=== PATIENT | male | born 1945 | race Caucasian/White ===

== ENCOUNTER 2017-03-21 06:41 | Inpatient (IN) | payer OTHER, MEDICARE ==
[~2017-03-21] VITALS: Ht 170.2 cm; Wt 79.4 kg
--- NOTE | 2017-03-21 07:15 | ED MVC/FALL/TRAUMA COMPLAINT ---
History of Present Illness General Chief Complaint: Fall Stated Complaint: BIBA FOR EVAL FOR FALL Source: patient, EMS Exam Limitations: clinical condition, dementia Vital Signs & Intake/Output Vital Signs & Intake/Output Vital Signs Date Time Temp Pulse Resp B/P B/P Pulse O2 O2 Flow FiO2 Mean Ox Delivery Rate 03/21 1107 97.6 136 22 113/68 96 Room Air 03/21 1103 96.8 136 128/81 03/21 1058 97.1 136 22 128/81 94 Room Air 03/21 1049 97.1 136 20 111/73 95 Room Air 03/21 1036 98.3 136 20 107/71 03/21 1033 136 107/66 03/21 1030 135 107/78 03/21 1029 134 118/76 03/21 1026 136 107/71 03/21 1017 98.0 137 20 125/87 97 Room Air 03/21 0658 98 Room Air 03/21 0656 97.7 137 20 118/83 96 Room Air Allergies Coded Allergies: No Known Allergies (03/21/17) Triage Note: PER ASSISTED LIVING AND EMS PT FELL OOB TRYING TO GET UP PT HX OF TRYING TO BE 1ST IN COMMON AREA TO READ PAPER, DENIES LOC. PT EXTREMELY NOOKSACK C COLLAR IN PLACE FOR PRECAUTION PER EMS. PT UNCLEAR TO EVENTS D/T HEARD OF HEARING. UPON CHANGING PT ON ARRIVAL NOTED TO BE EXTREMELT INCONTINENT AND WITH 3+ PEDAL EDEMA BLE APPEAR RED AND WARM WITH R>L. CALLED BACK TO ROOM FOR FURTHER 2NDARY ASSESSMENT Triage Nurses Notes Reviewed? yes Onset: Abrupt Duration: minute(s): Timing: single episode today Severity: moderate Injuries/Fall Location: head Method of Injury: fall Loss of Consciousness: unsure Modifying Factors: Improves With: rest. Associated Symptoms: RIGHT HEAD BRUISING, SKIN TEAR RIGHT ELBOW. HPI: 72 yo gentleman, h/o [id number], h/o afib "on a blood thinner" presents from assisted living after falling out of his bed. Staff noted bruising on his forehead, a skin tear on his right elbow, and per their report, "he hurt his tailbone." It is uncertain if he lost consciousness or had a syncopal episode. He is otherwise well. (Kojo REID,Anders Raymond) Reconcile Medications Budesonide/Formoterol Fumarate (Symbicort 160-4.5 Mcg Inhaler) 160 MCG-4.5 MCG/ ACTUATION HFA.AER.AD 2 PUF INH BID BREATHING (Reported) Carbidopa/Levodopa (Carbidopa-Levodopa 10-100 Tab) 10 MG-100 MG TABLET 1 TAB PO TID PARKINSONS (Reported) Dipyridamole W/ Aspirin (Aggrenox 25 MG-200 MG Capsule) 25 MG-200 MG CPMP.12HR 1 CAP PO BID HEART HEALTH (Reported) Fluoxetine HCl 20 MG CAPSULE 1 CAP PO DAILY DEPRESSION (Reported) Folic Acid/Vit Bcomp,C (Jennifer-Lalit Tablet) 0.8 MG TABLET 1 TAB PO DAILY VITAMIN (Reported) Metoprolol Succinate 25 MG TAB 1 TAB PO DAILY HTN (Reported) Omeprazole 20 MG CAPSULE.DR 1 CAP PO DAILY GERD (Reported) (Deborah REID,Kleber Hidalgo) Past History Travel History Traveled to [place] past 21 day No Medical History Any Pertinent Medical History? see below for history Neurological: TIA EENT: NOOKSACK Cardiovascular: hypertension Respiratory: COPD Gastrointestinal: NONE Hepatic: NONE Renal: NONE Musculoskeletal: NONE Psychiatric: NONE Endocrine: NONE Surgical History Surgical History: none Psychosocial History What is your primary language Sudanese Tobacco Use: Cognitive Impairment ETOH Use: alcoholic Family History Hx Contributory? No (Kojo REID,Anders Raymond) Review of Systems Review of Systems Constitutional: Reports: no symptoms. Eyes: Reports: no symptoms. Ears, Nose, Throat, Mouth: Reports: no symptoms. Respiratory: Reports: no symptoms. Cardiovascular: Reports: no symptoms. Gastrointestinal/Abdominal: Reports: no symptoms. Genitourinary: Reports: no symptoms. Musculoskeletal: Reports: no symptoms. Skin: Reports: no symptoms. Neurological/Psychological: Reports: no symptoms. All Other Systems: Reviewed and Negative (Kojo REID,Anders Raymond) Physical Exam Physical Exam General Appearance: well developed/nourished, mild distress Head: atraumatic, normal appearance Eyes: Bilateral: normal appearance, PERRL, EOMI. Ears, Nose, Throat, Mouth: hearing grossly normal, moist mucous membrane Neck: normal inspection, paraspinous muscle tender Respiratory: normal breath sounds, chest non-tender, no respiratory distress, quiet respiration, lungs clear Cardiovascular: regular rate/rhythm Gastrointestinal: normal bowel sounds, soft, non-tender Back: muscle spasm, no vertebral tenderness Extremities: right leg with slight external rotation, 3+ edema on right 2+on left, 2+distal pulses, warm Neurologic/Psych: no motor/sensory deficits, awake, alert, oriented x 3 Skin: intact, normal color, warm/dry Core Measures ACS in differential dx? No CVA/TIA Diagnosis No Sepsis Present: No Sepsis Focused Exam Completed? No (Kojo REID,Anders Raymond) Progress Differential Diagnosis: C/T/L spine injury, ext injury, ICH Plan of Care: Orders Procedure Date/time Status Patient Data 03/21 1101 Active Burk, Insertion/Removal/Asses 03/21 0943 Active CULTURE,URINE 03/21 0943 Active URINALYSIS 03/21 0717 Complete TROPONIN LEVEL 03/21 0717 Complete LIPASE 03/21 0717 Complete HEPATIC FUNCTION PANEL 03/21 07 Complete CBC WITHOUT DIFFERENTIAL 03/21 07 Complete BASIC METABOLIC PANEL 03/21 0717 Complete AMYLASE 03/21 0717 Complete EKG 03/21 0644 Active Current Medications Sig/Jairon Start time Last Medication Dose Stop Time Status Admin Diltiazem HCl 10 MG ONCE ONE 03/21 1115 UNVr (Cardizem) 03/21 1116 Diltiazem HCl 125 MG Q12H 03/21 1115 UNVr (Cardizem DRIP) Dextrose/Water 100 ML (D5W) Laboratory Tests 03/21/17 0753: Anion Gap 11, Estimated GFR 50 L, BUN/Creatinine Ratio 20.7, Glucose 105 H, Calcium 8.6, Total Bilirubin 0.3, Direct Bilirubin 0.2, AST 23, ALT 28, Alkaline Phosphatase 79, Troponin I 0.02, Total Protein 6.8, Albumin 3.7, Amylase 56, Lipase 86, CBC w Diff NO MAN DIFF REQ, RBC 3.59 L, MCV 90.5, MCH 29.1, RDW 16.8 H, MPV 7.3 L, Gran % 73.9, Lymphocytes % 15.7 L, Monocytes % 8.7, Eosinophils % 1.3, Basophils % 0.4, Absolute Granulocytes 6.2, Absolute Lymphocytes 1.3, Absolute Monocytes 0.7 H, Absolute Eosinophils 0.1, Absolute Basophils 0, PUBS MCHC 32.1 L, Urine Color STRAW, Urine Clarity HAZY H, Urine pH 6.5, Ur Specific [place] 1.010, Urine Protein NEG, Urine Ketones NEG, Urine Nitrite NEG, Urine Bilirubin NEG, Urine Urobilinogen 0.2, Ur Leukocyte Esterase LARGE H, Ur Microscopic SEDIMENT EXAMINED, Urine RBC RARE, Urine WBC 15-25 H, Ur Epithelial Cells MOD H, Urine Bacteria MOD H, Urine Mucus RARE, Urine Hemoglobin NEG, Urine Glucose NEG Microbiology 03/21 942 URINE ROUT: Urine Culture - ORD Diagnostic Imaging: Viewed by Me: Radiology Read, CT Scan. Discussed w/RAD: Radiology Read, CT Scan. Initial ED EKG: pending Hand-Off Endorsed To: Deborah REID,Kleber Hidalgo Endorsed Time: 0700 Pending: CT, EKG, labs, Xray (Kojo REID,Anders Raymond) Radiology Impression: PATIENT: CHYNA MAC JR. PRESENT AGE: 72 PATIENT ACCOUNT NO: [id number] : 43 LOCATION: ER ORDERING PHYSICIAN: Anders Varma MD SERVICE DATE: 03/21/17 EXAM TYPE: US - US-UNILATERAL VENOUS DOPPLER EXAMINATION: US TRIPLEX LOWER EXTREMITY, RIGHT. CLINICAL INFORMATION: Right leg swelling. COMPARISON: None TECHNIQUE: Color-flow triplex imaging with spectral analysis and compression Doppler were performed on the lower extremity. FINDINGS: Respiratory variation, normal compression and augmented flow are noted throughout the lower extremity. The visualized common femoral vein, superficial femoral vein, profunda femoral vein, popliteal vein and midcalf peroneal and posterior tibial venous segments show no evidence of deep venous thrombosis. There is no Esparza's cyst. IMPRESSION : Normal right lower leg venous study. No evidence of DVT. DICTATED BY: Rios Whalen MD DATE/TIME DICTATED:03/21/17905 MED SPECIALIST:MARISABEL DATE/TIME TRANSCRIBED:03/21/17905 CONFIDENTIAL, DO NOT COPY WITHOUT APPROPRIATE AUTHORIZATION. <Electronically signed in Other Vendor System> SIGNED BY: Rios Whalen MD 03/21/17912, PATIENT: CHYNA MAC JR. PRESENT AGE: 72 PATIENT ACCOUNT NO: [id number] : 43 LOCATION: ER ORDERING PHYSICIAN: Anders Varma MD SERVICE DATE: 03/21/17 EXAM TYPE: CAT - CT ABD & PELVIS W/O IV CONTRAS; CT CHEST WO IV CONTRAST EXAMINATION: CT CHEST, ABDOMEN AND PELVIS WITHOUT CONTRAST CLINICAL INFORMATION: Trauma. COMPARISON: No pertinent prior studies are available for comparison. TECHNIQUE: Multidetector volumetric imaging was performed from the thoracic inlet through the pubic symphysis following the administration of: Oral contrast : None Intravenous contrast: None Sagittal and coronal reformatted images were obtained on the technologist's workstation. TOTAL EXAM DLP: 386.61 mGy-cm FINDINGS: CHEST: LUNG: A left lower lobe pulmonary nodule measures 0.5 cm (image 276, series 5). Several additional juxtapleural pulmonary nodules measure 0.2 cm (image 290) and 0.3 cm (image 313). No evidence of pulmonary consolidation/ contusion. No pneumothorax. PLEURA: No pleural effusion or pneumothorax. MEDIASTINUM: Calcification is present in the abdominal aorta, mitral annulus and extensive coronary artery calcification is present. VASCULAR: Evaluation for vascular injury is limited without intravenous contrast. No visible hematoma or aneurysm is seen. CHEST WALL/AXILLA: No axillary or internal mammary lymphadenopathy. ABDOMEN/PELVIS: LIVER, GALLBLADDER, AND BILIARY TREE: The liver is normal in size, shape, and attenuation. No focal hepatic lesion or biliary ductal dilatation is present. Evaluation for liver injury is limited without intravenous contrast. The gallbladder appears to have a thickened wall but is not well evaluated on this study. No gallbladder calcifications are seen. PANCREAS: Normal; no mass or surrounding fluid. SPLEEN: Normal size. No focal lesion. Evaluation for splenic injury is limited without intravenous contrast. ADRENAL GLANDS: Normal; no mass. KIDNEYS AND URETERS: The bilateral kidneys show moderately severe hydroureteronephrosis. GASTROINTESTINAL TRACT: Stomach and small bowel nondilated. No colonic wall thickening or pericolonic inflammatory changes. No pneumoperitoneum or extraluminal gas is seen. ABDOMINAL WALL: No significant hernia is appreciated. LYMPHOVASCULAR STRUCTURES: No evidence of lymphadenopathy. There is moderate atherosclerotic calcification in the abdominal aorta and iliac arteries and the celiac and superior mesenteric and inferior mesenteric arteries. Evaluation for vascular injury is limited without intravenous contrast. No evidence of aneurysm or retroperitoneal hematoma. BLADDER: The bladder is markedly distended suggesting bladder outlet obstruction. The prostate is enlarged measuring 5 x 5.1 cm in AP and TR dimensions. OSSEOUS STRUCTURES: Multilevel degenerative changes are seen in the thoracic and lumbar spine. No evidence of compression fracture or acute osseous abnormality. IMPRESSION: 1. No traumatic solid organ injury is visualized. The study is limited by the lack of intravenous contrast. 2. Evidence of bladder outlet obstruction with markedly distended bladder extending well above the umbilicus and moderately severe hydroureteronephrosis with prostatomegaly. 3. Nonspecific gallbladder wall thickening. The further evaluated with ultrasound. 4. Left lower lobe pulmonary nodules measuring up to 5 mm in size. Various management parameters for solitary pulmonary nodules are in the literature. According to the Fleischner Society, recommendations for pulmonary nodules are Nodule size > 4-6 mm in LOW RISK PATIENTS: Followup CT at 12 months; if unchanged, no further follow up. Nodule size > 4-6 mm in HIGH RISK PATIENTS: Initial followup CT at 6 months, then at 18 months if no change. DICTATED BY: Braden Rodriguez MD DATE/TIME DICTATED:03/21/17815 MED SPECIALIST:MARISABEL DATE/TIME TRANSCRIBED:03/21/17815 CONFIDENTIAL, DO NOT COPY WITHOUT APPROPRIATE AUTHORIZATION. <Electronically signed in Other Vendor System> SIGNED BY: Braden Rodriguez MD 03/21/17 0844 Comments: Received a call from Dr. Abarca, patient is EKG is being read as A. fib flutter with RVR. Discussed with patient. He has no history of an irregular heartbeat. (Deborah REID,Kleber Hidalgo) Departure Departure Disposition: STILL A PATIENT Condition: Stable Referrals: Gris REID,Afsaneh Rodrigez (PCP/Family) Departure Forms: Customer Survey General Discharge Information Comments pt stable in ED... signed out to dr. cabrera at 03/21/17, 7:15am. (Kojo REID,Anders Raymond) Departure Clinical Impression Primary Impression: New onset a-fib Secondary Impressions: Fall Admission Note Spoke With: Candie REID,Froy Documentation of Exam: Documentation of any treatments & extenuating circumstances including Concerns Regarding Discharge (functional status, medication knowledge or non-compliance, living conditions, etc.) that warrant an admission rather than observation: [ TELE MONITORING, CARDIOLOGY CONSULTATION, SERIAL ENZYMES, ANTICOAGULATION, CARDIZEM DRIP] (Kleber Cabrera MD) Critical Care Note Critical Care Note Critical Care Time: mins: (90 MIN) (Kleber Cabrera MD)
[2017-03-21 08:08] LABS: ABSOLUTE BASOPHIL COUNT 0 /CUMM (0.0-0.2); ABSOLUTE EOSINOPHIL COUNT 0.1 /CUMM (0.0-0.7); ABSOLUTE GRANULOCYTE CT 6.2 /CUMM (1.4-6.5); ABSOLUTE LYMPH COUNT 1.3 /CUMM (1.2-3.4); ABSOLUTE MONOCYTE COUNT 0.7 /CUMM (0.10-0.60); BASOPHIL % 0.4 % (0.0-2.0); EOSINOPHIL % 1.3 % (0-5); GRANULOCYTE % 73.9 % (42.2-75.2); HEMATOCRIT 32.5 % (42-52); MEAN CORPUSCULAR HGB 29.1 PG (27.0-31.0); MEAN CORPUSCULAR HGB CONC 32.1 G/DL (33.0-37.0); MEAN CORPUSCULAR VOLUME 90.5 FL (80.0-94.0); MEAN PLATELET VOLUME 7.3 FL (7.4-10.4); PLATELET COUNT 341 /CUMM (130-400); RBC DISTRIBUTION WIDTH 16.8 % (11.5-14.5); RED BLOOD CELL CT 3.59 /CUMM (4.70-6.10); WHITE BLOOD CELL COUNT 8.4 /CUMM (4.8-10.8)
[2017-03-21] MEDS ORDERED: FLUOXETINE HCL20 M2 PO (08:09)
[2017-03-21] MEDS ORDERED: CARBIDOPA-LEVO1 EAC6 PO (08:09)
[2017-03-21] MEDS ORDERED: OMEPRAZOLE20 M2 PO (08:09)
[2017-03-21] MEDS ORDERED: METOPROLOL SUCC25 M1 PO (08:10)
[2017-03-21] MEDS ORDERED: SYMBICORT 16010.2 GM INH (08:10)
[2017-03-21] MEDS ORDERED: AGGRENOX 25 MG1 EACH PO (08:11)
[2017-03-21] MEDS ORDERED: RENA-VITE TABL0.8 MG PO (08:11)
--- NOTE | 2017-03-21 08:44 | CT SCAN REPORT ---
EXAMINATION: CT CHEST, ABDOMEN AND PELVIS WITHOUT CONTRAST CLINICAL INFORMATION: Trauma. COMPARISON: No pertinent prior studies are available for comparison. TECHNIQUE: Multidetector volumetric imaging was performed from the thoracic inlet through the pubic symphysis following the administration of: Oral contrast: None Intravenous contrast: None Sagittal and coronal reformatted images were obtained on the technologist's workstation. TOTAL EXAM DLP: 386.61 mGy-cm FINDINGS: CHEST: LUNG: A left lower lobe pulmonary nodule measures 0.5 cm (image 276, series 5). Several additional juxtapleural pulmonary nodules measure 0.2 cm (image 290) and 0.3 cm (image 313). No evidence of pulmonary consolidation/contusion. No pneumothorax. PLEURA: No pleural effusion or pneumothorax. MEDIASTINUM: Calcification is present in the abdominal aorta, mitral annulus and extensive coronary artery calcification is present. VASCULAR: Evaluation for vascular injury is limited without intravenous contrast. No visible hematoma or aneurysm is seen. CHEST WALL/AXILLA: No axillary or internal mammary lymphadenopathy. ABDOMEN/PELVIS: LIVER, GALLBLADDER, AND BILIARY TREE: The liver is normal in size, shape, and attenuation. No focal hepatic lesion or biliary ductal dilatation is present. Evaluation for liver injury is limited without intravenous contrast. The gallbladder appears to have a thickened wall but is not well evaluated on this study. No gallbladder calcifications are seen. PANCREAS: Normal; no mass or surrounding fluid. SPLEEN: Normal size. No focal lesion. Evaluation for splenic injury is limited without intravenous contrast. ADRENAL GLANDS: Normal; no mass. KIDNEYS AND URETERS: The bilateral kidneys show moderately severe hydroureteronephrosis. GASTROINTESTINAL TRACT: Stomach and small bowel nondilated. No colonic wall thickening or pericolonic inflammatory changes. No pneumoperitoneum or extraluminal gas is seen. ABDOMINAL WALL: No significant hernia is appreciated. LYMPHOVASCULAR STRUCTURES: No evidence of lymphadenopathy. There is moderate atherosclerotic calcification in the abdominal aorta and iliac arteries and the celiac and superior mesenteric and inferior mesenteric arteries. Evaluation for vascular injury is limited without intravenous contrast. No evidence of aneurysm or retroperitoneal hematoma. BLADDER: The bladder is markedly distended suggesting bladder outlet obstruction. The prostate is enlarged measuring 5 x 5.1 cm in AP and TR dimensions. OSSEOUS STRUCTURES: Multilevel degenerative changes are seen in the thoracic and lumbar spine. No evidence of compression fracture or acute osseous abnormality. IMPRESSION: 1. No traumatic solid organ injury is visualized. The study is limited by the lack of intravenous contrast. 2. Evidence of bladder outlet obstruction with markedly distended bladder extending well above the umbilicus and moderately severe hydroureteronephrosis with prostatomegaly. 3. Nonspecific gallbladder wall thickening. The further evaluated with ultrasound. 4. Left lower lobe pulmonary nodules measuring up to 5 mm in size. Various management parameters for solitary pulmonary nodules are in the literature. According to the Fleischner Society, recommendations for pulmonary nodules are Nodule size > 4-6 mm in LOW RISK PATIENTS: Followup CT at 12 months; if unchanged, no further follow up. Nodule size > 4-6 mm in HIGH RISK PATIENTS: Initial followup CT at 6 months, then at 18 months if no change.
--- NOTE | 2017-03-21 09:13 | ULTRASOUND REPORT ---
EXAMINATION: US TRIPLEX LOWER EXTREMITY, RIGHT. CLINICAL INFORMATION: Right leg swelling. COMPARISON: None TECHNIQUE: Color-flow triplex imaging with spectral analysis and compression Doppler were performed on the lower extremity. FINDINGS: Respiratory variation, normal compression and augmented flow are noted throughout the lower extremity. The visualized common femoral vein, superficial femoral vein, profunda femoral vein, popliteal vein and midcalf peroneal and posterior tibial venous segments show no evidence of deep venous thrombosis. There is no Esparza's cyst. IMPRESSION: Normal right lower leg venous study. No evidence of DVT.
--- NOTE | 2017-03-21 10:28 | RADIOLOGY REPORT ---
EXAMINATION: XR ELBOW, RIGHT XR KNEE, RIGHT CLINICAL INFORMATION: A 72-year-old male presented with right elbow and right knee pain. Status post fall. COMPARISON: None. TECHNIQUE: Three views, 5 images of the right elbow. Three views, 5 images of the right knee were obtained. FINDINGS: Right Elbow: Technically limited due to suboptimal positioning. Mild osteoarthrosis is noted. No radiographic evidence of any definite displaced fracture identified on these images. Right Knee: Technically limited due to suboptimal positioning. There is significant soft tissue swelling present. No definite radiographic evidence of any displaced fracture identified. IMPRESSION: 1. Technically limited study due to suboptimal positioning of both the right elbow and right knee. 2. No radiographic evidence of any displaced fracture is visualized within the right elbow and right knee. 3. Significant soft tissue swelling around the right knee.
--- NOTE | 2017-03-21 11:09 | CT SCAN REPORT ---
EXAMINATION: CT BRAIN AND CT CERVICAL SPINE WITHOUT CONTRAST. CLINICAL INFORMATION: Trauma. Fall. COMPARISON: None TECHNIQUE: 5 mm thin axial images of brain were obtained without contrast. Subsequently 2.5 mm thin axial and reformatted sagittal and coronal images of cervical spine were obtained. Dose 932 FINDINGS: BRAIN: There is no acute intra-axial, extra-axial bleed, masses or midline shift. 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 There is diffuse periventricular hypodensity in both cerebral hemispheres without mass effect. The lateral ventricles are enlarged and so are the cortical sulci suggestive of cerebral atrophy. Bone windows reveal no calvarial abnormality. There is moderate mucoperiosteal thickening bilateral maxillary and ethmoid sinuses. CERVICAL SPINE: Sagittal reconstructed images there is maintained cervical lordosis. The vertebral heights and alignment is normal. Mild loss of C7-T1 disc heights is noted. There is no visible acute fracture, dislocation or lytic process. There is left C2-C3, bilateral C3-C4 and left C4-C5 facet joint arthropathy. The prevertebral and paravertebral soft tissues are normal. The lung apices are clear. IMPRESSION: No acute intracranial abnormality seen except for moderate cerebral atrophy and diffuse periventricular hypodensity of white matter in both cerebral hemispheres. 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 There is no acute fracture or dislocation cervical spine. There is facet joint arthropathy upper cervical spine.
--- NOTE | 2017-03-21 13:16 | History & Physical ---
Jair REID,[facility] 03/21/17 1316: General Information and HPI MD Statement: I have seen and personally examined ESTEFANIA DANIELCHYNA Rodrigez and documented this H&P. The patient is a 72 year old M who presented with a patient stated chief complaint of [fall]. Source of Information: family, [facility], [facility] living facility Exam Limitations: dementia, hard of hearing History of Present Illness: Mr. Hull is a 72-year-old male with past medical history significant for hypertension, COPD, dementia, Parkinson disease, depression, GERD, who presented to ED from assisting [facility] after a fall. Patient is unable to give history because of underlying dementia and hard of hearing. History was obtained from the nurse at the [facility] and patient's son. Patient was trying get his newspaper to read it around 6 AM this morning and he fell down, called for help and nurse came to his apartment and found him alert/ oriented on the floor, hit his head, no report for convulsion or urine/stool incontinence. Patient had a laceration on the right temporal side, laceration on the right elbow. Patient is unable to give review of system however denied SOB, chest pain, abdominal pain or tenderness, hematuria. Allergies/Medications Allergies: Coded Allergies: No Known Allergies (03/21/17) Home Med list Budesonide/Formoterol Fumarate (Symbicort 160-4.5 Mcg Inhaler) 160 MCG-4.5 MCG/ ACTUATION HFA.AER.AD 2 PUF INH BID BREATHING (Reported) Carbidopa/Levodopa (Carbidopa-Levodopa 10-100 Tab) 10 MG-100 MG TABLET 1 TAB PO TID PARKINSONS (Reported) Dipyridamole W/ Aspirin (Aggrenox 25 MG-200 MG Capsule) 25 MG-200 MG CPMP.12HR 1 CAP PO BID HEART HEALTH (Reported) Fluoxetine HCl 20 MG CAPSULE 1 CAP PO DAILY DEPRESSION (Reported) Folic Acid/Vit Bcomp,C (Jennifer-Lalit Tablet) 0.8 MG TABLET 1 TAB PO DAILY VITAMIN (Reported) Metoprolol Succinate 25 MG TAB 1 TAB PO DAILY HTN (Reported) Omeprazole 20 MG CAPSULE.DR 1 CAP PO DAILY GERD (Reported) Past History Travel History Traveled to [place] past 21 day No Medical History Neurological: TIA EENT: [place] Cardiovascular: hypertension Respiratory: COPD Gastrointestinal: NONE Hepatic: NONE Renal: NONE Musculoskeletal: NONE Psychiatric: NONE Endocrine: NONE Surgical History Surgical History: none Past Family/Social History Psychosocial History ETOH Use: alcoholic Review of Systems Review of Systems Constitutional: Reports: see HPI. Exam & Diagnostic Data Last 24 Hrs of Vital Signs/I&O Vital Signs Date Time Temp Pulse Resp B/P B/P Pulse O2 O2 Flow FiO2 Mean Ox Delivery Rate 03/21 1333 97.2 139 20 127/82 96 Room Air 03/21 1244 97.6 138 18 144/80 03/21 1155 98.0 138 18 128/74 96 Room Air 03/21 1125 98.0 136 18 109/79 96 Room Air 03/21 1107 97.6 136 22 113/68 96 Room Air 03/21 1103 96.8 136 128/81 03/21 1058 97.1 136 22 128/81 94 Room Air 03/21 1049 97.1 136 20 111/73 95 Room Air 03/21 1036 98.3 136 20 107/71 03/21 1033 136 107/66 03/21 1030 135 107/78 03/21 1029 134 118/76 03/21 1026 136 107/71 03/21 1017 98.0 137 20 125/87 97 Room Air 03/21 0658 98 Room Air 03/21 0656 97.7 137 20 118/83 96 Room Air Intake & Output 03/21 1600 03/21 0800 03/21 0000 Intake Total Output Total 3250 Balance -3250 Output, Urine 3250 Patient 79.379 kg Weight Physical Exam General Appearance Alert, Cooperative, No Acute Distress Skin laceration of the right elbow laceration on right temporal area Skin Temp/Moisture Exam: Warm/Dry HEENT Atraumatic, PERRLA, EOMI, Mucous Membr. moist/pink Neck Supple Lymphatic no lymphadenopathy Cardiovascular Regular Rate, Normal S1, Normal S2, No Murmurs Lungs Clear to Auscultation, Normal Air Movement, No wheeze Abdomen Normal Bowel Sounds, Soft, No Tenderness Neurological unobtainable patient can not follow instruction becuase of hearing problem Extremities No Clubbing, No Cyanosis, Normal Pulses, BL +3 pedal edema up to knees R>L Assessment/Plan Assessment: Mr. Hull is a 72-year-old male with past medical history significant for hypertension, COPD, dementia, Parkinson disease, depression, GERD, who presented to ED from [facility] after a fall. On presentation, vital signs 97.7, pulse 137 regular, blood pressure 118/83, saturating 96% on room air Labs significant for WBC 8.4, H&H 10.4/32.5, platelet 341, sodium 147, potassium 4.5, chloride 104, bicarbonate 31, BUN/creatinine 29/1.4, glucose 105 As a protocol for any patient presented with history of fall, CT scan head, cervical spine, chest, abdomen and pelvis were obtained, it was negative for any intracranial acute pathology or cervical, thoracic and lumbar spine fracture. CT abdomen and pelvis revealed bladder outlet obstruction with markedly distended bladder extending well above the umbilicus and moderately severe hydroureteronephrosis with prostatomegaly [address] chest significant for Left lower lobe pulmonary nodules measuring up to 5 mm in size. No previous images to compare. Problem list #Fall #Anemia acute versus chronic #New onset atrial fibrillation/A flutter #Urinary outlet obstruction with evidence of prostatomegaly #DANG #Bilateral lower extremity edema Plan Admit to telemetry floor #Fall Patient has history of fall, unclear if he lost his consciousness or not. Was found alert oriented on the floor, hit his head, CT didn't show any intracranial changes. -Obtain orthostatic measurement -Prolactin is mildly elevated 19 doesn't go with seizure attack -EKG revealed signs of a flutter/A. fib fibrillation #Anemia acute versus chronic Patient presented with hemoglobin 10.4/32.5, no previous baseline. After draining 2500 mL of clear urine by Burk catheter, patient started to have syeda hematuria. No history of previous hematuria per patient/son/nurse. Given significant hematuria, will repeat CBC later today. -2 large-bore peripheral IV lines -Type and crossmatch -Repeat CBC in 6 PM and transfuse if needed, given new onset A. fib transfuse for hemoglobin less than 8 however wait for cardiac recommendation -Obtain folic acid, vitamin B12 #New onset atrial fibrillation/A flutter -EKG was reviewed by preschool director Dr. Abarca -Patient received 3 boluses of 10 mg IV Cardizem however continued to be tachycardic, patient was started on Cardizem drip -Hold off anticoagulation for syeda hematuria -Admission troponin is 0.02, trend troponin and EKG #Urinary outlet obstruction with evidence of prostatomegaly -Burk catheter placement in ED yielded 2500 mL of clear yellow urine, patient started to have syeda hematuremia afterwards -Abdominal x-ray was obtained to confirm the position of Burk catheter however the radiologist couldn't find Burk catheter in this image. Contact [place] reading room and spoke with the radiologist Dr. PULLIAM who recommended abdominal ultrasound -Will obtain abdominal ultrasound to localize the Burk catheter -Urology consultation was placed, pending recommendation -PSA 8.51. No report for BPH or any prostate abnormality per son -UA negative for infection -We'll obtain urine cytology #DANG Creatinine is mildly elevated 1.4 -Repeat BMP in a.m. -Hold off IV fluid for possible CHF -No available baseline however will obtain records from senior living #Bilateral lower extremity edema Possible CHF, no report for LE edema from [facility] -We'll obtain proBNP -Echocardiogram -Cardiology consultation code full DVT prophlaxes ALPS for syeda hematuria Diet NPO for abdominal images As Ranked By This Provider Problem List: 1. Fall 2. New onset a-fib Core Measures/Misc (11/16) Acute Coronary Syndrome ACS Diagnosis: No Congestive Heart Failure Congestive Heart Failure Diagnosis No Cerebrovascular Accident CVA/TIA Diagnosis: No VTE (View Protocol) VTE Risk Factors Age>40 No Mechanical VTE Prophylaxis d/t N/A MechProphylax Ordered No VTE Pharm Prophylaxis d/t Bleeding (Active) Sepsis (View protocol) Sepsis Present: No Froy Schreiber 03/21/17 1519: Attending MD Review Statement Attending Statement Attending MD Statement: examined this patient, discuss w/resident/PA/HORSER UP, agreed w/resident/PA/HORSER UP, discussed with family, reviewed EMR data (avail), discussed with nursing, discussed with case mgmt, reviewed images, amended to note Attending Assessment/Plan: Patient resident of facility pmh of parkinson disease, 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 Patient admitted to telemetry monitoring. Obtain serial cardiac enzymes and serial cbc monitoring. ECHO as per cardiology, Cardiology and urology consult. Transfuse PRBC if hb<8. Patient started with cardizem for rate control, a/c as per cardiology and urology. Monitor creatinine and hemodynamics closely. gi/dvt prophyalxis full code.
--- NOTE | 2017-03-21 13:37 | RADIOLOGY REPORT ---
EXAMINATION: XR ABDOMEN CLINICAL INDICATION: Position of Burk's catheter. COMPARISON: None TECHNIQUE: AP view of the abdomen. FINDINGS: Nonspecific bowel gas pattern is present. There is no definite radiographic evidence of Burk's catheter visualized within the included part of the pelvis. IMPRESSION: No radiographic evidence of Burk's catheter visualized within the included part of the pelvis.
--- NOTE | 2017-03-21 14:05 | PN- Student ---
Subjective Subjective: CC - Fall Source of History:Patient,retirement and past medical records Limitations:Patient extremely hard of hearing,poor articulation/poor historian Primary Language: Albanian HPI: Woo Hull Jr is a 72/m that was BIBA for evaluation following a fall at his assisted living home [facility].He has a past medical history of HTN,COPD, Parkinsons,TIA,GERD and alcohol abuse. Patient reports that he fell and hit his head x2 over the last 24 hours,last night around 4am and this morning.He decribes that it happened all of a sudden.He fell and needed help getting up but does not know if he blacked out.assisted staff reports that they are only aware of one fall at approximately 6 am and that he was conscious when they got to him.Nurse at his assisted living home reports that he is urine incontinent, and started to wheeze yesterday.For said wheeze he was given an inhaled treatment and a dose of his symbicort.He was also started on metoprolol 25 mg po 1 daily on Thursday as per his PA due to increased blood pressure.It is also reported that the patient recently had nose bleeds and was advised to have an ENT consult. Allergy :NKDA Past History Medical History Neurological: Parkinson's disease, TIA EENT: hearing loss Cardiovascular: hypertension Respiratory: COPD Surgical History Surgical History: unobtainable Psychosocial History Where Do You Live? Assisted Living Who Do You Live With? self Primary Language: Albanian Smoking Status: Unknown If Ever Smoked ETOH Use: alchol abuse HOME MEDS Home Med List Budesonide/Formoterol Fumarate (Symbicort 160-4.5 Mcg Inhaler) 160 MCG-4.5 MCG/ ACTUATION HFA.AER.AD 2 PUF INH BID BREATHING (Reported) Carbidopa/Levodopa (Carbidopa-Levodopa 10-100 Tab) 10 MG-100 MG TABLET 1 TAB PO TID PARKINSONS (Reported) Dipyridamole W/ Aspirin (Aggrenox 25 MG-200 MG Capsule) 25 MG-200 MG CPMP.12HR 1 CAP PO BID HEART HEALTH (Reported) Fluoxetine HCl 20 MG CAPSULE 1 CAP PO DAILY DEPRESSION (Reported) Folic Acid/Vit Bcomp,C (Jennifer-Lalit Tablet) 0.8 MG TABLET 1 TAB PO DAILY VITAMIN (Reported) Metoprolol Succinate 25 MG TAB 1 TAB PO DAILY HTN (Reported) Omeprazole 20 MG CAPSULE.DR 1 CAP PO DAILY GERD (Reported) Review of Systems Review of Systems Constitutional: Reports: no symptoms. EENTM: Reports: no symptoms. Cardiovascular: Reports: no symptoms. Respiratory: Reports: no symptoms. GI: Denies: abdominal pain. Genitourinary: Reports: no symptoms. Musculoskeletal: Reports: no symptoms. Objective Objective: Vital Signs Date Time Temp Pulse Resp B/P B/P Pulse O2 O2 Flow FiO2 Mean Ox Delivery Rate 03/21 1333 97.2 139 20 127/82 96 Room Air 03/21 1244 97.6 138 18 144/80 03/21 1155 98.0 138 18 128/74 96 Room Air 03/21 1125 98.0 136 18 109/79 96 Room Air 03/21 1107 97.6 136 22 113/68 96 Room Air 03/21 1103 96.8 136 128/81 03/21 1058 97.1 136 22 128/81 94 Room Air 03/21 1049 97.1 136 20 111/73 95 Room Air 03/21 1036 98.3 136 20 107/71 03/21 1033 136 107/66 03/21 1030 135 107/78 03/21 1029 134 118/76 03/21 1026 136 107/71 03/21 1017 98.0 137 20 125/87 97 Room Air 03/21 0658 98 Room Air 03/21 0656 97.7 137 20 118/83 96 Room Air Intake & Output 03/21 1600 03/21 0800 03/21 0000 Intake Total Output Total 2500 Balance -2500 Output, Urine 2500 Patient 175 lb Weight Results Results: Laboratory Tests 03/21/17 0753: Anion Gap 11, Estimated GFR 50 L, BUN/Creatinine Ratio 20.7, Glucose 105 H, Calcium 8.6, Total Bilirubin 0.3, Direct Bilirubin 0.2, AST 23, ALT 28, Alkaline Phosphatase 79, Troponin I 0.02, Ymt-M-[place] Pept 3210 H, Total Protein 6.8, Albumin 3.7, Amylase 56, Lipase 86, Total PSA 8.51 H, TSH 1.240, Free T4 1.40, Prolactin 19.5 H, CBC w Diff NO MAN DIFF REQ, RBC 3.59 L, MCV 90.5, MCH 29.1, RDW 16.8 H, MPV 7.3 L, Gran % 73.9, Lymphocytes % 15.7 L, Monocytes % 8.7, Eosinophils % 1.3, Basophils % 0.4, Absolute Granulocytes 6.2, Absolute Lymphocytes 1.3, Absolute Monocytes 0.7 H, Absolute Eosinophils 0.1, Absolute Basophils 0, PUBS MCHC 32.1 L, Urine Color STRAW, Urine Clarity HAZY H, Urine pH 6.5, Ur Specific [place] 1.010, Urine Protein NEG, Urine Ketones NEG, Urine Nitrite NEG, Urine Bilirubin NEG, Urine Urobilinogen 0.2, Ur Leukocyte Esterase LARGE H, Ur Microscopic SEDIMENT EXAMINED, Urine RBC RARE, Urine WBC 15-25 H, Ur Epithelial Cells MOD H, Urine Bacteria MOD H, Urine Mucus RARE, Urine Hemoglobin NEG, Urine Glucose NEG Microbiology 03/21 0943 URINE ROUT: Urine Culture - ORD CT CHEST,ABDOMEN,PELVIS W.O IV CONTRAST. 1. No traumatic solid organ injury is visualized. The study is limited by the lack of intravenous contrast. 2. Evidence of bladder outlet obstruction with markedly distended bladder extending well above the umbilicus and moderately severe hydroureteronephrosis with prostatomegaly. 3. Nonspecific gallbladder wall thickening. The further evaluated with ultrasound. 4. Left lower lobe pulmonary nodules measuring up to 5 mm in size. Various management parameters for solitary pulmonary nodules are in the literature. According to the Fleischner Society, recommendations for pulmonary nodules are Nodule size > 4-6 mm in LOW RISK PATIENTS: Followup CT at 12 months; if unchanged, no further follow up. Nodule size > 4-6 mm in HIGH RISK PATIENTS: Initial followup CT at 6 months, then at [address] if no change. CT BRAIN AND CT CERVICAL SPINE WITHOUT CONTRAST. No acute intracranial abnormality seen except for moderate cerebral atrophy and diffuse periventricular hypodensity of white matter in both cerebral hemispheres. 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 There is no acute fracture or dislocation cervical spine. There is facet joint arthropathy upper cervical spine. EXAM TYPE: RAD - XRY- R. ELBOW R.KNEE 1. Technically limited study due to suboptimal positioning of both the right elbow and right knee. 2. No radiographic evidence of any displaced fracture is visualized within the right elbow and right knee. 3. Significant soft tissue swelling around the right knee. US TRIPLEX LOWER EXTREMITY, RIGHT. Normal right lower leg venous study. No evidence of DVT. Physical Exam Physical Exam General Appearance: no apparent distress, alert, awake Head: atraumatic Ears, Nose, Throat: hearing decreased Cardiovascular: tachycardia Gastrointestinal: soft, non-tender Extremities: +3 pitting edema bilaterally r>l,red,warm to touch Core Measures ACS in differential dx? Yes CVA/TIA Diagnosis: No Sepsis Present: No Sepsis Focused Exam Completed? No Assessment/Plan Assessment: Woo Hull Jr is a 72/m that was BIBA for evaluation following a fall at his assisted living home.He has a past medical history of HTN,COPD,Parkinsons,TIA and alcohol abuse.Based on EKG patient is presenting with a new onset Atrial flutter/Afib w RVR.There is also currently blood in his urine as seen on Wu cath collection.His heart rate is persistently elevated in the 130's even after 3 doses of cardizem.Given the patients current status admission is warranted w/ telemetry monitoring and cardiology consult. Problesm List: -FALL -HTN -Atrial Fibrillation -Bladder outlet obstruction w/prostatemegaly -Left Lower Lobe Nodules -lower extemity edema Plan: -FALL Patient presents with a chief complaint of fall.Limited history was obtained as to the events preceeding and following the fall as the patient is extemely hard of hearing and the fall was un-witnessed.It is possible it was due to syncope, medication interations or possible seizure activity.Patient does report hitting his head with fall.Imagine reveals no acute intracranial abnormality seen except for moderate cerebral atrophy and diffuse periventricular hypodensity of white matter in both cerebral hemispheres. There is lacunar infarction left thalamus and left external capsule.There is no acute fracture or dislocation cervical spine. There is facet joint arthropathy upper cervical spine.Knee Xray shows significant soft tissue swelling around the right knee.Patients abnormal EKG for AFibb can possibly have lead to syncope which lead to his fall. -CBC/BMP -prolactin level -orthostatic vitals -telemonitoring -TSH / Free T4 levels -orthostatic vitals -EEG -HTN Patient has a previous history of HTN.Patient was recently on Thursday given new medication (metoprolol 25 mg po 1 daily) for persistent hypertention.This new medication may have attributed to the patients fall,possible interaction.On CT of Chest/Abdomen there is moderate atherosclerotic calcification present in the abdominal aorta, mitral annulus, iliac arteries and the celiac and superior mesenteric and inferior mesenteric arteries and extensive coronary artery calcification is present which most likely contributes to his hypertention.This needs to be evalutated to prevent possible future acute coronary events.THis Calcification can also be attributed to his old age as well.Risk factors for his hypertention also includes his past TIA and alchol abuse history. -review meds -cardiology consult -Atrial Fibrillation Patient has no prior cardiac history.AFibb seems to be new onset.Currently,pulse rates are in the 140's even though patient is being given cardizem IV.Patient is currently on antiplatelet meds at home (aggrenox). -Increase Cardizem dose and obtain rate control -CXRAY -EKG + troponins x3 -ECHO -cardiology consult -due to blood in urine hold anticoagulation -Bladder outlet obstruction w/prostatemegaly On CT imaging bilateral kidneys show moderately severe hydroureteronephrosis.The bladder is markedly distended suggesting bladder outlet obstruction. The prostate is enlarged measuring 5 x 5.1 cm in AP and TR dimensions.Enlarged prostate maybe the cause of the patients bladder outlet obstruction and urinary incontinece.Enlarged prostate may be due to BPH or Prostate cancer.Patient was placed on wu and gave 2550ml of clear urine before there was noticable clots and syeda blood in the urine.Wu placement may be the cause of his bleed vs pathology. -ultrasound to confirm wu placement -PSA -UA for possible infection -urology consult. -Left Lower Lobe Nodules Chest Xray shows multiple nodules ranging 0.2cm - 0.5 cm in size.Cause is unknown possibly mets. -PET scan -Transthoracic needle biopsy -Lower Extremity Edema Lower legs bilaterally was edematous with +3 pitting ,r> l,tender and warm to touch.No report of edema from retirement but they do advise that he keeps it elevated.Right maybe worse than left due to fall this morning but it does not explain the pitting edema.Possible CHF exacerbation. -pro BNP -Echo -cardio consult Code: FULL Diet: NPO for abdominal images DVT prophylaxsis : ALPS for syeda hematuria
--- NOTE | 2017-03-21 15:43 | ULTRASOUND REPORT ---
EXAMINATION: US ABDOMEN LIMITED CLINICAL INFORMATION: Confirm Burk's catheter.. COMPARISON: None TECHNIQUE: Real-time imaging of the right upper quadrant abdominal viscera. FINDINGS: Mildly distended urinary bladder with a Burk's inflated catheter seen in the bladder. There is a large hyperechoic area seen in the dependent portion bladder, question mass versus debris. It is unlikely to represent an enlarged prostate. IMPRESSION: A Burk's catheter lies within the urinary bladder. However there is a soft tissue mass seen along the dependent portion of bladder suspicious for intrinsic lesion. Differential diagnosis to consider is intrinsic debris. Recommend cystoscopy.
[2017-03-21 16:53] LABS: PT 11.3 SEC (9.4-12.5); PTT 35 SEC (25-37)
[2017-03-21 17:17] VITALS: BP 110/70
--- NOTE | 2017-03-21 17:18 | Cons- Cardiology ---
General Information and HPI Consulting Request Date of Consult: 03/21/17 Requested By: Froy Schreiber MD Reason for Consult: "New onset" atrial flutter. Source of Information: patient, old records Exam Limitations: physical impairment (extremely hard of hearing.) History of Present Illness: Mr. Woo Hull is a 72-year-old male with a hypertension, COPD, dementia, depression, Parkinson's disease, and GERD, who presented to ED from his assisting living facility following a mechanical fall. The patient is extremely hard of hearing precluding the ability to effective communication. History was obtained from his nurse at the assisting living facility and patient 's son. Mr. Hull was reportedly trying get his newspaper to read it around 6 a.m. this morning and he fell down with a head strike and called for help. The nurse came to his apartment and found him alert/oriented on the floor with several obvious lacerations (right temporal region & right elbow). There was reportedly no evidence of seizure activity, incontinence of any kind, oral trauma, etc. With yelling to communicate he denies any chest discomfort, palpitations, shortness of breath, etc. He reportedly was very incontinent of urine in the ED and had a large residual volume (2.5 L) after a Burk catheter was placed and is now draining bloody urine. I was reading ECGs earlier and saw that Mr. Hull was in atrial flutter with 2:1 block. Allergies/Medications Allergies: Coded Allergies: No Known Allergies (03/21/17) Home Med List: Budesonide/Formoterol Fumarate (Symbicort 160-4.5 Mcg Inhaler) 160 MCG-4.5 MCG/ ACTUATION HFA.AER.AD 2 PUF INH BID BREATHING (Reported) Carbidopa/Levodopa (Carbidopa-Levodopa 10-100 Tab) 10 MG-100 MG TABLET 1 TAB PO TID PARKINSONS (Reported) Dipyridamole W/ Aspirin (Aggrenox 25 MG-200 MG Capsule) 25 MG-200 MG CPMP.12HR 1 CAP PO BID HEART HEALTH (Reported) Fluoxetine HCl 20 MG CAPSULE 1 CAP PO DAILY DEPRESSION (Reported) Folic Acid/Vit Bcomp,C (Jennifer-Lalit Tablet) 0.8 MG TABLET 1 TAB PO DAILY VITAMIN (Reported) Metoprolol Succinate 25 MG TAB 1 TAB PO DAILY HTN (Reported) Omeprazole 20 MG CAPSULE. 1 CAP PO DAILY GERD (Reported) Review of Systems Review of Systems: Attempted, but unobtainable due to the patient's extreme hearing loss. Past History Travel History Traveled to [place] past 21 day No Medical History Neurological: Parkinson's disease, TIA EENT: hearing loss Cardiovascular: hypertension Respiratory: COPD Gastrointestinal: NONE Hepatic: NONE Renal: NONE Musculoskeletal: NONE Psychiatric: NONE Endocrine: NONE Surgical History Surgical History: unobtainable Psychosocial History Where Do You Live? Assisted Living Who Do You Live With? self Primary Language: Irish Smoking Status: Unknown If Ever Smoked ETOH Use: alchol abuse Exam & Diagnostic Data Vital Signs and I&O Vital Signs Date Time Temp Pulse Resp B/P B/P Pulse O2 O2 Flow FiO2 Mean Ox Delivery Rate 03/21 1552 97.4 142 18 118/78 96 Room Air 03/21 1455 96.8 140 18 126/74 97 Room Air 03/21 1333 97.2 139 20 127/82 96 Room Air 03/21 1244 97.6 138 18 144/80 03/21 1155 98.0 138 18 128/74 96 Room Air 03/21 1125 98.0 136 18 109/79 96 Room Air 03/21 1107 97.6 136 22 113/68 96 Room Air 03/21 1103 96.8 136 128/81 03/21 1058 97.1 136 22 128/81 94 Room Air 03/21 1049 97.1 136 20 111/73 95 Room Air 03/21 1036 98.3 136 20 107/71 03/21 1033 136 107/66 03/21 1030 135 107/78 03/21 1029 134 118/76 03/21 1026 136 107/71 03/21 1017 98.0 137 20 125/87 97 Room Air 03/21 0658 98 Room Air 03/21 0656 97.7 137 20 118/83 96 Room Air Intake & Output 03/21 1600 03/21 0800 03/21 0000 03/20 1600 03/20 0803/20 0000 Intake Total Output Total 3250 Balance -3250 Output, Urine 3250 Patient 175 lb Weight Physical Exam: Well-developed, well-nourished elderly male in no acute distress. Vital signs: See above. HEENT: Normocephalic, atraumatic, EOMI, slightly dry mucous membranes. Neck: No JVD, no bruits. Lungs: Clear to auscultation bilaterally. Heart: S1, S2 with 1/6 systolic murmur. No gallop or rub. PMI fifth ICS at MCL. Abdomen: Soft, nontender, positive bowel sounds. Extremities: Trace bilateral lower extremity edema. Labs/Benjie Results: Laboratory Tests 03/21 03/21 03/21 1410 1242 0753 Chemistry Sodium (137 - 145 mmol/L) 147 H Potassium (3.5 - 5.1 mmol/L) 4.5 Chloride (98 - 107 mmol/L) 104 Carbon Dioxide (22 - 30 mmol/L) 31 H Anion Gap (5 - 16) 11 BUN (9 - 20 mg/dL) 29 H Creatinine (0.7 - 1.2 mg/dL) 1.4 H Estimated GFR (>60 ml/min) 50 L BUN/Creatinine Ratio (7 - 25 %) 20.7 Glucose (65 - 99 mg/dL) 105 H Calcium (8.4 - 10.2 mg/dL) 8.6 Total Bilirubin (0.2 - 1.3 mg/dL) 0.3 Direct Bilirubin (< 0.4 mg/dL) 0.2 AST (17 - 59 U/L) 23 ALT (21 - 72 U/L) 28 Alkaline Phosphatase (< 127 U/L) 79 Troponin I (<0.11 ng/ml) < 0.01 0.02 Eis-A-Jvghafrvcnw Pept (<125 pg/mL) 3210 H Total Protein (6.3 - 8.2 g/dL) 6.8 Albumin (3.5 - 5.0 g/dL) 3.7 Amylase (30 - 110 U/L) 56 Lipase (23 - 300 U/L) 86 Total PSA (0.00 - 4.00 ng/mL) 8.51 H TSH (0.270 - 4.200 uIU/mL) 1.240 Free T4 (0.78 - 2.44 ng/dL) 1.40 Prolactin (3.7 - 17.9 ng/mL) 19.5 H Coagulation PT (9.4 - 12.5 SEC) 11.3 INR (0.90 - 1.17) 1.08 APTT (25 - 37 SEC) 35 Hematology CBC w Diff NO MAN DIFF REQ WBC (4.8 - 10.8 /CUMM) 8.4 RBC (4.70 - 6.10 /CUMM) 3.59 L Hgb (14.0 - 18.0 G/DL) 10.4 L Hct (42 - 52 %) 32.5 L MCV (80.0 - 94.0 FL) 90.5 MCH (27.0 - 31.0 PG) 29.1 RDW (11.5 - 14.5 %) 16.8 H Plt Count (130 - 400 /CUMM) 341 MPV (7.4 - 10.4 FL) 7.3 L Gran % (42.2 - 75.2 %) 73.9 Lymphocytes % (20.5 - 51.1 %) 15.7 L Monocytes % (1.7 - 9.3 %) 8.7 Eosinophils % (0 - 5 %) 1.3 Basophils % (0.0 - 2.0 %) 0.4 Absolute Granulocytes (1.4 - 6.5 /CUMM) 6.2 Absolute Lymphocytes (1.2 - 3.4 /CUMM) 1.3 Absolute Monocytes (0.10 - 0.60 /CUMM) 0.7 H Absolute Eosinophils (0.0 - 0.7 /CUMM) 0.1 Absolute Basophils (0.0 - 0.2 /CUMM) 0 PUBS MCHC (33.0 - 37.0 G/DL) 32.1 L Urines Urine Color (YEL,AMB,STR) STRAW Urine Clarity (CLEAR) HAZY H Urine pH (5.0 - 8.0) 6.5 Ur Specific [place] (1.001 - 1.035) 1.010 Urine Protein (NEG,<30 MG/DL) NEG Urine Ketones (NEG) NEG Urine Nitrite (NEG) NEG Urine Bilirubin (NEG) NEG Urine Urobilinogen (0.1 - 1.0 EU/dl) 0.2 Ur Leukocyte Esterase (NEG) LARGE H Ur Microscopic SEDIMENT EXAMINED Urine RBC (0 - 5 /HPF) RARE Urine WBC (0 - 2 /HPF) 15-25 H Ur Epithelial Cells (NONE,FEW) MOD H Urine Bacteria (NEG/NONE) MOD H Urine Mucus (FEW,NONE) RARE Urine Hemoglobin (NEG) NEG Urine Glucose (N MG/DL) NEG Assessment/Plan Assessment/Plan [id number]-m w/ hx HTN , COPD, dementia, depression, Parkinson's disease, GERD, and deafness who presented to ED from his assisting living facility following a mechanical fall and who was found to be in atrial fibrillation w/ 2:1 block on his 12-lead ECG. The patient is extremely hard of hearing precluding our ability to communicate effectively. Recommendations: * Admit to telemetry, follow-up electrocardiograms, follow-up troponins. * To help control the ventricular response to his atrial flutter he has thus far received IV diltiazem 10 mg 3, had a diltiazem drip started at 5 mg/hour with his titrated up to 10 mg/hour approximately 30 minutes ago with the ventricular response rate still ~140 bpm. * Continue to titrate up the IV diltiazem drip to get the ventricular response rate in the 90-100 bpm range as his blood pressure allows. * If the ventricular response to his atrial fibrillation remains too rapid can add low-dose beta hui therapy as metoprolol 12.5 mg twice daily to start which can be titrated up. * Check with assisted-living facility to see if there are any baseline BUN/ creatinine values and for now gently hydrate, given elevated BUN/creatinine which could be on the basis of obstructive uropathy. * As we do not know how long he has been in the atrial flutter we would typically place on full anticoagulation with heparin and plan for transition to an N0AC for nonvalvular atrial flutter, however, he presently has hematuria which will require evaluation prior to initiating anticoagulation. * Urology consultation. * Check glycosylated hemoglobin A1c, free T4, TSH, & magnesium. * Schedule echocardiogram overall left ventricular function, valvular function, atrial size, etc. * Need to consider an acute pulmonary embolism in the differential diagnosis for new onset atrial flutter, however, he does not have history that would make it any higher than average risk for this * DVT prophylaxis. Further recommendations will follow, Thank you. Consult Acknowledgment - Thank you for your consult request.
[2017-03-21 20:40] LABS: ABSOLUTE BASOPHIL COUNT 0 /CUMM (0.0-0.2); ABSOLUTE EOSINOPHIL COUNT 0.1 /CUMM (0.0-0.7); ABSOLUTE GRANULOCYTE CT 7.4 /CUMM (1.4-6.5); ABSOLUTE LYMPH COUNT 1.4 /CUMM (1.2-3.4); ABSOLUTE MONOCYTE COUNT 0.9 /CUMM (0.10-0.60); BASOPHIL % 0.5 % (0.0-2.0); GRANULOCYTE % 75.4 % (42.2-75.2); HEMATOCRIT 28.6 % (42-52); MEAN CORPUSCULAR HGB 28.8 PG (27.0-31.0); MEAN CORPUSCULAR HGB CONC 31.6 G/DL (33.0-37.0); MEAN CORPUSCULAR VOLUME 91.2 FL (80.0-94.0); MEAN PLATELET VOLUME 8.3 FL (7.4-10.4); PLATELET COUNT 284 /CUMM (130-400); RBC DISTRIBUTION WIDTH 16.7 % (11.5-14.5); RED BLOOD CELL CT 3.14 /CUMM (4.70-6.10); WHITE BLOOD CELL COUNT 9.8 /CUMM (4.8-10.8)
[2017-03-21 23:00] VITALS: BP 100/62
[2017-03-22 02:45] VITALS: BP 108/76
[2017-03-22 06:43] VITALS: BP 122/74
[2017-03-22 08:38] LABS: ABSOLUTE BASOPHIL COUNT 0 /CUMM (0.0-0.2); ABSOLUTE EOSINOPHIL COUNT 0.1 /CUMM (0.0-0.7); ABSOLUTE LYMPH COUNT 1.2 /CUMM (1.2-3.4); ABSOLUTE MONOCYTE COUNT 0.7 /CUMM (0.10-0.60); BASOPHIL % 0.4 % (0.0-2.0); EOSINOPHIL % 1.4 % (0-5); GRANULOCYTE % 74.9 % (42.2-75.2); HEMATOCRIT 28.1 % (42-52); MEAN CORPUSCULAR HGB 28.6 PG (27.0-31.0); MEAN CORPUSCULAR HGB CONC 31.3 G/DL (33.0-37.0); MEAN CORPUSCULAR VOLUME 91.4 FL (80.0-94.0); MEAN PLATELET VOLUME 8.2 FL (7.4-10.4); PLATELET COUNT 319 /CUMM (130-400); RBC DISTRIBUTION WIDTH 16.6 % (11.5-14.5); RED BLOOD CELL CT 3.08 /CUMM (4.70-6.10)
--- NOTE | 2017-03-22 08:54 | PN- Housestaff ---
Rubén Okeefe MD,Ami 03/22/17 0854: Subjective Follow-up For: New onset atrial fibrillation/A flutter Hematuria Tele-Events Since Last Visit: aFLUTTER 125-140 Subjective: Patient visited today, very hard hearing, pleasantly demented gentelman, was lying in bed comfortably in no acute distress. Was combative overnight and to cart the full catheter, had hematuria later, bladder scan was done which revealed 6 50 mL of urine. No fever or chills, no shortness of breathing, no chest pain, no other events. Dr. Darden was consulted, three-way Burk cath was placed with CBI. Cytology of urine was sent. Heart rate was high, Cardizem drip was increased to max of 15 mL per hour, digoxin IV was started according to cardiology with plan to change to by mouth tomorrow. Review of Systems Constitutional: Reports: see HPI. Objective Last 24 Hrs of Vital Signs/I&O Vital Signs Date Time Temp Pulse Resp B/P B/P Pulse O2 O2 Flow FiO2 Mean Ox Delivery Rate 03/22 1852 116 126/62 03/22 1521 97.7 116 20 126/62 93 03/22 1258 144 98/60 03/22 1048 125 122/60 03/22 0800 Room Air 03/22 0643 96.4 140 20 122/74 93 Room Air 03/22 0245 108/76 03/21 2300 97.5 140 20 100/62 90 Room Air Intake & Output 03/22 1600 03/22 0800 03/22 0000 Intake Total 1075 695 655 Output Total 600 1400 Balance 1075 95 -745 Intake, IV 475 695 305 Intake, Oral 600 350 Output, Urine 600 1400 Patient 175 lb Weight Weight Bed scale Measurement Method Physical Exam General Appearance: Alert, Cooperative, No Acute Distress, no oriented Skin Temp/Moisture Exam: Warm/Dry Sepsis Skin Exam (color): Normal for Ethnicity HEENT: Atraumatic, EOMI, Mucous Membr. moist/pink Neck: No JVD Cardiovascular: Normal S1, Normal S2, Irreg irreg, tachicardic Lungs: Clear to Auscultation Abdomen: bladder distanded Current Medications: Current Medications Sig/Jairon Start time Last Medication Dose Route Stop Time Status Admin Acetaminophen 650 MG Q6P PRN 03/21 1245 AC PO Budesonide/ 2 PUF BID 03/21 2200 AC 03/22 Formoterol Fumarate INH 1011 Carbidopa/Levodopa 1 TAB TID 03/21 2200 AC 03/22 PO 1600 Digoxin 0.25 MG 1700 03/23 1700 AC PO 03/24 1701 Digoxin 0.25 MG ONCE ONE 03/22 2355 AC IV 03/22 2356 Digoxin 0.25 MG ONCE ONE 03/22 1800 DC 03/22 IV 03/22 1801 1852 Digoxin 0.5 MG ONCE ONE 03/22 1130 DC 03/22 IV 03/22 1131 1258 Diltiazem HCl 125 MG Q12H 03/21 1115 AC 03/22 Dextrose/Water 100 ML IV 1233 Dipyridamole/Aspirin 1 CAP BID 03/21 2200 CAN PO Finasteride 5 MG DAILY 03/22 1229 AC 03/22 PO 1623 Fluoxetine HCl 20 MG DAILY 03/22 1000 AC 03/22 PO 1010 Omeprazole 20 MG DAILY 03/22 1000 AC 03/22 PO 1010 Sodium Chloride 1,000 ML Q13H 03/21 1930 DC 03/21 IV 03/22 0829 1952 Last 24 Hrs of Lab/Benjie Results Last 24 Hrs of Labs/Mics: Laboratory Tests 03/22/17 0540: Anion Gap 13, Estimated GFR 54 L, BUN/Creatinine Ratio 23.1, Vitamin B12 > 1000 H, Folate > 20.0 H, CBC w Diff NO MAN DIFF REQ, RBC 3.08 L, MCV 91.4, MCH 28.6, RDW 16.6 H, MPV 8.2, Gran % 74.9, Lymphocytes % 14.9 L, Monocytes % 8.4, Eosinophils % 1.4, Basophils % 0.4, Absolute Granulocytes 6.0, Absolute Lymphocytes 1.2, Absolute Monocytes 0.7 H, Absolute Eosinophils 0.1, Absolute Basophils 0, PUBS MCHC 31.3 L Microbiology 03/22 1600 URINE ROUT: Urine Culture - RECD Assessment/Plan Assessment: Mr. Hull is a 72-year-old male with past medical history significant for hypertension, COPD, dementia, Parkinson disease, depression, GERD, who presented to ED from [facility] after a fall. On presentation, vital signs 97.7, pulse 137 regular, blood pressure 118/83, saturating 96% on room air Labs significant for WBC 8.4, H&H 10.4/32.5, platelet 341, sodium 147, potassium 4.5, chloride 104, bicarbonate 31, BUN/creatinine 29/1.4, glucose 105 As a protocol for any patient presented with history of fall, CT scan head, cervical spine, chest, abdomen and pelvis were obtained, it was negative for any intracranial acute pathology or cervical, thoracic and lumbar spine fracture. CT abdomen and pelvis revealed bladder outlet obstruction with markedly distended bladder extending well above the umbilicus and moderately severe hydroureteronephrosis with prostatomegaly [address] chest significant for Left lower lobe pulmonary nodules measuring up to 5 mm in size. No previous images to compare. Problem list #Fall #Anemia acute versus chronic #New onset atrial fibrillation/A flutter #Urinary outlet obstruction with evidence of prostatomegaly #DANG #Bilateral lower extremity edema Plan Continue telemetry floor #Fall Patient has history of fall, unclear if he lost his consciousness or not. Was found alert oriented on the floor, hit his head, CT didn't show any intracranial changes. -Follow orthostatic measurement -Prolactin is mildly elevated 19 doesn't go with seizure attack -EKG revealed signs of a flutter/A. fib fibrillation #Anemia acute versus chronic Patient presented with hemoglobin 10.4/32.5, no previous baseline. After draining 2500 mL of clear urine by Burk catheter, patient started to have syeda hematuria. No history of previous hematuria per patient/son/nurse. Given significant hematuria. CBC repeated today: 8.8 folic acid, vitamin B12 not low -2 large-bore peripheral IV lines -Type and crossmatch - follow and keep>8 #New onset atrial fibrillation/A flutter -EKG was reviewed by conche operator Dr. Abarca -Patient received 3 boluses of 10 mg IV Cardizem however continued to be tachycardic, patient was started on Cardizem drip - continue cardizem drip 15ml/h -Hold off anticoagulation for syeda hematuria -Admission troponin is 0.02, trend troponin and EKG - Digoxin IV started today - monitor VS - Digoxin PO from tomorrow #Urinary outlet obstruction with evidence of prostatomegaly -Burk catheter placement in ED yielded 2500 mL of clear yellow urine, patient started to have syeda hematuremia afterwards -Abdominal x-ray was obtained to confirm the position of Burk catheter however the radiologist couldn't find Burk catheter in this image. Contact [place] reading room and spoke with the radiologist Dr. PULLIAM who recommended abdominal ultrasound -PSA 8.51. No report for BPH or any prostate abnormality per son -UA negative for infection -urine cytology sent - cath placed by URO - Continue CBI considering hematuria - follow uro #DANG Creatinine decreased today to 1.3 -Repeat BMP in a.m. -Hold off IV fluid for possible CHF -No available baseline however will obtain records from shelter #Bilateral lower extremity edema Possible CHF, no report for LE edema from [facility] Echo: Small left ventricular cavity. Mild concentric left ventricular hypertrophy. No obvious regional wall motion abnormalities. Normal left ventricular ejection fraction visually estimated at > 65%. Normal right ventricular size and function. Normal right atrial size. Mild left atrial dilatation. Trace tricuspid regurgitation. Right ventricular systolic pressure estimated at 35 mmHg. Pro BNP: 3210 -follow Cardiology consultation code full DVT prophlaxes ALPS for syeda hematuria Diet NPO for abdominal images Problem List: 1. Hematuria 2. New onset a-fib 3. Fall 4. Bladder outflow obstruction Pain Ratin Pain Location: None at the time of inerview Pain Goal: Pain 4 or less Pain Plan: Current plan Tomorrow's Labs & Rationales: CBc CHANDLERP Froy Schreiber 03/22/17 1312: Attending MD Review Statement Attending Statement Attending MD Statement: examined this patient, discuss w/resident/PA/COMPANY LAUNDRY WORKER, agreed w/resident/PA/COMPANY LAUNDRY WORKER, discussed with family, reviewed EMR data (avail), discussed with nursing, discussed with case mgmt, reviewed images, amended to note Attending Assessment/Plan: Patient resident of facility pmh of parkinson disease, 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 Patient seen/examined bedside. Patient is limited historian. Patient is on CBI now. He is tolerating his breakfast. Labs noted. Continue telemetry monitoring. Negative serial cardiac enzymes and obtain serial cbc monitoring. ECHO as per cardiology, Cardiology and urology consulted. Transfuse PRBC if hb<8. Patient started with cardizem for rate control, digoxin added, uptitrate cardizem if needed, a/c as per cardiology and urology on hold. Monitor creatinine and hemodynamics closely. gi/dvt prophyalxis full code.
[2017-03-22 10:48] VITALS: BP 122/60
--- NOTE | 2017-03-22 11:39 | Cons- Urology ---
General Information and HPI Consulting Request Date of Consult: 03/22/17 Requested By: Candie REID,Froy Reason for Consult: GROSS HEMATURIA; URINARY RETENTION Source of Information: family, old records Exam Limitations: unable to give history, dementia History of Present Illness: Mr. Hull is a 72-year-old male with past medical history significant for hypertension, COPD, dementia, Parkinson disease, depression, GERD, who presented to ED from assisting [facility] after a fall. Patient is unable to give history because of underlying dementia and hard of hearing. History was obtained from the nurse at the assisting living facility and patient's son. Patient was trying get his newspaper to read it around 6 AM this morning and he fell down, called for help and nurse came to his apartment and found him alert/ oriented on the floor, hit his head, no report for convulsion or urine/stool incontinence. Patient had a laceration on the right temporal side; PT HAD MCCALL AND REMOVED IT WHILE CONFUSED LAST NIGHT RESULTING IN URETHRAL TRAUMA. Allergies/Medications Allergies: Coded Allergies: No Known Allergies (03/21/17) Home Med List: Budesonide/Formoterol Fumarate (Symbicort 160-4.5 Mcg Inhaler) 160 MCG-4.5 MCG/ ACTUATION HFA.AER.AD 2 PUF INH BID BREATHING (Reported) Carbidopa/Levodopa (Carbidopa-Levodopa 10-100 Tab) 10 MG-100 MG TABLET 1 TAB PO TID PARKINSONS (Reported) Dipyridamole W/ Aspirin (Aggrenox 25 MG-200 MG Capsule) 25 MG-200 MG CPMP.12HR 1 CAP PO BID HEART HEALTH (Reported) Fluoxetine HCl 20 MG CAPSULE 1 CAP PO DAILY DEPRESSION (Reported) Folic Acid/Vit Bcomp,C (Jennifer-Lalit Tablet) 0.8 MG TABLET 1 TAB PO DAILY VITAMIN (Reported) Metoprolol Succinate 25 MG TAB 1 TAB PO DAILY HTN (Reported) Omeprazole 20 MG CAPSULE.DR 1 CAP PO DAILY GERD (Reported) Current Medications: Current Medications Sig/Jairon Start time Last Medication Dose Route Stop Time Status Admin Acetaminophen 650 MG Q6P PRN 03/21 1245 AC PO Budesonide/ 2 PUF BID 03/21 2200 AC 03/22 Formoterol Fumarate INH 1011 Carbidopa/Levodopa 1 TAB TID 03/21 2199 AC 03/22 PO 1011 Digoxin 0.25 MG 1700 03/23 1700 AC PO 03/24 1701 Digoxin 0.25 MG ONCE ONE 03/22 2355 AC IV 03/22 2356 Digoxin 0.25 MG ONCE ONE 03/22 1800 AC IV 03/22 1801 Digoxin 0.5 MG ONCE ONE 03/22 1130 DC IV 03/22 1131 Diltiazem HCl 0 .STK-MED ONE 03/21 1240 DC .ROUTE Diltiazem HCl 125 MG Q12H 03/21 1115 AC 03/22 Dextrose/Water 100 ML IV 0042 Dipyridamole/Aspirin 1 CAP BID 03/21 2200 CAN PO Fluoxetine HCl 20 MG DAILY 03/22 1000 AC 03/22 PO 1010 Omeprazole 20 MG DAILY 03/22 1000 AC 03/22 PO 1010 Sodium Chloride 1,000 ML Q13H 03/21 1930 DC 03/21 IV 03/22 0829 195 Past History Medical History Blood Transfusion Hx: No Neurological: dementia, Parkinson's disease, TIA EENT: hearing loss Cardiovascular: hypertension Respiratory: COPD Gastrointestinal: NONE Hepatic: NONE Renal: NONE Musculoskeletal: NONE Psychiatric: NONE Endocrine: NONE Blood Disorders: NONE Cancer(s): NONE Surgical History Pertinent Surgical History: hernia repair-umbilical Psychosocial History Where Do You Live? Assisted Living Who Do You Live With? self Services at Home: Home Health Aide Primary Language: Martiniquais Smoking Status: Former Smoker ETOH Use: alchol abuse Employment History Retired? yes Review of Systems Review of Systems Constitutional: Reports: see HPI. EENTM: Reports: see HPI. Cardiovascular: Reports: see HPI. Respiratory: Reports: see HPI. GI: Reports: see HPI. Genitourinary: Reports: see HPI. Exam & Diagnostic Data Vital Signs and I&O Vital Signs Date Time Temp Pulse Resp B/P B/P Pulse O2 O2 Flow FiO2 Mean Ox Delivery Rate 03/22 1048 125 122/60 03/22 0800 Room Air 03/22 0643 96.4 140 20 122/74 93 Room Air 03/22 0245 108/76 03/21 2300 97.5 140 20 100/62 90 Room Air 03/21 1850 Room Air Room Air 03/21 1717 98.8 141 23 110/70 95 03/21 1702 Room Air 03/21 1552 97.4 142 18 118/78 96 Room Air 03/21 1455 96.8 140 18 126/74 97 Room Air 03/21 1333 97.2 139 20 127/82 96 Room Air 03/21 1244 97.6 138 18 144/80 03/21 1155 98.0 138 18 128/74 96 Room Air Intake & Output 03/22 1600 03/22 0800 03/22 0000 03/21 1600 03/21 0800 03/21 0000 Intake Total 695 655 Output Total 600 1400 3250 Balance 95 -745 -3250 Intake, IV 695 305 Intake, Oral 350 Output, Urine 600 1400 3250 Patient 175 lb 175 lb Weight Weight Bed scale Measurement Method Physical Exam General Appearance: well developed/nourished, no apparent distress Head: normal appearance, LAC. Eyes: Bilateral: normal appearance. Neck: normal inspection Respiratory: normal breath sounds Cardiovascular: regular rate/rhythm Gastrointestinal: normal bowel sounds Back: no vertebral tenderness Extremities: normal inspection Reproductive: Normal male genitalia Last 24 Hours of Labs: Laboratory Tests 03/22 03/21 0540 1953 Chemistry Sodium (137 - 145 mmol/L) 148 H Potassium (3.5 - 5.1 mmol/L) 4.7 Chloride (98 - 107 mmol/L) 105 Carbon Dioxide (22 - 30 mmol/L) 30 Anion Gap (5 - 16) 13 BUN (9 - 20 mg/dL) 30 H Creatinine (0.7 - 1.2 mg/dL) 1.3 H Estimated GFR (>60 ml/min) 54 L BUN/Creatinine Ratio (7 - 25 %) 23.1 Vitamin B12 (239 - 931 pg/mL) > 1000 H Folate (2.76 - 20.0 ng/mL) > 20.0 H Hematology CBC w Diff NO MAN DIFF REQ NO MAN DIFF REQ WBC (4.8 - 10.8 /CUMM) 8.0 9.8 RBC (4.70 - 6.10 /CUMM) 3.08 L 3.14 L Hgb (14.0 - 18.0 G/DL) 8.8 L 9.1 L Hct (42 - 52 %) 28.1 L 28.6 L MCV (80.0 - 94.0 FL) 91.4 91.2 MCH (27.0 - 31.0 PG) 28.6 28.8 RDW (11.5 - 14.5 %) 16.6 H 16.7 H Plt Count (130 - 400 /CUMM) 319 284 MPV (7.4 - 10.4 FL) 8.2 8.3 Gran % (42.2 - 75.2 %) 74.9 75.4 H Lymphocytes % (20.5 - 51.1 %) 14.9 L 14.3 L Monocytes % (1.7 - 9.3 %) 8.4 8.8 Eosinophils % (0 - 5 %) 1.4 1.0 Basophils % (0.0 - 2.0 %) 0.4 0.5 Absolute Granulocytes (1.4 - 6.5 /CUMM) 6.0 7.4 H Absolute Lymphocytes (1.2 - 3.4 /CUMM) 1.2 1.4 Absolute Monocytes (0.10 - 0.60 /CUMM) 0.7 H 0.9 H Absolute Eosinophils (0.0 - 0.7 /CUMM) 0.1 0.1 Absolute Basophils (0.0 - 0.2 /CUMM) 0 0 PUBS MCHC (33.0 - 37.0 G/DL) 31.3 L 31.6 L 03/21 03/21 1410 1242 Chemistry Troponin I (<0.11 ng/ml) < 0.01 Coagulation PT (9.4 - 12.5 SEC) 11.3 INR (0.90 - 1.17) 1.08 APTT (25 - 37 SEC) 35 Imaging Results: PATIENT: CHYNA HULL JR PRESENT AGE: 72 PATIENT ACCOUNT NO: [id number] : 43 LOCATION: [facility] ORDERING PHYSICIAN: Derrell Adam MD SERVICE DATE: 03/21/17 EXAM TYPE: US - US-LIMITED ABDOMEN EXAMINATION: US ABDOMEN LIMITED CLINICAL INFORMATION: Confirm Mccall's catheter.. COMPARISON: None TECHNIQUE: Real-time imaging of the right upper quadrant abdominal viscera. FINDINGS: Mildly distended urinary bladder with a Mccall's inflated catheter seen in the bladder. There is a large hyperechoic area seen in the dependent portion bladder, question mass versus debris. It is unlikely to represent an enlarged prostate. IMPRESSION: A Mccall's catheter lies within the urinary bladder. However there is a soft tissue mass seen along the dependent portion of bladder suspicious for intrinsic lesion. Differential diagnosis to consider is intrinsic debris. Recommend cystoscopy. Assessment/Plan Assessment/Plan PT WITH TRAUMATIC MCCALL REMOVAL/22FR INSERTED AND CBI WITH NS. FOR CYSTOSCOPY BASED ON US FINDINGS. SEND URINE CYTOLOGY TODAY. Copies To: Faith REID,Shawn Amador; Adelso REID,Hua Consult Acknowledgment - Thank you for your consult request. Attending MD Review Statement Attending Statement Attending MD Statement: examined this patient, discuss w/resident/PA/HR SPECIALIST Attending Assessment/Plan: GROSS HEMATURIA AND RETENTION DUE TO TRAUMATIC MCCALL REMOVAL/CBI STARTED AFTER ASPIRATING LARGE AMOUNT OF CLOT.
[2017-03-22 15:21] VITALS: BP 126/62
--- NOTE | 2017-03-22 16:09 | ECHOCARDIOGRAM REPORT ---
CHYNA MAC Age: 72 : 1945 Gender: M Exam Date: 03/22/2017 13:22 Exam Location: [address] Ht (in): 69 Wt (lb): 175 BSA: 1.98 BP: 122 / 74 Ordering Physician: Derrell Adam MD Referring Physician: Harrison Abarca MD Technologist: Krystina Glover [facility] Room Number: [id number] Indications: AFIB/FLUTTER Rhythm: Atrial flutter Technical Quality: Technically difficult study FINDINGS Left Ventricle Small left ventricular cavity. Mild concentric left ventricular hypertrophy. No obvious regional wall motion abnormalities. Normal left ventricular ejection fraction visually estimated at >65%. Right Ventricle Normal right ventricular size and function. Right Atrium Normal right atrial size. Left Atrium Mild left atrial dilatation. Mitral Valve Mild mitral annular calcification. Mitral valve thickened. No mitral regurgitation. Aortic Valve Aortic valve not well visualized. Mild aortic sclerosis. No aortic valve stenosis or regurgitation. Tricuspid Valve Structurally normal tricuspid valve. Trace tricuspid regurgitation. Right ventricular systolic pressure estimated at 35 mmHg. Pulmonic Valve Pulmonic valve not well visualized. No pulmonic regurgitation. Pericardium No pericardial effusion. Great Vessels Normal size aortic root. CONCLUSIONS Small left ventricular cavity. Mild concentric left ventricular hypertrophy. No obvious regional wall motion abnormalities. Normal left ventricular ejection fraction visually estimated at > 65%. Normal right ventricular size and function. Normal right atrial size. Mild left atrial dilatation. Trace tricuspid regurgitation. Right ventricular systolic pressure estimated at 35 mmHg. Harrison Abarca M.D. (Electronically Signed) Final Date: 22 March 2017 16:08 MEASUREMENTS (Male / Female) Normal Values 2D ECHO LV Diastolic Diameter PLAX 3.2 cm 4.2 - 5.9 / 3.9 - 5.3 cm LV Systolic Diameter PLAX 1.7 cm 2.1 - 4.0 cm LV Fractional Shortening PLAX 46.9 % 25 - 46 % LV Ejection Fraction 2D Teich 79.5 % IVS Diastolic Thickness 1.2 cm LVPW Diastolic Thickness 1.2 cm LV Relative Wall Thickness 0.8 RV Internal Dim ED PLAX 2.5 cm 1.9 - 3.8 cm LVOT Diameter 1.8 cm Aortic Root Diameter 3.2 cm LA Systolic Diameter LX 4.4 cm 3.0 - 4.0 / 2.7 - 3.8 cm LA Volume 55.0 cm 18 - 58 / 22 - 52 cm Ascending Aorta Diameter 3.3 cm DOPPLER AV Peak Velocity 122.0 cm/s AV Peak Gradient 6.0 mmHg AV Mean Velocity 95.7 cm/s AV Mean Gradient 4.0 mmHg AV Velocity Time Integral 23.3 cm LVOT Peak Velocity 109.0 cm/s LVOT Peak Gradient 4.8 mmHg LVOT Mean Velocity 81.3 cm/s LVOT Mean Gradient 3.0 mmHg LVOT Velocity Time Integral 20.9 cm LVOT Stroke Volume 53.2 cm AV Area Cont Eq vti 2.3 cm AV Area Cont Eq pk 2.3 cm MV Peak Velocity 134.0 cm/s MV Peak Gradient 7.2 mmHg MV Mean Velocity 72.6 cm/s MV Mean Gradient 3.0 mmHg Mitral E Point Velocity 131.0 cm/s MV PHT Velocity 137.0 cm/s MV Deceleration Gladwin 601.0 cm/s MV Pressure Half Time 68.4 ms MV Area PHT 3.2 cm MV Deceleration Time 106.0 ms TR Peak Velocity 273.0 cm/s TR Peak Gradient 29.8 mmHg Right Atrial Pressure 5.0 mmHg Pulmonary Artery Systolic Pressu 34.8 mmHg Right Ventricular Systolic Press 34.8 mmHg PV Peak Velocity 78.6 cm/s PV Peak Gradient 2.5 mmHg PV Mean Velocity 56.5 cm/s PV Mean Gradient 1.0 mmHg PV Velocity Time Integral 12.0 cm LV E' Lateral Velocity 14.2 cm/s Mitral E to LV E' Lateral Ratio 9.2 LV E' Septal Velocity 9.1 cm/s Mitral E to LV E' Septal Ratio 14.4
[2017-03-22 21:37] VITALS: BP 120/50
[2017-03-23 07:14] VITALS: BP 128/64
--- NOTE | 2017-03-23 07:41 | PN- Housestaff ---
See Addendum Subjective Follow-up For: Blaadder mass, fall, afib with RVR Tele-Events Since Last Visit: Afib, 140s Subjective: No overnight events. Patient unable to proi\vide history. Review of Systems Constitutional: Reports: no symptoms. EENTM: Reports: no symptoms. Cardiovascular: Reports: no symptoms. Respiratory: Reports: no symptoms. Gastrointestinal: Reports: no symptoms. Genitourinary: Reports: no symptoms. Musculoskeletal: Reports: no symptoms. Skin: Reports: no symptoms. Neurological/Psychological: Reports: no symptoms. Hematologic/Endocrine: Reports: no symptoms. Immunologic/Allergic: Reports: no symptoms. Objective Last 24 Hrs of Vital Signs/I&O Vital Signs Date Time Temp Pulse Resp B/P B/P Pulse O2 O2 Flow FiO2 Mean Ox Delivery Rate 03/23 0714 97.7 144 20 128/64 95 Room Air 03/23 0030 97.4 146 18 120/50 03/22 2137 97.2 145 20 120/50 91 03/22 1852 116 126/62 03/22 1521 97.7 116 20 126/62 93 03/22 1258 144 98/60 03/22 1048 125 122/60 03/22 0800 Room Air Intake & Output 03/23 0800 03/23 0000 03/22 1600 Intake Total 1545 4075 Output Total 3000 4150 Balance -1455 -75 Intake, IV 45 475 Intake, Oral 600 Intake, Other 1500 3000 Output, Urine 3000 4150 Physical Exam General Appearance: Alert, Cooperative, No Acute Distress Cardiovascular: irregular, tachy Lungs: Clear to Auscultation Abdomen: guarding Neurological: Normal Speech Extremities: R leg swollen > L Current Medications: Current Medications Sig/Jairon Start time Last Medication Dose Route Stop Time Status Admin Acetaminophen 650 MG Q6P PRN 03/21 1245 AC PO Budesonide/ 2 PUF BID 03/21 2200 AC 03/22 Formoterol Fumarate INH 2219 Carbidopa/Levodopa 1 TAB TID 03/21 2200 AC 03/22 PO 2219 Digoxin 0.25 MG 1700 03/23 1700 AC PO 03/24 1701 Digoxin 0.25 MG ONCE ONE 03/22 2355 DC 03/23 IV 03/22 2356 0030 Digoxin 0.25 MG ONCE ONE 03/22 1800 DC 03/22 IV 03/22 1801 1852 Digoxin 0.5 MG ONCE ONE 03/22 1130 DC 03/22 IV 03/22 1131 1258 Diltiazem HCl 125 MG Q12H 03/21 1115 AC 03/23 Dextrose/Water 100 ML IV 0021 Finasteride 5 MG DAILY 03/22 1229 AC 03/22 PO 1623 Fluoxetine HCl 20 MG DAILY 03/22 1000 AC 03/22 PO 1010 Omeprazole 20 MG DAILY 03/22 1000 AC 03/22 PO 1010 Sodium Chloride 1,000 ML Q13H 03/21 1930 DC 03/21 IV 03/22 0829 1952 Last 24 Hrs of Lab/Benjie Results Last 24 Hrs of Labs/Mics: Microbiology 03/22 1600 URINE ROUT: Urine Culture - RECD Assessment/Plan Assessment: Mr. Hull is a 72-year-old male with past medical history significant for hypertension, COPD, dementia, Parkinson disease, depression, GERD, who presented to ED from [facility] after a fall. Problem list 1. Fall 2. New onset atrial fibrillation/A flutter 3. Bladder mass 4. DANG 5. Bilateral lower extremity edema 6. Acute blood loss anemia #New onset atrial fibrillation/A flutter: Patient received 3 boluses of 10 mg IV diltiazem in the ED and was still tachycardic. He was started on a diltiazem drip. He is currently on 15 mL per hour. Yesterday, digoxin was started as well. EKG and troponins 3 negative. Rates overnight have been in the 140s. We'll talk to cardiology about starting something like metoprolol -Hold off anticoagulation for syeda hematuria -Continue diltiazem drip -Continue digoxin -Appreciate cardiology recommendations #Suspicious bladder mass: Abdominal ultrasound showed a suspicious bladder mass that may be causing his urinary outlet obstruction and subsequent obstructive kidney injury. Burk catheter was placed in the ED and yielded 2.5 mL of clear yellow urine afterwards patient had syeda hematuria. He has been hemodynamically stable. PSA is also elevated at 8.51. Urology was consulted and plans to do cystoscopy today. He does have a leukocytosis today with white blood cells in the urine. -Continuous bladder irrigation -Appreciate urology recommendations -Cystoscopy tomorrow -Continue finasteride -Start ceftriaxone for UTI #Fall: Patient has history of fall, unclear if he lost his consciousness or not. Was found alert oriented on the floor, hit his head, CT didn't show any intracranial changes. Orthostatic vital was negative though they did not do a standing blood pressure. -Continue to monitor #Acute blood loss anemia: Patient presented with hemoglobin 10.4/32.5, no previous baseline. After draining 2500 mL of clear urine by Burk catheter, patient started to have syeda hematuria. No history of previous hematuria per patient/son/nurse. Hemoglobin has been downtrending but he has been hemodynamically stable. -2 large-bore peripheral IV lines -Type and crossmatch -Hemoglobin goal greater than 8 #Bilateral lower extremity edema: Likely chronic in nature. TTE revealed EF greater than 65% and right ventricular systolic pressure 35 mmHg. -Continue to monitor #Chronic medical problems: -Continue home omeprazole, fluoxetine, carbidopa/levodopa, budesonide/formoterol DVT prophylaxis with Alps Nothing by mouth Full code Problem List: 1. Bladder outflow obstruction 2. New onset a-fib Pain Ratin Pain Location: no Pain Goal: Remain pain free Pain Plan: see a/p Tomorrow's Labs & Rationales: cbc, bep - follow uro #DANG Creatinine decreased today to 1.3 -Repeat BMP in a.m. -Hold off IV fluid for possible CHF -No available baseline however will obtain records from longterm #Bilateral lower extremity edema Possible CHF, no report for LE edema from [facility] Echo: Small left ventricular cavity. Mild concentric left ventricular hypertrophy. No obvious regional wall motion abnormalities. Normal left ventricular ejection fraction visually estimated at > 65%. Normal right ventricular size and function. Normal right atrial size. Mild left atrial dilatation. Trace tricuspid regurgitation. Right ventricular systolic pressure estimated at 35 mmHg. Pro BNP: 3210 -follow Cardiology consultation code full DVT prophlaxes ALPS for syeda hematuria Diet NPO for abdominal images
--- NOTE | 2017-03-23 08:13 | PN- Urology ---
See Addendum Surgical Brief Attending Note Brief Attending Note: pt overall without complaints. vss afebrile. pt with blood loss anemia contributed by gross hematuria with clots. cbi light pink this am. plan: NPO at Midnight tonight for cystoscopy and possible prostate biopsy in am. continue cbi today.
[2017-03-23 08:18] LABS: ABSOLUTE BASOPHIL COUNT 0 /CUMM (0.0-0.2); ABSOLUTE EOSINOPHIL COUNT 0 /CUMM (0.0-0.7); ABSOLUTE GRANULOCYTE CT 15.6 /CUMM (1.4-6.5); ABSOLUTE LYMPH COUNT 0.9 /CUMM (1.2-3.4); ABSOLUTE MONOCYTE COUNT 1.3 /CUMM (0.10-0.60); BASOPHIL % 0 % (0.0-2.0); EOSINOPHIL % 0.1 % (0-5); GRANULOCYTE % 87.5 % (42.2-75.2); HEMATOCRIT 25.5 % (42-52); MEAN CORPUSCULAR HGB 29.2 PG (27.0-31.0); MEAN CORPUSCULAR VOLUME 91.2 FL (80.0-94.0); PLATELET COUNT 289 /CUMM (130-400); RBC DISTRIBUTION WIDTH 16.9 % (11.5-14.5)
[2017-03-23 09:00] LABS: WHITE BLOOD CELL COUNT 17.8 /CUMM (4.8-10.8)
[2017-03-23 14:43] VITALS: BP 126/84
--- NOTE | 2017-03-23 14:46 | Discharge Summary ---
Visit Information Visit Dates Admission Date: 03/21/17 Discharge Date: 03/31/2017 Hospital Course Course Attending Physician: Kory REID,Latoya Tatum Primary Care Physician: Gris REID,Afsaneh Rodrigez Hospital Course: Mr. Hull is a 72-year-old male with past medical history significant for hypertension, COPD, dementia, Parkinson disease, depression, GERD, who presented to ED from [facility] after a fall. On presentation, vital signs 97.7, pulse 137 regular, blood pressure 118/83, saturating 96% on room air Labs significant for WBC 8.4, H&H 10.4/32.5, platelet 341, sodium 147, potassium 4.5, chloride 104, bicarbonate 31, BUN/creatinine 29/1.4, glucose 105 As a protocol for any patient presented with history of fall, CT scan head, cervical spine, chest, abdomen and pelvis were obtained, it was negative for any intracranial acute pathology or cervical, thoracic and lumbar spine fracture. CT abdomen and pelvis revealed bladder outlet obstruction with markedly distended bladder extending well above the umbilicus with prostatomegaly [address] chest significant for Left lower lobe pulmonary nodules measuring up to 5 mm in size. No previous images to compare. He was admitted to the telemtry floor and treated for these medical condtions: #Fall with new onset flutter ACS is ruled out. Patient was initially put on IV Cardizem drip and by mouth digoxin which eventually changed to by mouth Cardizem + metoprolol rate control. After patient was cleared by urology for anticoagulation is started the patient on eliquis twice a day. #Anemia (acute due to hematuria) with #Urinary outlet obstruction with evidence of prostatomegaly Patient presented with hemoglobin 10.4/32.5, no previous baseline. After draining 2500 mL of clear urine by Wu catheter, patient started to have syeda hematuria. most likely due to trauma. Hg dropped to 7.9 and patient had one episode of RBC transfusion which increase the hemoglobin to 9.8. Urology consultation performed the cystoscopy .PSA 8.51. We started the patient on finasteride as well. patient should follow up with 7 days after discharge for re-evaluation of the wu cath. #DANG Creatinine is mildly elevated 1.4 which was resolved with IV hydration Allergies: Coded Allergies: No Known Allergies (03/21/17) Significant Procedures: PATIENT: CHYNA HULL JR PRESENT AGE: 72 PATIENT ACCOUNT NO: [id number] : 43 LOCATION: [facility] ORDERING PHYSICIAN: Derrell Adam MD SERVICE DATE: 03/21/17- EXAM TYPE: CARD - ECHOCARDIOGRAM CHYNA HULL Age: 72 : 1945 Gender: M Exam Date: 03/22/2017 13:22 Exam Location: [address] [place] [address] Ht (in): 69 Wt (lb): 175 BSA: 1.98 BP: 122 / 74 Ordering Physician: Derrell Adam MD Referring Physician: Harrison Abarca MD Technologist: Krystina Glover [facility] Room Number: 188 Indications: AFIB/FLUTTER Rhythm: Atrial flutter Technical Quality: Technically difficult study FINDINGS Left Ventricle Small left ventricular cavity. Mild concentric left ventricular hypertrophy. No obvious regional wall motion abnormalities. Normal left ventricular ejection fraction visually estimated at >65%. Right Ventricle Normal right ventricular size and function. Right Atrium Normal right atrial size. Left Atrium Mild left atrial dilatation. Mitral Valve Mild mitral annular calcification. Mitral valve thickened. No mitral regurgitation. Aortic Valve Aortic valve not well visualized. Mild aortic sclerosis. No aortic valve stenosis or regurgitation. Tricuspid Valve Structurally normal tricuspid valve. Trace tricuspid regurgitation. Right ventricular systolic pressure estimated at 35 mmHg. Pulmonic Valve Pulmonic valve not well visualized. No pulmonic regurgitation. Pericardium No pericardial effusion. Great Vessels Normal size aortic root. CONCLUSIONS Small left ventricular cavity. Mild concentric left ventricular hypertrophy. No obvious regional wall motion abnormalities. Normal left ventricular ejection fraction visually estimated at > 65%. Normal right ventricular size and function. Normal right atrial size. Mild left atrial dilatation. Trace tricuspid regurgitation. Right ventricular systolic pressure estimated at 35 mmHg. Harrison Abarca M.D. (Electronically Signed) Final Date: 22 March 2017 16:08 MEASUREMENTS (Male / Female) Normal Values 2D ECHO LV Diastolic Diameter PLAX 3.2 cm 4.2 - 5.9 / 3.9 - 5.3 cm LV Systolic Diameter PLAX 1.7 cm 2.1 - 4.0 cm LV Fractional Shortening PLAX 46.9 % 25 - 46 % LV Ejection Fraction 2D Teich 79.5 % IVS Diastolic Thickness 1.2 cm LVPW Diastolic Thickness 1.2 cm LV Relative Wall Thickness 0.8 RV Internal Dim ED PLAX 2.5 cm 1.9 - 3.8 cm LVOT Diameter 1.8 cm Aortic Root Diameter 3.2 cm LA Systolic Diameter LX 4.4 cm 3.0 - 4.0 / 2.7 - 3.8 cm LA Volume 55.0 cm 18 - 58 / 22 - 52 cm Ascending Aorta Diameter 3.3 cm DOPPLER AV Peak Velocity 122.0 cm/s AV Peak Gradient 6.0 mmHg AV Mean Velocity 95.7 cm/s AV Mean Gradient 4.0 mmHg AV Velocity Time Integral 23.3 cm LVOT Peak Velocity 109.0 cm/s LVOT Peak Gradient 4.8 mmHg LVOT Mean Velocity 81.3 cm/s LVOT Mean Gradient 3.0 mmHg LVOT Velocity Time Integral 20.9 cm LVOT Stroke Volume 53.2 cm AV Area Cont Eq vti 2.3 cm AV Area Cont Eq pk 2.3 cm MV Peak Velocity 134.0 cm/s MV Peak Gradient 7.2 mmHg MV Mean Velocity 72.6 cm/s MV Mean Gradient 3.0 mmHg Mitral E Point Velocity 131.0 cm/s MV PHT Velocity 137.0 cm/s MV Deceleration Ada 601.0 cm/s MV Pressure Half Time 68.4 ms MV Area PHT 3.2 cm MV Deceleration Time 106.0 ms TR Peak Velocity 273.0 cm/s TR Peak Gradient 29.8 mmHg Right Atrial Pressure 5.0 mmHg Pulmonary Artery Systolic Pressu 34.8 mmHg Right Ventricular Systolic Press 34.8 mmHg PV Peak Velocity 78.6 cm/s PV Peak Gradient 2.5 mmHg PV Mean Velocity 56.5 cm/s PV Mean Gradient 1.0 mmHg PV Velocity Time Integral 12.0 cm LV E' Lateral Velocity 14.2 cm/s Mitral E to LV E' Lateral Ratio 9.2 LV E' Septal Velocity 9.1 cm/s Mitral E to LV E' Septal Ratio 14.4 DICTATED BY: Harrison Abarca MD DATE/TIME DICTATED:03/22/171608 CHARGING CAR OPERATOR:MARISABEL DATE/TIME TRANSCRIBED:03/22/171608 CONFIDENTIAL, DO NOT COPY WITHOUT APPROPRIATE AUTHORIZATION. <Electronically signed in Other Vendor System> SIGNED BY: Harrison Abarca MD 03/22/171608 ======= PATIENT: CHYNA HULL JR PRESENT AGE: 72 PATIENT ACCOUNT NO: [id number] : 43 LOCATION: [facility] ORDERING PHYSICIAN: Anders Varma MD SERVICE DATE: 03/21/17 EXAM TYPE: CAT - CT ABD & PELVIS W/O IV CONTRAS; CT CHEST WO IV CONTRAST EXAMINATION: CT CHEST, ABDOMEN AND PELVIS WITHOUT CONTRAST CLINICAL INFORMATION: Trauma. COMPARISON: No pertinent prior studies are available for comparison. TECHNIQUE: Multidetector volumetric imaging was performed from the thoracic inlet through the pubic symphysis following the administration of: Oral contrast: None Intravenous contrast: None Sagittal and coronal reformatted images were obtained on the technologist's workstation. TOTAL EXAM DLP: 386.61 mGy-cm FINDINGS: CHEST: LUNG: A left lower lobe pulmonary nodule measures 0.5 cm (image 276, series 5). Several additional juxtapleural pulmonary nodules measure 0.2 cm (image 290) and 0.3 cm (image 313). No evidence of pulmonary consolidation/contusion. No pneumothorax. PLEURA: No pleural effusion or pneumothorax. MEDIASTINUM: Calcification is present in the abdominal aorta, mitral annulus and extensive coronary artery calcification is present. VASCULAR: Evaluation for vascular injury is limited without intravenous contrast. No visible hematoma or aneurysm is seen. CHEST WALL/AXILLA: No axillary or internal mammary lymphadenopathy. ABDOMEN/PELVIS: LIVER, GALLBLADDER, AND BILIARY TREE: The liver is normal in size, shape, and attenuation. No focal hepatic lesion or biliary ductal dilatation is present. Evaluation for liver injury is limited without intravenous contrast. The gallbladder appears to have a thickened wall but is not well evaluated on this study. No gallbladder calcifications are seen. PANCREAS: Normal; no mass or surrounding fluid. SPLEEN: Normal size. No focal lesion. Evaluation for splenic injury is limited without intravenous contrast. ADRENAL GLANDS: Normal; no mass. KIDNEYS AND URETERS: The bilateral kidneys show moderately severe hydroureteronephrosis. GASTROINTESTINAL TRACT: Stomach and small bowel nondilated. No colonic wall thickening or pericolonic inflammatory changes. No pneumoperitoneum or extraluminal gas is seen. ABDOMINAL WALL: No significant hernia is appreciated. LYMPHOVASCULAR STRUCTURES: No evidence of lymphadenopathy. There is moderate atherosclerotic calcification in the abdominal aorta and iliac arteries and the celiac and superior mesenteric and inferior mesenteric arteries. Evaluation for vascular injury is limited without intravenous contrast. No evidence of aneurysm or retroperitoneal hematoma. BLADDER: The bladder is markedly distended suggesting bladder outlet obstruction. The prostate is enlarged measuring 5 x 5.1 cm in AP and TR dimensions. OSSEOUS STRUCTURES: Multilevel degenerative changes are seen in the thoracic and lumbar spine. No evidence of compression fracture or acute osseous abnormality. IMPRESSION: 1. No traumatic solid organ injury is visualized. The study is limited by the lack of intravenous contrast. 2. Evidence of bladder outlet obstruction with markedly distended bladder extending well above the umbilicus and moderately severe hydroureteronephrosis with prostatomegaly. 3. Nonspecific gallbladder wall thickening. The further evaluated with ultrasound. 4. Left lower lobe pulmonary nodules measuring up to 5 mm in size. Various management parameters for solitary pulmonary nodules are in the literature. According to the Fleischner Society, recommendations for pulmonary nodules are Nodule size > 4-6 mm in LOW RISK PATIENTS: Followup CT at 12 months; if unchanged, no further follow up. Nodule size > 4-6 mm in HIGH RISK PATIENTS: Initial followup CT at 6 months, then at 18 months if no change. DICTATED BY: Braden Rodriguez MD DATE/TIME DICTATED:03/21/17815 CHARGING CAR OPERATOR:MARISABEL DATE/TIME TRANSCRIBED:03/21/17815 CONFIDENTIAL, DO NOT COPY WITHOUT APPROPRIATE AUTHORIZATION. <Electronically signed in Other Vendor System> SIGNED BY: Braden Rodriguez MD 03/21/17 0844 ======= PATIENT: CHNYA HULL JR PRESENT AGE: 72 PATIENT ACCOUNT NO: [id number] : 43 LOCATION: [facility] ORDERING PHYSICIAN: Anders Varma MD SERVICE DATE: 03/21/17 EXAM TYPE: CAT - CT CERV SPINE WO IV CONTRAST; CT HEAD WO IV CONTRAST EXAMINATION: CT BRAIN AND CT CERVICAL SPINE WITHOUT CONTRAST. CLINICAL INFORMATION: Trauma. Fall. COMPARISON: None TECHNIQUE: 5 mm thin axial images of brain were obtained without contrast. Subsequently 2.5 mm thin axial and reformatted sagittal and coronal images of cervical spine were obtained. Dose 932 FINDINGS: BRAIN: There is no acute intra-axial, extra-axial bleed, masses or midline shift. 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 There is diffuse periventricular hypodensity in both cerebral hemispheres without mass effect. The lateral ventricles are enlarged and so are the cortical sulci suggestive of cerebral atrophy. Bone windows reveal no calvarial abnormality. There is moderate mucoperiosteal thickening bilateral maxillary and ethmoid sinuses. CERVICAL SPINE: Sagittal reconstructed images there is maintained cervical lordosis. The vertebral heights and alignment is normal. Mild loss of C7-T1 disc heights is noted. There is no visible acute fracture, dislocation or lytic process. There is left C2-C3, bilateral C3-C4 and left C4-C5 facet joint arthropathy. The prevertebral and paravertebral soft tissues are normal. The lung apices are clear. IMPRESSION: No acute intracranial abnormality seen except for moderate cerebral atrophy and diffuse periventricular hypodensity of white matter in both cerebral hemispheres. 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 There is no acute fracture or dislocation cervical spine. There is facet joint arthropathy upper cervical spine. DICTATED BY: Rios Whalen MD DATE/TIME DICTATED:03/21/17801 CHARGING CAR OPERATOR:MARISABEL DATE/TIME TRANSCRIBED:03/21/17801 CONFIDENTIAL, DO NOT COPY WITHOUT APPROPRIATE AUTHORIZATION. <Electronically signed in Other Vendor System> SIGNED BY: Marlee REID,Rios 03/21/17 1109 PATIENT: CHYNA HULL JR PRESENT AGE: 72 PATIENT ACCOUNT NO: [id number] : 43 LOCATION: [facility] ORDERING PHYSICIAN: Anders Varma MD SERVICE DATE: 03/21/17 EXAM TYPE: CAT - CT ABD & PELVIS W/O IV CONTRAS; CT CHEST WO IV CONTRAST EXAMINATION: CT CHEST, ABDOMEN AND PELVIS WITHOUT CONTRAST CLINICAL INFORMATION: Trauma. COMPARISON: No pertinent prior studies are available for comparison. TECHNIQUE: Multidetector volumetric imaging was performed from the thoracic inlet through the pubic symphysis following the administration of: Oral contrast: None Intravenous contrast: None Sagittal and coronal reformatted images were obtained on the technologist's workstation. TOTAL EXAM DLP: 386.61 mGy-cm FINDINGS: CHEST: LUNG: A left lower lobe pulmonary nodule measures 0.5 cm (image 276, series 5). Several additional juxtapleural pulmonary nodules measure 0.2 cm (image 290) and 0.3 cm (image 313). No evidence of pulmonary consolidation/contusion. No pneumothorax. PLEURA: No pleural effusion or pneumothorax. MEDIASTINUM: Calcification is present in the abdominal aorta, mitral annulus and extensive coronary artery calcification is present. VASCULAR: Evaluation for vascular injury is limited without intravenous contrast. No visible hematoma or aneurysm is seen. CHEST WALL/AXILLA: No axillary or internal mammary lymphadenopathy. ABDOMEN/PELVIS: LIVER, GALLBLADDER, AND BILIARY TREE: The liver is normal in size, shape, and attenuation. No focal hepatic lesion or biliary ductal dilatation is present. Evaluation for liver injury is limited without intravenous contrast. The gallbladder appears to have a thickened wall but is not well evaluated on this study. No gallbladder calcifications are seen. PANCREAS: Normal; no mass or surrounding fluid. SPLEEN: Normal size. No focal lesion. Evaluation for splenic injury is limited without intravenous contrast. ADRENAL GLANDS: Normal; no mass. KIDNEYS AND URETERS: The bilateral kidneys show moderately severe hydroureteronephrosis. GASTROINTESTINAL TRACT: Stomach and small bowel nondilated. No colonic wall thickening or pericolonic inflammatory changes. No pneumoperitoneum or extraluminal gas is seen. ABDOMINAL WALL: No significant hernia is appreciated. LYMPHOVASCULAR STRUCTURES: No evidence of lymphadenopathy. There is moderate atherosclerotic calcification in the abdominal aorta and iliac arteries and the celiac and superior mesenteric and inferior mesenteric arteries. Evaluation for vascular injury is limited without intravenous contrast. No evidence of aneurysm or retroperitoneal hematoma. BLADDER: The bladder is markedly distended suggesting bladder outlet obstruction. The prostate is enlarged measuring 5 x 5.1 cm in AP and TR dimensions. OSSEOUS STRUCTURES: Multilevel degenerative changes are seen in the thoracic and lumbar spine. No evidence of compression fracture or acute osseous abnormality. IMPRESSION: 1. No traumatic solid organ injury is visualized. The study is limited by the lack of intravenous contrast. 2. Evidence of bladder outlet obstruction with markedly distended bladder extending well above the umbilicus and moderately severe hydroureteronephrosis with prostatomegaly. 3. Nonspecific gallbladder wall thickening. The further evaluated with ultrasound. 4. Left lower lobe pulmonary nodules measuring up to 5 mm in size. Various management parameters for solitary pulmonary nodules are in the literature. According to the Fleischner Society, recommendations for pulmonary nodules are Nodule size > 4-6 mm in LOW RISK PATIENTS: Followup CT at 12 months; if unchanged, no further follow up. Nodule size > 4-6 mm in HIGH RISK PATIENTS: Initial followup CT at 6 months, then at 18 months if no change. DICTATED BY: Braden Rodriguez MD DATE/TIME DICTATED:03/21/17815 CHARGING CAR OPERATOR:MARISABEL DATE/TIME TRANSCRIBED:03/21/17815 CONFIDENTIAL, DO NOT COPY WITHOUT APPROPRIATE AUTHORIZATION. <Electronically signed in Other Vendor System> SIGNED BY: Braden Rodriguez MD 03/21/17 0844 PATIENT: CHYNA HULL JR. PRESENT AGE: 72 PATIENT ACCOUNT NO: [id number] : 43 LOCATION: [facility] ORDERING PHYSICIAN: Anders Varma MD SERVICE DATE: 03/21/17 EXAM TYPE: RAD - XRY-ELBOW 3 OR MORE VIEWS, R; XRY-KNEE COMPLETE RIGHT EXAMINATION: XR ELBOW, RIGHT XR KNEE, RIGHT CLINICAL INFORMATION: A 72-year-old male presented with right elbow and right knee pain. Status post fall. COMPARISON: None. TECHNIQUE: Three views, 5 images of the right elbow. Three views, 5 images of the right knee were obtained. FINDINGS: Right Elbow: Technically limited due to suboptimal positioning. Mild osteoarthrosis is noted. No radiographic evidence of any definite displaced fracture identified on these images. Right Knee: Technically limited due to suboptimal positioning. There is significant soft tissue swelling present. No definite radiographic evidence of any displaced fracture identified. IMPRESSION: 1. Technically limited study due to suboptimal positioning of both the right elbow and right knee. 2. No radiographic evidence of any displaced fracture is visualized within the right elbow and right knee. 3. Significant soft tissue swelling around the right knee. DICTATED BY: Jannette Bojorquez MD DATE/TIME DICTATED:03/21/17999 CHARGING CAR OPERATOR:MARISABEL DATE/TIME TRANSCRIBED:03/21/17999 CONFIDENTIAL, DO NOT COPY WITHOUT APPROPRIATE AUTHORIZATION. <Electronically signed in Other Vendor System> SIGNED BY: Jannette Bojroquez MD 03/21/17 1028 PATIENT: CHYNA HULL JR. PRESENT AGE: 72 PATIENT ACCOUNT NO: [id number] : 43 LOCATION: [facility] ORDERING PHYSICIAN: Anders Varma MD SERVICE DATE: 03/21/17 EXAM TYPE: CAT - CT CERV SPINE WO IV CONTRAST; CT HEAD WO IV CONTRAST EXAMINATION: CT BRAIN AND CT CERVICAL SPINE WITHOUT CONTRAST. CLINICAL INFORMATION: Trauma. Fall. COMPARISON: None TECHNIQUE: 5 mm thin axial images of brain were obtained without contrast. Subsequently 2.5 mm thin axial and reformatted sagittal and coronal images of cervical spine were obtained. Dose 932 FINDINGS: BRAIN: There is no acute intra-axial, extra-axial bleed, masses or midline shift. 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 There is diffuse periventricular hypodensity in both cerebral hemispheres without mass effect. The lateral ventricles are enlarged and so are the cortical sulci suggestive of cerebral atrophy. Bone windows reveal no calvarial abnormality. There is moderate mucoperiosteal thickening bilateral maxillary and ethmoid sinuses. CERVICAL SPINE: Sagittal reconstructed images there is maintained cervical lordosis. The vertebral heights and alignment is normal. Mild loss of C7-T1 disc heights is noted. There is no visible acute fracture, dislocation or lytic process. There is left C2-C3, bilateral C3-C4 and left C4-C5 facet joint arthropathy. The prevertebral and paravertebral soft tissues are normal. The lung apices are clear. IMPRESSION: No acute intracranial abnormality seen except for moderate cerebral atrophy and diffuse periventricular hypodensity of white matter in both cerebral hemispheres. 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 There is no acute fracture or dislocation cervical spine. There is facet joint arthropathy upper cervical spine. DICTATED BY: Rios Whalen MD DATE/TIME DICTATED:03/21/17801 CHARGING CAR OPERATOR:MARISABEL DATE/TIME TRANSCRIBED:03/21/17801 CONFIDENTIAL, DO NOT COPY WITHOUT APPROPRIATE AUTHORIZATION. <Electronically signed in Other Vendor System> SIGNED BY: Rios Whalen MD 03/21/17 1109 PATIENT: CHYNA HULL JRLina PRESENT AGE: 72 PATIENT ACCOUNT NO: [id number] : 43 LOCATION: [facility] ORDERING PHYSICIAN: Anders Varma MD SERVICE DATE: 03/21/17 EXAM TYPE: RAD - XRY-ELBOW 3 OR MORE VIEWS, R; XRY-KNEE COMPLETE RIGHT EXAMINATION: XR ELBOW, RIGHT XR KNEE, RIGHT CLINICAL INFORMATION: A 72-year-old male presented with right elbow and right knee pain. Status post fall. COMPARISON: None. TECHNIQUE: Three views, 5 images of the right elbow. Three views, 5 images of the right knee were obtained. FINDINGS: Right Elbow: Technically limited due to suboptimal positioning. Mild osteoarthrosis is noted. No radiographic evidence of any definite displaced fracture identified on these images. Right Knee: Technically limited due to suboptimal positioning. There is significant soft tissue swelling present. No definite radiographic evidence of any displaced fracture identified. IMPRESSION: 1. Technically limited study due to suboptimal positioning of both the right elbow and right knee. 2. No radiographic evidence of any displaced fracture is visualized within the right elbow and right knee. 3. Significant soft tissue swelling around the right knee. DICTATED BY: Jannette Bojorquez MD DATE/TIME DICTATED:03/21/17999 CHARGING CAR OPERATOR:MARISABEL DATE/TIME TRANSCRIBED:03/21/17999 CONFIDENTIAL, DO NOT COPY WITHOUT APPROPRIATE AUTHORIZATION. <Electronically signed in Other Vendor System> SIGNED BY: Jannette Bojorquez MD 03/21/17 1028 PATIENT: CHYNA HULL JR. PRESENT AGE: 72 PATIENT ACCOUNT NO: [id number] : 43 LOCATION: [facility] ORDERING PHYSICIAN: Anders Varma MD SERVICE DATE: 03/21/17 EXAM TYPE: US - US-UNILATERAL VENOUS DOPPLER EXAMINATION: US TRIPLEX LOWER EXTREMITY, RIGHT. CLINICAL INFORMATION: Right leg swelling. COMPARISON: None TECHNIQUE: Color-flow triplex imaging with spectral analysis and compression Doppler were performed on the lower extremity. FINDINGS: Respiratory variation, normal compression and augmented flow are noted throughout the lower extremity. The visualized common femoral vein, superficial femoral vein, profunda femoral vein, popliteal vein and midcalf peroneal and posterior tibial venous segments show no evidence of deep venous thrombosis. There is no Esparza's cyst. IMPRESSION: Normal right lower leg venous study. No evidence of DVT. DICTATED BY: Rios Whalen MD DATE/TIME DICTATED:03/21/17905 CHARGING CAR OPERATOR:CALLOWAY DATE/TIME TRANSCRIBED:03/21/17905 CONFIDENTIAL, DO NOT COPY WITHOUT APPROPRIATE AUTHORIZATION. <Electronically signed in Other Vendor System> SIGNED BY: Rios Whalen MD 03/21/17912 PATIENT: CHYNA HULL JR PRESENT AGE: 72 PATIENT ACCOUNT NO: [id number] : 43 LOCATION: [facility] ORDERING PHYSICIAN: Derrell Adam MD SERVICE DATE: 03/21/17 EXAM TYPE: RAD - [id number] VIEW EXAMINATION: XR ABDOMEN CLINICAL INDICATION: Position of Wu's catheter. COMPARISON: None TECHNIQUE: AP view of the abdomen. FINDINGS: Nonspecific bowel gas pattern is present. There is no definite radiographic evidence of Wu's catheter visualized within the included part of the pelvis. IMPRESSION: No radiographic evidence of Wu's catheter visualized within the included part of the pelvis. DICTATED BY: Jannette Bojorquez MD DATE/TIME DICTATED:03/21/171318 CHARGING CAR OPERATOR:MARISABEL DATE/TIME TRANSCRIBED:03/21/171318 CONFIDENTIAL, DO NOT COPY WITHOUT APPROPRIATE AUTHORIZATION. <Electronically signed in Other Vendor System> SIGNED BY: Jannette Bojorquez MD 03/21/17 1337 PATIENT: CHYNA HULL JR PRESENT AGE: 72 PATIENT ACCOUNT NO: [id number] : 43 LOCATION: [facility] ORDERING PHYSICIAN: Derrell Adam MD SERVICE DATE: 03/21/17 EXAM TYPE: US - US-LIMITED ABDOMEN EXAMINATION: US ABDOMEN LIMITED CLINICAL INFORMATION: Confirm Wu's catheter.. COMPARISON: None TECHNIQUE: Real-time imaging of the right upper quadrant abdominal viscera. FINDINGS: Mildly distended urinary bladder with a Wu's inflated catheter seen in the bladder. There is a large hyperechoic area seen in the dependent portion bladder, question mass versus debris. It is unlikely to represent an enlarged prostate. IMPRESSION: A Wu's catheter lies within the urinary bladder. However there is a soft tissue mass seen along the dependent portion of bladder suspicious for intrinsic lesion. Differential diagnosis to consider is intrinsic debris. Recommend cystoscopy. DICTATED BY: Rios Whalen MD DATE/TIME DICTATED:03/21/171532 CHARGING CAR OPERATOR:MARISABEL DATE/TIME TRANSCRIBED:03/21/171532 CONFIDENTIAL, DO NOT COPY WITHOUT APPROPRIATE AUTHORIZATION. <Electronically signed in Other Vendor System> SIGNED BY: Rios Whalen MD 03/21/17 1543 PATIENT: CHYNA HULL JR. PRESENT AGE: 72 PATIENT ACCOUNT NO: [id number] : 43 LOCATION: 1NO ORDERING PHYSICIAN: Juani Mooney MD SERVICE DATE: 03/24/17- EXAM TYPE: RAD - XRY-PORTABLE CHEST XRAY EXAMINATION: XR PORTABLE CHEST CLINICAL INFORMATION: Atrial fibrillation. Rule out pulmonary edema. COMPARISON: Chest CT 03/21/2017 TECHNIQUE: Portable frontal view of the chest was obtained. Examination mildly limited secondary to patient positioning. FINDINGS: Cardiac silhouette is not enlarged. Lung volumes at the lower limits of normal. No lobar consolidation. No gross pleural effusion. Mildly prominent perihilar structures bilaterally are nonspecific but likely accentuated secondary to low lung volumes. IMPRESSION: Low lung volumes without lobar consolidation or pleural effusion. DICTATED BY: Syed Jarrell MD DATE/TIME DICTATED:03/24/17942 CHARGING CAR OPERATOR:MARISABEL DATE/TIME TRANSCRIBED:03/24/17942 CONFIDENTIAL, DO NOT COPY WITHOUT APPROPRIATE AUTHORIZATION. <Electronically signed in Other Vendor System> SIGNED BY: Syed Jarrell MD 03/24/17 0949 PATIENT: CHYNA HULL JR. PRESENT AGE: 72 PATIENT ACCOUNT NO: [id number] : 43 LOCATION: 1NO ORDERING PHYSICIAN: Juani Mooney MD SERVICE DATE: 03/24/17- EXAM TYPE: RAD - XRY-PORTABLE CHEST XRAY EXAMINATION: XR PORTABLE CHEST CLINICAL INFORMATION: Atrial fibrillation. Rule out pulmonary edema. COMPARISON: Chest CT 03/21/2017 TECHNIQUE: Portable frontal view of the chest was obtained. Examination mildly limited secondary to patient positioning. FINDINGS: Cardiac silhouette is not enlarged. Lung volumes at the lower limits of normal. No lobar consolidation. No gross pleural effusion. Mildly prominent perihilar structures bilaterally are nonspecific but likely accentuated secondary to low lung volumes. IMPRESSION: Low lung volumes without lobar consolidation or pleural effusion. DICTATED BY: Syed Jarrell MD DATE/TIME DICTATED:03/24/17942 CHARGING CAR OPERATOR:MARISABEL DATE/TIME TRANSCRIBED:03/24/17942 CONFIDENTIAL, DO NOT COPY WITHOUT APPROPRIATE AUTHORIZATION. <Electronically signed in Other Vendor System> SIGNED BY: Syed Jarrell MD 03/24/1749 Disposition Summary Disposition Principal Diagnosis: afib/aflutter hematuria Additional Diagnosis: HTN, HLP, dementia, parkinsons Discharge Disposition: SNF Discharge Instructions General Discharge Information Code Status: Full Code Patient's Diet: heart healhty Patient's Activity: as tolerated Follow-Up Instructions/Appts: -please follow with pcp in 7 days -please follow up with urology 7 dyas after discharge. ( for wu evaluation) -please follow with cardiology 7 dyas after discharge. Medications at Discharge Discharge Medications: Stop taking the following medications: Metoprolol Succinate (Metoprolol Succinate) 25 MG TAB ORAL DAILY Qty = 39 Dipyridamole W/ Aspirin (Aggrenox 25 MG-200 MG Capsule) 25 MG-200 MG CPMP.12HR ORAL TWICE DAILY Qty = 56 Continue taking these medications: Carbidopa/Levodopa (Carbidopa-Levodopa 10-100 Tab) 10 MG-100 MG TABLET 1 Tablet ORAL THREE TIMES DAILY Qty = 270 Comments: Last Taken: 03/31/17 Time: 0815 AM Fluoxetine HCl (Fluoxetine HCl) 20 MG CAPSULE 1 Capsule ORAL DAILY Qty = 28 Comments: Last Taken: 03/31/17 Time: 0815 AM Omeprazole (Omeprazole) 20 MG CAPSULE.DR 1 Capsule ORAL DAILY Qty = 28 Comments: Last Taken:03/31/17 Time: 0815 AM Budesonide/Formoterol Fumarate (Symbicort 160-4.5 Mcg Inhaler) 160 MCG-4.5 MCG/ ACTUATION HFA.AER.AD 2 Puff Inhale through mouth TWICE DAILY Qty = 10 Comments: Last Taken: 03/31/17 Time: 0815 am Folic Acid/Vit Bcomp,C (Jennifer-Lalit Tablet) 0.8 MG TABLET 1 Tablet ORAL DAILY Comments: NOT GIVEN IN HOSPITAL Start taking the following new medications: Apixaban (Eliquis) 5 MG TABLET 5 Milligram ORAL TWICE DAILY Qty = 60 No Refills Comments: Last Taken: 03/31/17 Time: 0815 AM Finasteride (Finasteride) 5 MG TABLET 5 Milligram ORAL DAILY Qty = 30 No Refills Comments: Last Taken: 03/31/17 Time: 0815 AM Digoxin (Lanoxin) 125 MCG TABLET 0.125 Milligram ORAL 5 PM Qty = 30 No Refills Comments: NOT GIVEN IN HOSPITAL Diltiazem HCl (Diltiazem 24HR Cd) 300 MG CAP.ER.24H 300 Milligram ORAL DAILY Qty = 30 No Refills Comments: Last Taken: 03/31/17 Time: 0815 AM Metoprolol Tartrate (Metoprolol Tartrate) 25 MG TABLET 1 Tablet ORAL TWICE DAILY Qty = 60 No Refills Comments: Last Taken: 03/31/17 Time: 0815 AM Copies To: Rima REID,Harrison Tatum; Adelso REID,Hua Attending Review Statement Documenting Attending: Kory REID,Latoya Tatum Other Findings: agree with the above dc plan. Please see my separate attending note for more details.
--- NOTE | 2017-03-23 19:49 | PN- Cardiology ---
Subjective Subjective: No complaints. On telemetry he remains in atrial flutter with a ventricular response that is still in the 1 20 bpm range. Urine in Burk bag remains pink on continuous bladder irrigation. For cystoscopy tomorrow. Objective Vital Signs and I&Os Vital Signs Date Time Temp Pulse Resp B/P B/P Pulse O2 O2 Flow FiO2 Mean Ox Delivery Rate 03/23 1654 105 118/40 03/23 1635 Room Air Room Air 03/23 1454 94 03/23 1443 98.2 56 20 126/84 03/23 0714 97.7 144 20 128/64 95 Room Air 03/23 0030 97.4 146 18 120/50 03/22 2137 97.2 145 20 120/50 91 Intake & Output 03/23 1600 03/23 0800 03/23 0000 03/22 1600 03/22 0800 03/22 0000 Intake Total 789 711 2890 4075 695 655 Output Total 3000 4150 600 1400 Balance 820 220 -1455 -75 95 -745 Intake, IV 100 120 45 475 695 305 Intake, Oral 720 100 600 350 Intake, Other 1500 3000 Output, Urine 3000 4150 600 1400 Patient 175 lb Weight Weight Bed scale Measurement Method Physical Exam: Well-developed, well-nourished elderly male in no acute distress. Vital signs: See above. HEENT: Normocephalic, atraumatic, EOMI, slightly dry mucous membranes. Neck: No JVD, no bruits. Lungs: Clear to auscultation bilaterally. Heart: S1, S2 with 1/6 systolic murmur. No gallop or rub. PMI fifth ICS at [facility]. Abdomen: Soft, nontender, positive bowel sounds. Extremities: Trace bilateral lower extremity edema. Current Medications: Current Medications Sig/Jairon Start time Last Medication Dose Route Stop Time Status Admin Acetaminophen 650 MG Q6P PRN 03/21 1245 AC PO Budesonide/ 2 PUF BID 03/21 2199 AC 03/23 Formoterol Fumarate INH 1013 Carbidopa/Levodopa 1 TAB TID 03/21 2199 AC 03/23 PO 1654 Ceftriaxone Sodium 2,000 MG DAILY 03/23 1127 AC 03/23 IV 1328 Digoxin 0.25 MG 1700 03/23 1700 CAN PO 03/24 1701 Digoxin 0.25 MG 03/23 1700 AC 03/23 PO 1654 Digoxin 0.25 MG ONCE ONE 03/22 2355 DC 03/23 IV 03/22 2356 0030 Diltiazem HCl 125 MG Q8H 03/23 1400 AC 03/23 Dextrose/Water 100 ML IV 1654 Diltiazem HCl 125 MG Q12H 03/21 1115 DC 03/23 Dextrose/Water 100 ML IV 0827 Finasteride 5 MG DAILY 03/22 1229 AC 03/23 PO 1007 Fluoxetine HCl 20 MG DAILY 03/22 1000 AC 03/23 PO 1007 Omeprazole 20 MG DAILY 03/22 1000 AC 03/23 PO 1007 Results Last 48 Hrs of Labs/Mics: Laboratory Tests 03/23/17 0642: Anion Gap 10, Estimated GFR 54 L, BUN/Creatinine Ratio 18.5, CBC w Diff NO MAN DIFF REQ, RBC 2.80 L, MCV 91.2, MCH 29.2, RDW 16.9 H, MPV 8.0, Gran % 87.5 H, Lymphocytes % 4.8 L, Monocytes % 7.6, Eosinophils % 0.1, Basophils % 0, Absolute Granulocytes 15.6 H, Absolute Lymphocytes 0.9 L, Absolute Monocytes 1.3 H, Absolute Eosinophils 0, Absolute Basophils 0, PUBS MCHC 32.0 L 03/22/17 0540: Anion Gap 13, Estimated GFR 54 L, BUN/Creatinine Ratio 23.1, Vitamin B12 > 1000 H, Folate > 20.0 H, CBC w Diff NO MAN DIFF REQ, RBC 3.08 L, MCV 91.4, MCH 28.6, RDW 16.6 H, MPV 8.2, Gran % 74.9, Lymphocytes % 14.9 L, Monocytes % 8.4, Eosinophils % 1.4, Basophils % 0.4, Absolute Granulocytes 6.0, Absolute Lymphocytes 1.2, Absolute Monocytes 0.7 H, Absolute Eosinophils 0.1, Absolute Basophils 0, PUBS MCHC 31.3 L 03/21/171952: CBC w Diff NO MAN DIFF REQ, RBC 3.14 L, MCV 91.2, MCH 28.8, RDW 16.7 H, MPV 8.3, Gran % 75.4 H, Lymphocytes % 14.3 L, Monocytes % 8.8, Eosinophils % 1.0, Basophils % 0.5, Absolute Granulocytes 7.4 H, Absolute Lymphocytes 1.4, Absolute Monocytes 0.9 H, Absolute Eosinophils 0.1, Absolute Basophils 0, PUBS MCHC 31.6 L Assessment/Plan Assessment/Plan [id number] w/ hx HTN , COPD, dementia, depression, Parkinson's disease, GERD, and deafness who presented to ED from his assisting living facility following a mechanical fall and who was found to be in atrial fibrillation w/ 2:1 block on his 12-lead ECG. The patient is extremely hard of hearing precluding our ability to communicate effectively. Have discussed management options with the house staff on a daily basis. The ventricular response to his atrial flutter is coming under better control on his present regimen of digoxin 0.25 mg by mouth (after total of 1 mg IV) and IV diltiazem drip at 15 mL/hour. Fortunately, his blood pressure has also improved. Blood loss anemia with hemoglobin 8.2 g/dl. Consider transfusion to maintain hemoglobin at or above 8.0 g/dl. BUN/creatinine slightly improved from admission. Recommendations: * On digoxin 0.25 mg daily and check trough level at steady state. * Continue IV diltiazem and attempt to switch to oral diltiazem. * With improved BP readings can consider the addition of metoprolol 12.5 mg twice daily if the ventricular response to his atrial flutter remains too rapid. * Repeat CXR. * Restart anticoagulation when cleared by urology. * DVT prophylaxis. Continue telemetry? Yes
[2017-03-23 22:15] VITALS: BP 130/70
--- NOTE | 2017-03-24 07:31 | PN- Housestaff ---
See Addendum Subjective Follow-up For: Bladder mass, afib Tele-Events Since Last Visit: ?NSVT, otherwise afib, 80-120 Subjective: No overnight events. Patient does not have any complaints. He was asking about his procedure today, upset that he can't eat. Review of Systems Constitutional: Reports: no symptoms. EENTM: Reports: no symptoms. Cardiovascular: Reports: no symptoms. Respiratory: Reports: no symptoms. Gastrointestinal: Reports: no symptoms. Genitourinary: Reports: no symptoms. Musculoskeletal: Reports: no symptoms. Skin: Reports: no symptoms. Neurological/Psychological: Reports: no symptoms. Hematologic/Endocrine: Reports: no symptoms. Immunologic/Allergic: Reports: no symptoms. Objective Last 24 Hrs of Vital Signs/I&O Vital Signs Date Time Temp Pulse Resp B/P B/P Pulse O2 O2 Flow FiO2 Mean Ox Delivery Rate 03/24 0000 Room Air 03/23 2215 99.3 116 20 130/70 92 03/23 1654 105 118/40 03/23 1635 Room Air Room Air 03/23 1600 93 Room Air 03/23 1454 94 03/23 1443 98.2 56 20 126/84 Intake & Output 03/24 0800 03/24 0000 03/23 1600 Intake Total 120 570 820 Output Total 750 1800 Balance -630 -1230 820 Intake, IV 120 120 100 Intake, Oral 0 450 720 Output, Urine 750 1800 Physical Exam General Appearance: Alert, Cooperative, No Acute Distress Cardiovascular: irregular Lungs: Clear to Auscultation, Normal Air Movement Abdomen: guarding Neurological: Normal Speech Extremities: No Edema Current Medications: Current Medications Sig/Jairon Start time Last Medication Dose Route Stop Time Status Admin Acetaminophen 650 MG Q6P PRN 03/21 1245 AC PO Budesonide/ 2 PUF BID 03/21 2200 AC 03/23 Formoterol Fumarate INH 2057 Carbidopa/Levodopa 1 TAB TID 03/21 2200 AC 03/23 PO 205 Ceftriaxone Sodium 2,000 MG DAILY 03/23 1127 AC 03/23 IV 1328 Digoxin 0.25 MG 03/23 1700 CAN PO 03/24 1701 Digoxin 0.25 MG 17003/23 1700 AC 03/23 PO 1654 Diltiazem HCl 125 MG Q8H 03/23 1400 AC 03/24 Dextrose/Water 100 ML IV 0059 Diltiazem HCl 125 MG Q12H 03/21 1115 DC 03/23 Dextrose/Water 100 ML IV 0827 Finasteride 5 MG DAILY 03/22 1229 AC 03/23 PO 1007 Fluoxetine HCl 20 MG DAILY 03/22 1000 AC 03/23 PO 1007 Omeprazole 20 MG DAILY 03/22 1000 AC 03/23 PO 1007 Last 24 Hrs of Lab/Benjie Results Last 24 Hrs of Labs/Mics: Laboratory Tests 03/24/17 0645: Sodium Pending, Potassium Pending, Chloride Pending, Carbon Dioxide Pending, Anion Gap Pending, BUN Pending, Creatinine Pending, BUN/Creatinine Ratio Pending , CBC w Diff Pending, WBC Pending, RBC Pending, Hgb Pending, Hct Pending, MCV Pending, MCH Pending, RDW Pending, Plt Count Pending, MPV Pending, PUBS MCHC Pending, Digoxin Pending Assessment/Plan Assessment: Mr. Hull is a 72-year-old male with past medical history significant for hypertension, COPD, dementia, Parkinson disease, depression, GERD, who presented to ED from [facility] after a fall. Problem list 1. Fall 2. New onset atrial fibrillation/A flutter 3. Bladder mass 4. DANG 5. Bilateral lower extremity edema 6. Acute blood loss anemia #New onset atrial fibrillation/A flutter: Patient received 3 boluses of 10 mg IV diltiazem in the ED and was still tachycardic. He was started on a diltiazem drip. He is currently on 15 mL per hour. Digoxin was started as well. EKG and troponins 3 negative. Rates overnight have been in the 80-120. -Hold off anticoagulation for syeda hematuria. -Continue diltiazem drip. Switch to dilt 90mg Q6H after cystoscopy today with 1 hr overlap with drip -Continue digoxin -Appreciate cardiology recommendations #Suspicious bladder mass: Abdominal ultrasound showed a suspicious bladder mass that may be causing his urinary outlet obstruction and subsequent obstructive kidney injury. Burk catheter was placed in the ED and yielded 2.5 mL of clear yellow urine afterwards patient had syeda hematuria. He has been hemodynamically stable. PSA is also elevated at 8.51. Urology was consulted and plans to do cystoscopy today. Luekocytosis improving with antibiotics. -Continuous bladder irrigation -Appreciate urology recommendations -Cystoscopy today -Continue finasteride -Continue ceftriaxone for UTI (Day 2) #Fall: Patient has history of fall, unclear if he lost his consciousness or not. Was found alert oriented on the floor, hit his head, CT didn't show any intracranial changes. Orthostatic vital was negative though they did not do a standing blood pressure. -Continue to monitor #Acute blood loss anemia: Patient presented with hemoglobin 10.4/32.5, no previous baseline. After draining 2500 mL of clear urine by Burk catheter, patient started to have syeda hematuria. No history of previous hematuria per patient/son/nurse. Hemoglobin has been downtrending but he has been hemodynamically stable. Today H/H 7.7/24.2. -2 large-bore peripheral IV lines -Type and crossmatch -Hemoglobin goal greater than 8 per cardiology -Recheck CBC at 1800 #Bilateral lower extremity edema: Likely chronic in nature. TTE revealed EF greater than 65% and right ventricular systolic pressure 35 mmHg. -Continue to monitor #Chronic medical problems: -Continue home omeprazole, fluoxetine, carbidopa/levodopa, budesonide/formoterol DVT prophylaxis with Alps Nothing by mouth Full code Problem List: 1. New onset a-fib 2. Bladder outflow obstruction Pain Ratin Pain Location: none Pain Goal: Remain pain free Pain Plan: ee a/p Tomorrow's Labs & Rationales: cbc, bep
[2017-03-24 07:39] VITALS: BP 122/54
[2017-03-24 07:53] LABS: ABSOLUTE BASOPHIL COUNT 0 /CUMM (0.0-0.2); ABSOLUTE EOSINOPHIL COUNT 0.1 /CUMM (0.0-0.7); ABSOLUTE GRANULOCYTE CT 8.4 /CUMM (1.4-6.5); ABSOLUTE LYMPH COUNT 1.2 /CUMM (1.2-3.4); BASOPHIL % 0.1 % (0.0-2.0); EOSINOPHIL % 1.3 % (0-5); GRANULOCYTE % 78.6 % (42.2-75.2); HEMATOCRIT 24.2 % (42-52); MEAN CORPUSCULAR HGB CONC 31.7 G/DL (33.0-37.0); MEAN CORPUSCULAR VOLUME 91.4 FL (80.0-94.0); MEAN PLATELET VOLUME 8.1 FL (7.4-10.4); PLATELET COUNT 268 /CUMM (130-400); RBC DISTRIBUTION WIDTH 16.9 % (11.5-14.5); RED BLOOD CELL CT 2.65 /CUMM (4.70-6.10); WHITE BLOOD CELL COUNT 10.7 /CUMM (4.8-10.8)
--- NOTE | 2017-03-24 07:58 | PN- Student ---
Subjective Subjective: Follow Up for: Atrial Flutter v RVR Tele events Afibb with NSVT events,HR 80-110 Subjective:No overnight events.Patient is FL[place] but had no complaints.Patient was wondering why he couldn't have breakfast.Currently NPO for cystoscopy this morning. Review of Systems Review of Systems Constitutional: Reports: no symptoms. EENTM: Reports: no symptoms. Cardiovascular: Reports: no symptoms. Respiratory: Reports: no symptoms. GI: Reports: no symptoms. Genitourinary: Reports: no symptoms. Musculoskeletal: Reports: no symptoms. Skin: Reports: no symptoms. Objective Objective: Vital Signs Date Time Temp Pulse Resp B/P B/P Pulse O2 O2 Flow FiO2 Mean Ox Delivery Rate 03/24 0739 98.8 111 22 122/54 92 Room Air 03/24 0000 Room Air 03/23 2215 99.3 116 20 130/70 92 Intake & Output 03/24 1600 03/24 0800 03/24 0000 Intake Total 120 570 Output Total 750 1800 Balance -630 -1230 Intake, IV 120 120 Intake, Oral 0 450 Output, Urine 750 1800 Physical Exam General Appearance: Alert, Cooperative, No Acute Distress Cardiovascular: irregular, Lungs: Clear to Auscultation Abdomen: guarding Neurological: Normal Speech Extremities: R leg swollen > L Current Medications Sig/Jarion Start time Last Medication Dose Route Stop Time Status Admin Acetaminophen 650 MG Q6P PRN 03/21 1245 AC PO Budesonide/ 2 PUF BID 03/21 2200 AC 03/24 Formoterol Fumarate INH 0805 Carbidopa/Levodopa 1 TAB TID 03/21 2200 AC 03/24 PO 0816 Ceftriaxone Sodium 1,000 MG DAILY 03/25 1000 AC IV Ceftriaxone Sodium 2,000 MG DAILY 03/23 1127 DC 03/24 IV 0805 Digoxin 0.25 MG 1700 03/23 1700 CAN PO 03/24 1701 Digoxin 0.25 MG 1700 03/23 1700 AC 03/23 PO 1654 Diltiazem HCl 125 MG 0200,1000,1800 03/24 1800 AC Dextrose/Water 100 ML IV Diltiazem HCl 125 MG Q8H 03/23 1400 DC 03/24 Dextrose/Water 100 ML IV 1017 Finasteride 5 MG DAILY 03/22 1229 AC 03/24 PO 0804 Fluoxetine HCl 20 MG DAILY 03/22 1000 AC 03/24 PO 0804 Omeprazole 20 MG DAILY 03/22 1000 AC 03/24 PO 0804 Results Results: Laboratory Tests 03/24/17 1029: CBC w Diff Cancelled, WBC Cancelled, RBC Cancelled, Hgb Cancelled, Hct Cancelled , MCV Cancelled, MCH Cancelled, RDW Cancelled, Plt Count Cancelled, MPV Cancelled, PUBS MCHC Cancelled 03/24/17 0645: Anion Gap 12, Estimated GFR > 60, BUN/Creatinine Ratio 17.0, Phosphorus 2.4 L, Magnesium 1.4 L, CBC w Diff NO MAN DIFF REQ, RBC 2.65 L, MCV 91.4, MCH 29.0, RDW 16.9 H, MPV 8.1, Gran % 78.6 H, Lymphocytes % 10.9 L, Monocytes % 9.1, Eosinophils % 1.3, Basophils % 0.1, Absolute Granulocytes 8.4 H, Absolute Lymphocytes 1.2, Absolute Monocytes 1.0 H, Absolute Eosinophils 0.1, Absolute Basophils 0, PUBS MCHC 31.7 L, Digoxin 1.4 03/23/17 0642: Anion Gap 10, Estimated GFR 54 L, BUN/Creatinine Ratio 18.5, CBC w Diff NO MAN DIFF REQ, RBC 2.80 L, MCV 91.2, MCH 29.2, RDW 16.9 H, MPV 8.0, Gran % 87.5 H, Lymphocytes % 4.8 L, Monocytes % 7.6, Eosinophils % 0.1, Basophils % 0, Absolute Granulocytes 15.6 H, Absolute Lymphocytes 0.9 L, Absolute Monocytes 1.3 H, Absolute Eosinophils 0, Absolute Basophils 0, PUBS MCHC 32.0 L 03/22/17 0540: Anion Gap 13, Estimated GFR 54 L, BUN/Creatinine Ratio 23.1, Vitamin B12 > 1000 H, Folate > 20.0 H, CBC w Diff NO MAN DIFF REQ, RBC 3.08 L, MCV 91.4, MCH 28.6, RDW 16.6 H, MPV 8.2, Gran % 74.9, Lymphocytes % 14.9 L, Monocytes % 8.4, Eosinophils % 1.4, Basophils % 0.4, Absolute Granulocytes 6.0, Absolute Lymphocytes 1.2, Absolute Monocytes 0.7 H, Absolute Eosinophils 0.1, Absolute Basophils 0, PUBS MCHC 31.3 L 03/21/171952: CBC w Diff NO MAN DIFF REQ, RBC 3.14 L, MCV 91.2, MCH 28.8, RDW 16.7 H, MPV 8.3, Gran % 75.4 H, Lymphocytes % 14.3 L, Monocytes % 8.8, Eosinophils % 1.0, Basophils % 0.5, Absolute Granulocytes 7.4 H, Absolute Lymphocytes 1.4, Absolute Monocytes 0.9 H, Absolute Eosinophils 0.1, Absolute Basophils 0, PUBS MCHC 31.6 L 03/21/17 1410: Troponin I < 0.01 Microbiology 03/22 1600 URINE ROUT: Urine Culture - COMP Assessment/Plan Assessment: Mr. Hull is a 72-year-old male with past medical history significant for hypertension, COPD, dementia, Parkinson disease, depression, GERD, who presented to ED from [facility] after a fall. Problem List, New onset atrial flutter/ atrial fibrillation Bladder mass Acute anemia due to blood loss Bilateral lower extremity edema Plan: New onset atrial fibrillation/A flutter: Patient received 3 boluses of 10 mg IV diltiazem in the ED and was still tachycardic. He was started on a diltiazem drip. Drip was tritrated up and currently on 15 mL per hour. Digoxin was started as well. EKG and troponins 3 negative. Rates overnight have been in the 80-120 with some NSVT lasting 4 or 5 beats before resolving back to baseline a.flutter waveform. -Hold off anticoagulation for syeda hematuria. -Continue diltiazem drip. Switch to oral diltiazem 90mg Q6H after cystoscopy today with 1 hr overlap with drip -Continue digoxin -addition of metoprolol 12.5 mg twice daily if the ventricular response to his atrial flutter remains too rapid. -Appreciate cardiology recommendations Bladder mass: Abdominal ultrasound showed a suspicious bladder mass that may be causing his urinary outlet obstruction and subsequent kidney injury. Burk catheter was placed in the ED and yielded 2.5 mL of clear yellow urine followed by syeda hematuria. He has been hemodynamically stable. PSA is also elevated at 8.51 and prostate appears enlarged on imaging. Urology was consulted and plans to do cystoscopy today with possible biopsy. Luekocytosis improving with antibiotics, WBC values downtrending. -Continuous bladder irrigation -Appreciate urology recommendations -Cystoscopy today -Continue finasteride -Continue ceftriaxone for UTI Acute Anemia due to blood loss. Patient presented with a Hemoglobing of 10.4 (no history of baseline values) that has downtrended to 7.7 today.This can be attributed to his syeda hematuria. No history of previous hematuria per patient/son/nurse. -Hemoglobin goal greater than 8 per cardiology -type and cross match -consider tranfusion as per cardiology -appreciate urology reccomendations Bilateral Lower Extremity Edema. Most likely chronic in nature and possibly attributed to his pulmonary htn. TTE revealed EF greater than 65% and right ventricular systolic pressure 35 mmHg. -Continue to monitor Chronic medical problems: -Continue home omeprazole, fluoxetine, carbidopa/levodopa, budesonide/formoterol DVT prophylaxis with Alps Nothing by mouth Full code
--- NOTE | 2017-03-24 09:49 | RADIOLOGY REPORT ---
EXAMINATION: XR PORTABLE CHEST CLINICAL INFORMATION: Atrial fibrillation. Rule out pulmonary edema. COMPARISON: Chest CT 03/21/2017 TECHNIQUE: Portable frontal view of the chest was obtained. Examination mildly limited secondary to patient positioning. FINDINGS: Cardiac silhouette is not enlarged. Lung volumes at the lower limits of normal. No lobar consolidation. No gross pleural effusion. Mildly prominent perihilar structures bilaterally are nonspecific but likely accentuated secondary to low lung volumes. IMPRESSION: Low lung volumes without lobar consolidation or pleural effusion.
[2017-03-24 16:00] VITALS: BP 105/56
[2017-03-24 20:06] LABS: ABSOLUTE BASOPHIL COUNT 0 /CUMM (0.0-0.2); ABSOLUTE EOSINOPHIL COUNT 0.2 /CUMM (0.0-0.7); ABSOLUTE GRANULOCYTE CT 9.2 /CUMM (1.4-6.5); ABSOLUTE LYMPH COUNT 1.1 /CUMM (1.2-3.4); BASOPHIL % 0.3 % (0.0-2.0); EOSINOPHIL % 1.6 % (0-5); GRANULOCYTE % 79.7 % (42.2-75.2); HEMATOCRIT 28.2 % (42-52); MEAN CORPUSCULAR HGB 28.5 PG (27.0-31.0); MEAN CORPUSCULAR HGB CONC 31.1 G/DL (33.0-37.0); MEAN CORPUSCULAR VOLUME 91.8 FL (80.0-94.0); MEAN PLATELET VOLUME 8.4 FL (7.4-10.4); PLATELET COUNT 310 /CUMM (130-400); RBC DISTRIBUTION WIDTH 17.2 % (11.5-14.5); RED BLOOD CELL CT 3.07 /CUMM (4.70-6.10); WHITE BLOOD CELL COUNT 11.5 /CUMM (4.8-10.8)
[2017-03-24 21:43] VITALS: BP 104/56
[2017-03-25 06:47] VITALS: BP 92/52
--- NOTE | 2017-03-25 07:37 | PN- Housestaff ---
See Addendum Subjective Follow-up For: Afib, bladder mass Tele-Events Since Last Visit: Afib, 60-100 Subjective: No overnight Events. People feels well this morning, no pain or issues. Review of Systems Constitutional: Reports: no symptoms. EENTM: Reports: no symptoms. Cardiovascular: Reports: no symptoms. Respiratory: Reports: no symptoms. Gastrointestinal: Reports: no symptoms. Genitourinary: Reports: no symptoms. Musculoskeletal: Reports: no symptoms. Skin: Reports: no symptoms. Neurological/Psychological: Reports: no symptoms. Hematologic/Endocrine: Reports: no symptoms. Immunologic/Allergic: Reports: no symptoms. Objective Last 24 Hrs of Vital Signs/I&O Vital Signs Date Time Temp Pulse Resp B/P B/P Pulse O2 O2 Flow FiO2 Mean Ox Delivery Rate 03/25 0647 99.2 93 20 92/52 91 Room Air 03/25 0000 Room Air 03/24 2143 97.6 86 20 104/56 91 Room Air 03/24 1704 107 104/62 03/24 1600 98.3 109 20 105/56 95 Room Air 03/24 0739 98.8 111 22 122/54 92 Room Air Intake & Output 03/25 0800 03/25 0000 03/24 1600 Intake Total 240 260 120 Output Total 1350 Balance 240 260 -1230 Intake, IV 120 120 Intake, Oral 120 260 Output, Urine 1350 Physical Exam General Appearance: Alert, Oriented X3, Cooperative, No Acute Distress Cardiovascular: irregular Lungs: Clear to Auscultation Abdomen: Normal Bowel Sounds, No Tenderness, wu with reddish urine Extremities: No Edema Current Medications: Current Medications Sig/Jairon Start time Last Medication Dose Route Stop Time Status Admin Acetaminophen 650 MG Q6P PRN 03/21 1245 AC PO Budesonide/ 2 PUF BID 03/21 220 AC 03/24 Formoterol Fumarate INH 2036 Carbidopa/Levodopa 1 TAB TID 03/21 220 AC 03/24 PO 203 Ceftriaxone Sodium 1,000 MG DAILY 03/25 1000 AC IV Ceftriaxone Sodium 2,000 MG DAILY 03/23 1127 DC 03/24 IV 0805 Digoxin 0.25 MG 1700 03/23 1700 AC 03/24 PO 1704 Diltiazem HCl 125 MG 0200,1000,1800 03/24 1800 AC 03/25 Dextrose/Water 100 ML IV 0410 Diltiazem HCl 125 MG Q8H 03/23 1400 DC 03/24 Dextrose/Water 100 ML IV 1017 Fentanyl Citrate 200 MCG .STK-MED ONE 03/24 1451 DC IM 03/24 1452 Finasteride 5 MG DAILY 03/22 1229 AC 03/24 PO 0804 Fluoxetine HCl 20 MG DAILY 03/22 1000 AC 03/24 PO 0804 Omeprazole 20 MG DAILY 03/22 1000 AC 03/24 PO 0804 Last 24 Hrs of Lab/Benjie Results Last 24 Hrs of Labs/Mics: Laboratory Tests 03/25/17 0650: Sodium Pending, Potassium Pending, Chloride Pending, Carbon Dioxide Pending, Anion Gap Pending, BUN Pending, Creatinine Pending, BUN/Creatinine Ratio Pending , CBC w Diff Pending, WBC Pending, RBC Pending, Hgb Pending, Hct Pending, MCV Pending, MCH Pending, RDW Pending, Plt Count Pending, MPV Pending, PUBS MCHC Pending 03/24/17 1850: CBC w Diff NO MAN DIFF REQ, RBC 3.07 L, MCV 91.8, MCH 28.5, RDW 17.2 H, MPV 8.4, Gran % 79.7 H, Lymphocytes % 9.6 L, Monocytes % 8.8, Eosinophils % 1.6, Basophils % 0.3, Absolute Granulocytes 9.2 H, Absolute Lymphocytes 1.1 L, Absolute Monocytes 1.0 H, Absolute Eosinophils 0.2, Absolute Basophils 0, PUBS MCHC 31.1 L 03/24/17 1029: CBC w Diff Cancelled, WBC Cancelled, RBC Cancelled, Hgb Cancelled, Hct Cancelled , MCV Cancelled, MCH Cancelled, RDW Cancelled, Plt Count Cancelled, MPV Cancelled, PUBS MCHC Cancelled Assessment/Plan Assessment: Mr. Hull is a 72-year-old male with past medical history significant for hypertension, COPD, dementia, Parkinson disease, depression, GERD, who presented to ED from [facility] after a fall. Problem list 1. Fall 2. New onset atrial fibrillation/A flutter 3. Bladder mass 4. DANG 5. Bilateral lower extremity edema 6. Acute blood loss anemia #New onset atrial fibrillation/A flutter: Patient received 3 boluses of 10 mg IV diltiazem in the ED and was still tachycardic. He was started on a diltiazem drip. He is currently on 15 mL per hour. Digoxin was started as well. EKG and troponins 3 negative. Rates overnight have been in the 80-120 that he sometimes go into a flutter in the rates are 140. -Hold off anticoagulation for syeda hematuria. -Continue diltiazem drip -Continue digoxin. Reduce dose to 0.125 mg to prevent toxicity -Appreciate cardiology recommendations #Suspicious bladder mass: Abdominal ultrasound showed a suspicious bladder mass that may be causing his urinary outlet obstruction and subsequent obstructive kidney injury. Wu catheter was placed in the ED and yielded 2.5 mL of clear yellow urine afterwards patient had syeda hematuria. He has been hemodynamically stable. PSA is also elevated at 8.51. Luekocytosis improving with antibiotics. Urology did a cystoscopy yesterday but they did not leave a note. We will contact them today to see what was done and the recommendations regarding anticoagulation. -Continuous bladder irrigation -Appreciate urology recommendations -Continue finasteride -Continue ceftriaxone for UTI (Day 3) #Fall: Patient has history of fall, unclear if he lost his consciousness or not. Was found alert oriented on the floor, hit his head, CT didn't show any intracranial changes. Orthostatic vital was negative though they did not do a standing blood pressure. -Continue to monitor #Acute blood loss anemia: Patient presented with hemoglobin 10.4/32.5, no previous baseline. After draining 2500 mL of clear urine by Wu catheter, patient started to have syeda hematuria. No history of previous hematuria per patient/son/nurse. Hemoglobin has been downtrending but he has been hemodynamically stable. Today H/H 7.9/25.2. -2 large-bore peripheral IV lines -Type and crossmatch -Hemoglobin goal greater than 8 per cardiology -Transfuse 1 unit -Repeat CBC after transfusion #Bilateral lower extremity edema: Likely chronic in nature. TTE revealed EF greater than 65% and right ventricular systolic pressure 35 mmHg. -Continue to monitor #Chronic medical problems: -Continue home omeprazole, fluoxetine, carbidopa/levodopa, budesonide/formoterol DVT prophylaxis with Alps Nothing by mouth Full code Problem List: 1. Hematuria 2. New onset a-fib Pain Ratin Pain Location: none Pain Goal: Remain pain free Pain Plan: see a/p Tomorrow's Labs & Rationales: cbc, bep
[2017-03-25 07:54] LABS: ABSOLUTE BASOPHIL COUNT 0 /CUMM (0.0-0.2); ABSOLUTE EOSINOPHIL COUNT 0.3 /CUMM (0.0-0.7); ABSOLUTE GRANULOCYTE CT 7.8 /CUMM (1.4-6.5); ABSOLUTE MONOCYTE COUNT 0.9 /CUMM (0.10-0.60); BASOPHIL % 0.2 % (0.0-2.0); EOSINOPHIL % 3.1 % (0-5); HEMATOCRIT 25.2 % (42-52); MEAN CORPUSCULAR HGB 28.5 PG (27.0-31.0); MEAN CORPUSCULAR HGB CONC 31.2 G/DL (33.0-37.0); MEAN CORPUSCULAR VOLUME 91.5 FL (80.0-94.0); PLATELET COUNT 308 /CUMM (130-400); RBC DISTRIBUTION WIDTH 17.2 % (11.5-14.5); RED BLOOD CELL CT 2.76 /CUMM (4.70-6.10); WHITE BLOOD CELL COUNT 10.1 /CUMM (4.8-10.8)
[2017-03-25 10:17] VITALS: BP 98/50
[2017-03-25 14:24] VITALS: BP 98/50
[2017-03-25 22:34] VITALS: BP 102/60
[2017-03-26 07:47] LABS: ABSOLUTE BASOPHIL COUNT 0 /CUMM (0.0-0.2); ABSOLUTE EOSINOPHIL COUNT 0.6 /CUMM (0.0-0.7); ABSOLUTE MONOCYTE COUNT 0.9 /CUMM (0.10-0.60); BASOPHIL % 0.2 % (0.0-2.0); EOSINOPHIL % 5.5 % (0-5); HEMATOCRIT 29.1 % (42-52); MEAN CORPUSCULAR HGB CONC 31.9 G/DL (33.0-37.0); MEAN CORPUSCULAR VOLUME 90.8 FL (80.0-94.0); MEAN PLATELET VOLUME 7.9 FL (7.4-10.4); PLATELET COUNT 338 /CUMM (130-400); RED BLOOD CELL CT 3.21 /CUMM (4.70-6.10); WHITE BLOOD CELL COUNT 10.5 /CUMM (4.8-10.8)
[2017-03-26] MEDS ORDERED: FINASTERIDE5 M1 PO (07:53)
[2017-03-26] MEDS ORDERED: ELIQUIS5 M1 PO (07:53)
--- NOTE | 2017-03-26 08:02 | PN- Housestaff ---
See Addendum Subjective Follow-up For: Afib, traumatic wu Tele-Events Since Last Visit: SRT 60-75 Subjective: No overnight events. He wants to go home. no pain or issues. Last BM was 03/21. Review of Systems Constitutional: Reports: no symptoms. EENTM: Reports: no symptoms. Cardiovascular: Reports: no symptoms. Respiratory: Reports: no symptoms. Gastrointestinal: Reports: no symptoms. Genitourinary: Reports: no symptoms. Musculoskeletal: Reports: no symptoms. Skin: Reports: no symptoms. Neurological/Psychological: Reports: no symptoms. Hematologic/Endocrine: Reports: no symptoms. Immunologic/Allergic: Reports: no symptoms. Objective Last 24 Hrs of Vital Signs/I&O Vital Signs Date Time Temp Pulse Resp B/P B/P Pulse O2 O2 Flow FiO2 Mean Ox Delivery Rate 03/25 2234 98.0 108 20 102/60 95 Room Air 03/25 2058 Room Air 03/25 1547 96 98/54 03/25 1523 95 Room Air 03/25 1456 Room Air Room Air 03/25 1424 98.5 100 20 98/50 95 Room Air 03/25 1031 90 96/50 03/25 1017 98/50 Intake & Output 03/26 1600 03/26 0800 03/26 0000 Intake Total 470 375 Output Total 2250 Balance -1780 375 Intake, IV 120 195 Intake, Oral 350 180 Output, Urine 2250 Physical Exam General Appearance: Alert, Oriented X3, Cooperative, No Acute Distress Cardiovascular: Regular Rate, Normal S1, Normal S2 Lungs: Clear to Auscultation Abdomen: Normal Bowel Sounds, Soft, No Tenderness, wu with yellow urine, no blood Extremities: No Edema Current Medications: Current Medications Sig/Jairon Start time Last Medication Dose Route Stop Time Status Admin Acetaminophen 650 MG Q6P PRN 03/21 1245 AC PO Apixaban 5 MG BID 03/25 1332 AC 03/25 PO 2002 Budesonide/ 2 PUF BID 03/21 2200 AC 03/25 Formoterol Fumarate INH 2002 Carbidopa/Levodopa 1 TAB TID 03/21 2200 AC 03/25 PO 2002 Ceftriaxone Sodium 1,000 MG DAILY 03/25 1000 AC 03/25 IV 1032 Digoxin 0.125 MG 1700 03/25 1700 AC 03/25 PO 1547 Digoxin 0.25 MG 03/23 1700 DC 03/24 PO 1704 Diltiazem HCl 125 MG 0200,1000,1800 03/24 1800 AC 03/26 Dextrose/Water 100 ML IV 0241 Finasteride 5 MG DAILY 03/22 1229 AC 03/25 PO 1031 Fluoxetine HCl 20 MG DAILY 03/22 1000 AC 03/25 PO 1031 Magnesium Sulfate 1 GM Q2H 03/25 1700 DC 03/25 Dextrose/Water 100 ML IV 03/25 Metoprolol Tartrate 12.5 MG BID 03/25 1000 DC PO Omeprazole 20 MG DAILY 03/22 1000 AC 03/25 PO 1031 Phosphate 250 MG PC AND AT BEDTIME 03/25 1800 AC 03/25 PO 2000 Senna/Docusate Sodium 2 TAB DAILY PRN 03/25 1730 AC PO Sodium Chloride 500 ML BOLUS ONE 03/25 0800 DC 03/25 IV 03/25 0859 0754 Last 24 Hrs of Lab/Benjie Results Last 24 Hrs of Labs/Mics: Laboratory Tests 03/26/17 0630: Sodium Pending, Potassium Pending, Chloride Pending, Carbon Dioxide Pending, Anion Gap Pending, BUN Pending, Creatinine Pending, BUN/Creatinine Ratio Pending , Phosphorus Pending, Magnesium Pending, CBC w Diff NO MAN DIFF REQ, RBC 3.21 L , MCV 90.8, MCH 29.0, MCHC 31.9 L, RDW 18.0 H, MPV 7.9, Gran % 76.0 H, Lymphocytes % 9.7 L, Monocytes % 8.6, Eosinophils % 5.5 H, Basophils % 0.2, Absolute Granulocytes 8.0 H, Absolute Lymphocytes 1.0 L, Absolute Monocytes 0.9 H, Absolute Eosinophils 0.6, Absolute Basophils 0 Assessment/Plan Assessment: Mr. Hull is a 72-year-old male with past medical history significant for hypertension, COPD, dementia, Parkinson disease, depression, GERD, who presented to ED from [facility] after a fall. Problem list 1. Fall 2. New onset atrial fibrillation/A flutter 3. Traumatic wu 4. DANG 5. Bilateral lower extremity edema 6. Acute blood loss anemia #New onset atrial fibrillation/A flutter: Patient received 3 boluses of 10 mg IV diltiazem in the ED and was still tachycardic. He was started on a diltiazem drip. He is currently on 15 mL per hour. Digoxin was started as well. EKG and troponins 3 negative. Rates overnight have been in the 80-120 that he sometimes go into a flutter in the rates are 140. -Hold off anticoagulation for syeda hematuria. -Continue diltiazem drip -Continue digoxin. Reduce dose to 0.125 mg to prevent toxicity -Appreciate cardiology recommendations #Traumatic wu: Abdominal ultrasound showed a suspicious bladder mass. Wu catheter was placed in the ED and yielded 2.5 mL of clear yellow urine afterwards patient had syeda hematuria. He has been hemodynamically stable. PSA is also elevated at 8.51. Urology evaluated and noted that the Wu was inserted through the urethra, below the prostate, and behind the bladder in the retroperitoneum. Wu is now correctly inserted. From urology standpoint, he can be discharged and should follow up in 1 week for evaluation. -Continuous bladder irrigation -Appreciate urology recommendations: outpatient follow up -Continue finasteride -Stop ceftriaxone -Do not remove wu #Fall: Patient has history of fall, unclear if he lost his consciousness or not. Was found alert oriented on the floor, hit his head, CT didn't show any intracranial changes. Orthostatic vital was negative though they did not do a standing blood pressure. -Continue to monitor #Acute blood loss anemia: Patient presented with hemoglobin 10.4/32.5, no previous baseline. After draining 2500 mL of clear urine by Wu catheter, patient started to have syeda hematuria. No history of previous hematuria per patient/son/nurse. Hemoglobin has been downtrending but he has been hemodynamically stable. Today H/H is improved. -2 large-bore peripheral IV lines -Type and crossmatch -Hemoglobin goal greater than 8 per cardiology #Bilateral lower extremity edema: Likely chronic in nature. TTE revealed EF greater than 65% and right ventricular systolic pressure 35 mmHg. -Continue to monitor #Chronic medical problems: -Continue home omeprazole, fluoxetine, carbidopa/levodopa, budesonide/formoterol DVT prophylaxis with Alps Nothing by mouth Full code Problem List: 1. Bladder outflow obstruction Pain Ratin Pain Location: no pain Pain Goal: Remain pain free Pain Plan: see a/p Tomorrow's Labs & Rationales: cbc, bep
--- NOTE | 2017-03-26 12:17 | PN- Urology ---
Surgical Brief Attending Note Brief Attending Note: PT WITH URETHRAL TRAUMA: MUST KEEP MCCALL: OK TO DC HOME PER MEDICINE WITH M[facility]. F/U IN OFFICE IN 2 WEEKS ([phone])
--- NOTE | 2017-03-26 12:44 | Patient Discharge Instructions ---
Discharge Instructions General Discharge Information You were seen/treated for: hematuria DANG new onset afib/flutter Special Instructions: -please follow with pcp in 7 days -please follow up with urology 7 dyas after discharge -please follow with cardiology 7 dyas after discharge. Diet Recommended Diet: Heart Healthy Activity Full Activity/No Limits: Yes (as tolerated) Acute Coronary Syndrome Inclusion Criteria At DC or during hospital stay patient has or had the following: ACS DIAGNOSIS No Discharge Core Measures Meds if any: Prescribed or Continued at Discharge Meds if any: NOT Prescribed or Continued at Discharge Congestive Heart Failure Inclusion Criteria At DC or during hospital stay patient has or had the following: CHF DIAGNOSIS No Discharge Core Measures Meds if any: Prescribed or Continued at Discharge Meds if any: NOT Prescribed or Continued at Discharge Cerebrovascular accident Inclusion Criteria At DC or during hospital stay patient has or had the following: CVA/TIA Diagnosis No Discharge Core Measures Meds if any: Prescribed or Continued at Discharge Meds if any: NOT Prescribed or Continued at Discharge Venous thromboembolism Inclusion Criteria VTE Diagnosis No VTE Type NONE VTE Confirmed by (Test) NONE Discharge Core Measures - Per Current guidelines, there needs to be overlap - treatment for the first 5 days of Warfarin therapy. - If discharged on Warfarin prior to 5 days of - overlap therapy, the patient will need to be - assessed for post discharge needs including - *Post discharge parental anticoagulation - *Warfarin and/or parental anticoagulation education - *Follow up date to check INR post discharge At least 5 days overlap therapy as Inpatient No Meds if any: Prescribed or Continued at Discharge Note: Overlap Therapy is Warfarin and Anticoagulant Meds if any: NOT Prescribed or Continued at Discharge
[2017-03-26 14:24] VITALS: BP 130/92
[2017-03-26 16:38] VITALS: BP 144/76
[2017-03-26 19:36] VITALS: BP 130/66
[2017-03-26 23:04] VITALS: BP 130/56
[2017-03-27 06:00] VITALS: BP 122/78
[2017-03-27 07:53] LABS: ABSOLUTE BASOPHIL COUNT 0 /CUMM (0.0-0.2); ABSOLUTE EOSINOPHIL COUNT 0.7 /CUMM (0.0-0.7); ABSOLUTE GRANULOCYTE CT 7.5 /CUMM (1.4-6.5); ABSOLUTE LYMPH COUNT 1.2 /CUMM (1.2-3.4); ABSOLUTE MONOCYTE COUNT 1.2 /CUMM (0.10-0.60); BASOPHIL % 0.4 % (0.0-2.0); GRANULOCYTE % 70.6 % (42.2-75.2); HEMATOCRIT 29.5 % (42-52); MEAN CORPUSCULAR HGB 28.7 PG (27.0-31.0); MEAN CORPUSCULAR HGB CONC 31.9 G/DL (33.0-37.0); MEAN CORPUSCULAR VOLUME 90.1 FL (80.0-94.0); MEAN PLATELET VOLUME 7.7 FL (7.4-10.4); PLATELET COUNT 376 /CUMM (130-400); RBC DISTRIBUTION WIDTH 17.5 % (11.5-14.5); RED BLOOD CELL CT 3.28 /CUMM (4.70-6.10); WHITE BLOOD CELL COUNT 10.6 /CUMM (4.8-10.8)
--- NOTE | 2017-03-27 08:03 | PN- Housestaff ---
See Addendum Subjective Follow-up For: Afib with [facility] Tele-Events Since Last Visit: Afib, 80-140 Subjective: No overnight events. Patient continues to feel well. Having some hematuria in wu this morning. Review of Systems Constitutional: Reports: no symptoms. EENTM: Reports: no symptoms. Cardiovascular: Reports: no symptoms. Respiratory: Reports: no symptoms. Gastrointestinal: Reports: no symptoms. Genitourinary: Reports: see HPI. Musculoskeletal: Reports: no symptoms. Skin: Reports: no symptoms. Neurological/Psychological: Reports: no symptoms. Hematologic/Endocrine: Reports: no symptoms. Immunologic/Allergic: Reports: no symptoms. Objective Last 24 Hrs of Vital Signs/I&O Vital Signs Date Time Temp Pulse Resp B/P B/P Pulse O2 O2 Flow FiO2 Mean Ox Delivery Rate 03/27 0600 98.5 105 22 122/78 95 03/27 0000 Room Air 03/26 2347 141 126/80 03/26 2304 98.5 141 22 130/56 95 Room Air 03/26 1936 124 130/66 03/26 1638 98.3 140 28 144/76 94 Room Air 03/26 1621 140 144/76 03/26 1600 94 Room Air 03/26 1424 98.0 70 18 130/92 94 Intake & Output 03/27 0800 03/27 0000 03/26 1600 Intake Total 120 580 720 Output Total 700 900 750 Balance -580 -320 -30 Intake, IV 130 120 Intake, Oral 120 450 600 Number 1 Bowel Movements Output, Urine 700 900 750 Physical Exam General Appearance: Alert, Oriented X3, Cooperative, No Acute Distress Cardiovascular: irregular Lungs: Clear to Auscultation Abdomen: Normal Bowel Sounds, Soft, No Tenderness, wu with red colored urine Extremities: No Edema Current Medications: Current Medications Sig/Jairon Start time Last Medication Dose Route Stop Time Status Admin Acetaminophen 650 MG Q6P PRN 03/21 1245 AC PO Apixaban 5 MG BID 03/25 1332 AC 03/26 PO 2137 Budesonide/ 2 PUF BID 03/21 220 AC 03/27 Formoterol Fumarate INH 0753 Carbidopa/Levodopa 1 TAB TID 03/21 220 AC 03/27 PO 0753 Ceftriaxone Sodium 1,000 MG DAILY 03/25 1000 DC 03/26 IV 0754 Digoxin 0.125 MG 1700 03/25 1700 AC 03/26 PO 1621 Diltiazem HCl 125 MG Q12H 03/27 0800 AC 03/27 Dextrose/Water 100 ML IV 0752 Diltiazem HCl 125 MG 0200,1000,1800 03/24 1800 DC 03/26 Dextrose/Water 100 ML IV 03/27 0759 2137 Finasteride 5 MG DAILY 03/22 1229 AC 03/27 PO 0753 Fluoxetine HCl 20 MG DAILY 03/22 1000 AC 03/27 PO 0753 Metoprolol Tartrate 25 MG .STK-MED ONE 03/26 2343 DC PO 03/26 2344 Metoprolol Tartrate 12.5 MG BID 03/26 2301 AC 03/27 PO 0753 Omeprazole 20 MG DAILY 03/22 1000 AC 03/27 PO 0753 Phosphate 250 MG PC AND AT BEDTIME 03/25 1800 AC 03/27 PO 0752 Senna/Docusate Sodium 2 TAB .STK-MED ONE 03/26 0806 DC PO 03/26 0807 Senna/Docusate Sodium 2 TAB DAILY PRN 03/25 1730 AC 03/26 PO 0806 Last 24 Hrs of Lab/Benjie Results Last 24 Hrs of Labs/Mics: Laboratory Tests 03/27/17 0628: Sodium Pending, Potassium Pending, Chloride Pending, Carbon Dioxide Pending, Anion Gap Pending, BUN Pending, Creatinine Pending, BUN/Creatinine Ratio Pending , CBC w Diff NO MAN DIFF REQ, RBC 3.28 L, MCV 90.1, MCH 28.7, MCHC 31.9 L, RDW 17.5 H, MPV 7.7, Gran % 70.6, Lymphocytes % 11.2 L, Monocytes % 10.8 H, Eosinophils % 7.0 H, Basophils % 0.4, Absolute Granulocytes 7.5 H, Absolute Lymphocytes 1.2, Absolute Monocytes 1.2 H, Absolute Eosinophils 0.7, Absolute Basophils 0 Assessment/Plan Assessment: Mr. Hull is a 72-year-old male with past medical history significant for hypertension, COPD, dementia, Parkinson disease, depression, GERD, who presented to ED from [facility] after a fall. Problem list 1. Fall 2. New onset atrial fibrillation/A flutter 3. Traumatic wu 4. DANG 5. Bilateral lower extremity edema 6. Acute blood loss anemia #New onset atrial fibrillation/A flutter: Patient received 3 boluses of 10 mg IV diltiazem in the ED and was still tachycardic. He was started on a diltiazem drip. Digoxin was started as well. EKG and troponins 3 negative. We have been asking cardiology for input regarding the tachycardia. Yesterday, metoprolol was started but this morning the rates are again in the 100-140s. He may benefit from STEPH followed by cardioversion given that this is new onset. -Continue apixiban -Continue diltiazem drip; we may be able to transition to oral medication today -Continue digoxin. -Appreciate cardiology recommendations: There is no note from cardiology since . -Continue metoprolol #Traumatic wu: Abdominal ultrasound showed a suspicious bladder mass. Wu catheter was placed in the ED and yielded 2.5 mL of clear yellow urine afterwards patient had syeda hematuria. PSA also elevated at 8.51. Urology evaluated and noted that the Wu was inserted through the urethra, below the prostate, and behind the bladder into the retroperitoneum. Wu is now correctly inserted. From urology standpoint, he can be discharged and should follow up in 1 week for evaluation. -Continuous bladder irrigation -Appreciate urology recommendations: outpatient follow up -Continue finasteride -Do not remove wu #Fall: Patient has history of fall, unclear if he lost his consciousness or not. Was found alert oriented on the floor, hit his head, CT didn't show any intracranial changes. Orthostatic vital was negative. -Continue to monitor #Acute blood loss anemia: Patient presented with hemoglobin 10.4/32.5, no previous baseline. After draining 2500 mL of clear urine by Wu catheter, patient started to have syeda hematuria. Likely secondary to traumatic wu insertion. He has received 1 unit packed red blood cell. Hemoglobin has been stable since. -2 large-bore peripheral IV lines -Type and crossmatch -Hemoglobin goal greater than 8 per cardiology #Bilateral lower extremity edema: Likely chronic in nature. TTE revealed EF greater than 65% and right ventricular systolic pressure 35 mmHg. -Continue to monitor #DANG: Resolved. #Chronic medical problems: -Continue home omeprazole, fluoxetine, carbidopa/levodopa, budesonide/formoterol DVT prophylaxis with apixiban Heart healthy, no caffeine Full code Problem List: 1. New onset a-fib Pain Ratin Pain Location: no pain Pain Goal: Remain pain free Pain Plan: see a/p Tomorrow's Labs & Rationales: maira dunn
--- NOTE | 2017-03-27 13:13 | PN- Cardiology ---
Subjective Subjective: Very hard of hearing, but no complaints. The ventricular response to his atrial flutter has come under better control. Objective Vital Signs and I&Os Vital Signs Date Time Temp Pulse Resp B/P B/P Pulse O2 O2 Flow FiO2 Mean Ox Delivery Rate 03/27 0753 118 118/62 03/27 0600 98.5 105 22 122/78 95 03/27 0000 Room Air 03/26 2347 141 126/80 03/26 2304 98.5 141 22 130/56 95 Room Air 03/26 1936 124 130/66 03/26 1638 98.3 140 28 144/76 94 Room Air 03/26 1621 140 144/76 03/26 1600 94 Room Air 03/26 1424 98.0 70 18 130/92 94 Intake & Output 03/27 0803/27 0000 03/26 1600 03/26 0000 Intake Total 120 580 720 470 375 Output Total 700 510 774 1594 Balance -580 - 375 Intake, IV 130 120 120 195 Intake, Oral 120 450 600 350 180 Number 1 Bowel Movements Output, Urine 700 [phone] Physical Exam: Well-developed, well-nourished elderly male in no acute distress. Vital signs: See above. HEENT: Normocephalic, atraumatic, EOMI, slightly dry mucous membranes. Neck: No JVD, no bruits. Lungs: Clear to auscultation bilaterally. Heart: S1, S2 with 1/6 systolic murmur. No gallop or rub. PMI fifth ICS at MCL. Abdomen: Soft, nontender, positive bowel sounds. Extremities: Trace bilateral lower extremity edema. Current Medications: Current Medications Sig/Jairon Start time Last Medication Dose Route Stop Time Status Admin Acetaminophen 650 MG Q6P PRN 03/21 1245 AC PO Apixaban 5 MG BID 03/25 1332 03/27 PO 0813 Budesonide/ 2 PUF BID 03/21 Formoterol Fumarate INH 0753 Carbidopa/Levodopa 1 TAB TID 03/21 PO 0753 Digoxin 0.125 MG 1700 03/25 1700 03/26 PO 1621 Diltiazem HCl 125 MG Q12H 03/27 0800 03/27 Dextrose/Water 100 ML IV 0752 Diltiazem HCl 125 MG 0200,1000,1800 03/24 1800 DC 03/26 Dextrose/Water 100 ML IV 03/27 0759 2137 Finasteride 5 MG DAILY 03/22 1229 AC 03/27 PO 0753 Fluoxetine HCl 20 MG DAILY 03/22 1000 AC 03/27 PO 0753 Metoprolol Tartrate 25 MG .STK-MED ONE 03/26 2343 DC PO 03/26 2344 Metoprolol Tartrate 12.5 MG BID 03/26 2301 AC 03/27 PO 0753 Omeprazole 20 MG DAILY 03/22 1000 AC 03/27 PO 0753 Phosphate 250 MG PC AND AT BEDTIME 03/25 1800 AC 03/27 PO 1232 Senna/Docusate Sodium 2 TAB DAILY PRN 03/25 1730 AC 03/26 PO 0806 Results Last 48 Hrs of Labs/Mics: Laboratory Tests 03/27/17 0628: Anion Gap 12, Estimated GFR > 60, BUN/Creatinine Ratio 18.0, CBC w Diff NO MAN DIFF REQ, RBC 3.28 L, MCV 90.1, MCH 28.7, MCHC 31.9 L, RDW 17.5 H, MPV 7.7, Gran % 70.6, Lymphocytes % 11.2 L, Monocytes % 10.8 H, Eosinophils % 7.0 H, Basophils % 0.4, Absolute Granulocytes 7.5 H, Absolute Lymphocytes 1.2, Absolute Monocytes 1.2 H, Absolute Eosinophils 0.7, Absolute Basophils 0, Digoxin 1.3 03/26/17 0630: Anion Gap 11, Estimated GFR > 60, BUN/Creatinine Ratio 15.0, Phosphorus 2.7, Magnesium 2.0, CBC w Diff NO MAN DIFF REQ, RBC 3.21 L, MCV 90.8, MCH 29.0, MCHC 31.9 L, RDW 18.0 H, MPV 7.9, Gran % 76.0 H, Lymphocytes % 9.7 L, Monocytes % 8.6, Eosinophils % 5.5 H, Basophils % 0.2, Absolute Granulocytes 8.0 H, Absolute Lymphocytes 1.0 L, Absolute Monocytes 0.9 H, Absolute Eosinophils 0.6 , Absolute Basophils 0 Assessment/Plan Assessment/Plan [id number] w/ hx HTN , COPD, dementia, depression, Parkinson's disease, GERD, and deafness who presented to ED from his assisting living facility following a mechanical fall and who was found to be in atrial flutter w/ 2:1 block on his 12-lead ECG. The patient is extremely hard of hearing precluding our ability to easily communicate. Have discussed management with the house staff on a daily basis. The ventricular response to his atrial flutter has come under better control on his present regimen: digoxin 0.125 mg by mouth (after total of 1 mg IV loading, followed by 0.25 mg daily that was cut back to 0.125 mg daily 2/2 high therapeutic level on 03/25/2017 of 1.9ng/ml), IV diltiazem drip at 15 ml/hr, and the addition of metoprolol 12.5 mg twice daily on 03/26/2017. We were finally able to add the beta hui when his blood pressure improved. His present diltiazem drip rate will be roughly equivalent to 480 mg oral diltiazem daily, which is the maximum dosage recommended. Would recommend placing on a total of 360 mg daily as diltiazem 120 mg 3 times daily which can be titrated up if necessary. Now that his blood pressure has improved, we could go up on his metoprolol from 12.5 mg twice daily to 25 mg twice daily rather than placing him on the highest allowed maximum dosage of diltiazem. Fortunately, his blood pressure has also improved. H/H Blood loss anemia with hemoglobin 8.2 g/dl. Consider transfusion to maintain hemoglobin at or above 8.0 g/dl. Renal function has reflected by his BUN/creatinine has significantly improved. Recommendations: * On digoxin 0.125 mg daily and continue to periodically follow-up trough levels. * Switch to oral diltiazem, as outlined above. * Restart anticoagulation when cleared by urology. * Continue DVT prophylaxis. Continue telemetry? Yes
[2017-03-27 14:27] VITALS: BP 130/84
[2017-03-27 23:03] VITALS: BP 138/60
[2017-03-28 06:10] VITALS: BP 110/92
[2017-03-28 08:11] LABS: ABSOLUTE BASOPHIL COUNT 0.1 /CUMM (0.0-0.2); ABSOLUTE EOSINOPHIL COUNT 0.6 /CUMM (0.0-0.7); ABSOLUTE GRANULOCYTE CT 8.2 /CUMM (1.4-6.5); ABSOLUTE LYMPH COUNT 1.3 /CUMM (1.2-3.4); ABSOLUTE MONOCYTE COUNT 0.8 /CUMM (0.10-0.60); BASOPHIL % 0.5 % (0.0-2.0); EOSINOPHIL % 5.4 % (0-5); GRANULOCYTE % 74.4 % (42.2-75.2); HEMATOCRIT 30.4 % (42-52); MEAN CORPUSCULAR HGB 28.8 PG (27.0-31.0); MEAN CORPUSCULAR VOLUME 90.1 FL (80.0-94.0); MEAN PLATELET VOLUME 7.9 FL (7.4-10.4); PLATELET COUNT 398 /CUMM (130-400); RBC DISTRIBUTION WIDTH 16.9 % (11.5-14.5); RED BLOOD CELL CT 3.37 /CUMM (4.70-6.10)
--- NOTE | 2017-03-28 08:58 | PN- Housestaff ---
Rasheed,Jovanyoctavio 03/28/17 0857: Subjective Follow-up For: Atrial flutter Hematuria Tele-Events Since Last Visit: A fluangelaer, -90 Subjective: I have seen and examined the patient. Patient is feeling better today heart rate is under control today most likely discharge to rehabilitation tomorrow Review of Systems Constitutional: Reports: see HPI. Objective Last 24 Hrs of Vital Signs/I&O Vital Signs Date Time Temp Pulse Resp B/P B/P Pulse O2 O2 Flow FiO2 Mean Ox Delivery Rate 03/28 1654 96 96/50 03/28 1422 98.7 92 20 110/80 95 Room Air 03/28 0921 102 110/92 03/28 0610 97.9 102 24 110/92 92 Room Air 03/28 0546 138/60 03/28 0000 Room Air Room Air 03/27 2303 97.6 118 26 138/60 93 03/27 2216 138/60 Intake & Output 03/28 1600 03/28 0800 03/28 0000 Intake Total 800 100 100 Output Total 500 500 750 Balance 300 -400 -650 Intake, Oral 800 100 100 Number 1 1 Bowel Movements Output, Urine 500 500 750 Physical Exam General Appearance: Alert, Oriented X3, Cooperative, No Acute Distress Other Physical Findings: Cardiovascular: irregular Lungs: Clear to Auscultation Abdomen: Normal Bowel Sounds, Soft, No Tenderness, wu with red colored urine Current Medications: Current Medications Sig/Jairon Start time Last Medication Dose Route Stop Time Status Admin Acetaminophen 650 MG Q6P PRN 03/21 1245 AC PO Apixaban 5 MG BID 03/25 1332 AC 03/28 PO 0920 Budesonide/ 2 PUF BID 03/21 2200 AC 03/28 Formoterol Fumarate INH 0920 Carbidopa/Levodopa 1 TAB TID 03/21 2200 AC 03/28 PO 1654 Digoxin 0.125 MG 1700 03/25 1700 AC 03/28 PO 1654 Diltiazem HCl 240 MG DAILY 03/28 1130 AC 03/28 PO 1352 Diltiazem HCl 60 MG Q6 03/27 1415 DC 03/28 PO 0546 Diltiazem HCl 125 MG Q12H 03/27 0800 DC 03/27 Dextrose/Water 100 ML IV 0752 Finasteride 5 MG DAILY 03/22 1229 AC 03/28 PO 0920 Fluoxetine HCl 20 MG DAILY 03/22 1000 AC 03/28 PO 0920 Metoprolol Tartrate 25 MG BID 03/27 2200 AC 03/28 PO 0921 Omeprazole 20 MG DAILY 03/22 1000 AC 03/28 PO 0920 Phosphate 250 MG PC AND AT BEDTIME 03/25 1800 AC 03/28 PO 1655 Senna/Docusate Sodium 2 TAB DAILY PRN 03/25 1730 AC 03/26 PO 0806 Last 24 Hrs of Lab/Benjie Results Last 24 Hrs of Labs/Mics: Laboratory Tests 03/28/17 0705: Anion Gap 10, Estimated GFR > 60, BUN/Creatinine Ratio 24.4, CBC w Diff NO MAN DIFF REQ, RBC 3.37 L, MCV 90.1, MCH 28.8, MCHC 32.0 L, RDW 16.9 H, MPV 7.9, Gran % 74.4, Lymphocytes % 12.1 L, Monocytes % 7.6, Eosinophils % 5.4 H, Basophils % 0.5, Absolute Granulocytes 8.2 H, Absolute Lymphocytes 1.3, Absolute Monocytes 0.8 H, Absolute Eosinophils 0.6, Absolute Basophils 0.1 Assessment/Plan Assessment: Mr. Hull is a 72-year-old male with past medical history significant for hypertension, COPD, dementia, Parkinson disease, depression, GERD, who presented to ED from [facility] [place] [facility] after a fall. Problem list 1. Fall 2. New onset atrial fibrillation/A flutter 3. Traumatic wu 4. DAGN 5. Bilateral lower extremity edema 6. Acute blood loss anemia #New onset atrial fibrillation/A flutter -change from short acting cardizem to long acting Cardizem to like acting today -Continue no lack -Continue digoxin. -Continue metoprolol #Traumatic wu: Abdominal ultrasound showed a suspicious bladder mass. Wu catheter was placed in the ED and yielded 2.5 mL of clear yellow urine afterwards patient had syeda hematuria. PSA also elevated at 8.51. Urology evaluated and noted that the Wu was inserted through the urethra, below the prostate, and behind the bladder into the retroperitoneum. Wu is now correctly inserted. From urology standpoint, he can be discharged and should follow up in 2 week for evaluation. -Appreciate urology recommendations: outpatient follow up -Continue finasteride -Do not remove wu #Fall: Patient has history of fall, unclear if he lost his consciousness or not. Was found alert oriented on the floor, hit his head, CT didn't show any intracranial changes. Orthostatic vital was negative. -Continue to monitor -STR tomorrow #Acute blood loss anemia: Patient presented with hemoglobin 10.4/32.5, no previous baseline. After draining 2500 mL of clear urine by Wu catheter, patient started to have syeda hematuria. Likely secondary to traumatic wu insertion. He has received 1 unit packed red blood cell. -Hemoglobin has been stable since. -Hemoglobin goal greater than 8 per cardiology #Bilateral lower extremity edema: Likely chronic in nature. TTE revealed EF greater than 65% and right ventricular systolic pressure 35 mmHg. -Continue to monitor #DANG: Resolved. #Chronic medical problems: -Continue home omeprazole, fluoxetine, carbidopa/levodopa, budesonide/formoterol DVT prophylaxis with apixiban Heart healthy, no caffeine Full code Problem List: 1. New onset a-fib 2. Hematuria Pain Ratin Pain Location: same Pain Goal: Pain 4 or less Pain Plan: same Tomorrow's Labs & Rationales: cbc bep Latoya Horn 03/28/17 1708: Attending MD Review Statement Attending Statement Attending MD Statement: examined this patient, discuss w/resident/PA/BRAKE ENGINEER, agreed w/resident/PA/BRAKE ENGINEER, reviewed EMR data (avail) Attending Assessment/Plan: afib with RVR- rate better controlled. changed cardizem to long acting 240mg qd. dc to [facility] tomorrow on wu cath and will fu with urology clinic as an outpatient.
[2017-03-28 14:22] VITALS: BP 110/80
[2017-03-28 22:17] VITALS: BP 118/50
[2017-03-29 07:55] LABS: ABSOLUTE BASOPHIL COUNT 0 /CUMM (0.0-0.2); ABSOLUTE EOSINOPHIL COUNT 0.6 /CUMM (0.0-0.7); ABSOLUTE GRANULOCYTE CT 9.1 /CUMM (1.4-6.5); ABSOLUTE LYMPH COUNT 1.5 /CUMM (1.2-3.4); BASOPHIL % 0.3 % (0.0-2.0); EOSINOPHIL % 4.5 % (0-5); GRANULOCYTE % 74.6 % (42.2-75.2); HEMATOCRIT 32.2 % (42-52); MEAN CORPUSCULAR HGB 29.1 PG (27.0-31.0); MEAN CORPUSCULAR VOLUME 90.8 FL (80.0-94.0); MEAN PLATELET VOLUME 7.6 FL (7.4-10.4); PLATELET COUNT 441 /CUMM (130-400); RBC DISTRIBUTION WIDTH 17.2 % (11.5-14.5); RED BLOOD CELL CT 3.54 /CUMM (4.70-6.10); WHITE BLOOD CELL COUNT 12.2 /CUMM (4.8-10.8)
--- NOTE | 2017-03-29 08:23 | PN- Housestaff ---
Rasheed,Jagjitdeb 03/29/17 0822: Subjective Follow-up For: Atrial flutter Hematuria Tele-Events Since Last Visit: aflutter 89-114 Subjective: I have seen and examined the patient. he is very hard of hearing. HR lowr than 100 but still sometimes remains high. we may increase the dosage of cardizem, wbc is slightly elevated no fevers Review of Systems Constitutional: Reports: see HPI. Objective Last 24 Hrs of Vital Signs/I&O Vital Signs Date Time Temp Pulse Resp B/P B/P Pulse O2 O2 Flow FiO2 Mean Ox Delivery Rate 03/29 0000 Room Air 03/28 2217 97.6 138 18 118/50 96 Room Air 03/28 2142 137 118/50 03/28 2142 137 118/50 03/28 1654 96 96/50 03/28 1600 Room Air 03/28 1422 98.7 92 20 110/80 95 Room Air 03/28 0921 102 110/92 Intake & Output 03/29 1600 03/29 0800 03/29 0000 Intake Total 0 450 Output Total 1000 550 Balance -1000 -100 Intake, Oral 0 450 Number 1 Bowel Movements Output, Urine 1000 550 Physical Exam General Appearance: Alert, Oriented X3, Cooperative, No Acute Distress Other Physical Findings: Cardiovascular: irregular Lungs: Clear to Auscultation Abdomen: Normal Bowel Sounds, Soft, No Tenderness, wu with red colored urine Extremities: No Edema Current Medications: Current Medications Sig/Jairon Start time Last Medication Dose Route Stop Time Status Admin Acetaminophen 650 MG Q6P PRN 03/21 1245 AC PO Apixaban 5 MG BID 03/25 1332 AC 03/28 PO 2140 Budesonide/ 2 PUF BID 03/21 2200 AC 03/28 Formoterol Fumarate INH 2139 Carbidopa/Levodopa 1 TAB TID 03/21 2200 AC 03/28 PO 2140 Digoxin 0.125 MG 1700 03/25 1700 AC 03/28 PO 1654 Diltiazem HCl 30 MG ONCE ONE 03/28 2044 DC 03/28 PO 03/28 Diltiazem HCl 240 MG DAILY 03/28 1130 AC 03/28 PO 1352 Diltiazem HCl 60 MG Q6 03/27 1415 DC 03/28 PO 0546 Diltiazem HCl 125 MG Q12H 03/27 0800 DC 03/27 Dextrose/Water 100 ML IV 0752 Finasteride 5 MG DAILY 03/22 1229 AC 03/28 PO 0920 Fluoxetine HCl 20 MG DAILY 03/22 1000 AC 03/28 PO 0920 Metoprolol Tartrate 25 MG BID 03/27 2200 AC 03/28 PO 2142 Omeprazole 20 MG DAILY 03/22 1000 AC 03/28 PO 0920 Phosphate 250 MG PC AND AT BEDTIME 03/25 1800 AC 03/28 PO 2140 Senna/Docusate Sodium 2 TAB DAILY PRN 03/25 1730 AC 03/26 PO 0806 Last 24 Hrs of Lab/Benjie Results Last 24 Hrs of Labs/Mics: Laboratory Tests 03/29/17 0645: Anion Gap 9, Estimated GFR > 60, BUN/Creatinine Ratio 27.8 H, CBC w Diff NO MAN DIFF REQ, RBC 3.54 L, MCV 90.8, MCH 29.1, MCHC 32.0 L, RDW 17.2 H, MPV 7.6, Gran % 74.6, Lymphocytes % 12.4 L, Monocytes % 8.2, Eosinophils % 4.5, Basophils % 0.3, Absolute Granulocytes 9.1 H, Absolute Lymphocytes 1.5, Absolute Monocytes 1.0 H, Absolute Eosinophils 0.6, Absolute Basophils 0 Assessment/Plan Assessment: Mr. Hull is a 72-year-old male with past medical history significant for hypertension, COPD, dementia, Parkinson disease, depression, GERD, who presented to ED from [facility] after a fall. Problem list 1. Fall 2. New onset atrial fibrillation/A flutter 3. Traumatic wu 4. DANG 5. Bilateral lower extremity edema 6. Acute blood loss anemia #New onset atrial fibrillation/A flutter -change from short acting cardizem to long acting Cardizem to like acting today -may increase cardizen dosage to 300 mg today -Continue NOAC -Continue digoxin. -Continue metoprolol #Traumatic wu: Abdominal ultrasound showed a suspicious bladder mass. Wu catheter was placed in the ED and yielded 2.5 mL of clear yellow urine afterwards patient had syeda hematuria. PSA also elevated at 8.51. Urology evaluated and noted that the Wu was inserted through the urethra, below the prostate, and behind the bladder into the retroperitoneum. Wu is now correctly inserted. From urology standpoint, he can be discharged and should follow up in 2 week for evaluation. -Appreciate urology recommendations: outpatient follow up -Continue finasteride -Do not remove wu #Fall: Patient has history of fall, unclear if he lost his consciousness or not. Was found alert oriented on the floor, hit his head, CT didn't show any intracranial changes. Orthostatic vital was negative. -Continue to monitor -STR tomorrow #Acute blood loss anemia: Patient presented with hemoglobin 10.4/32.5, no previous baseline. After draining 2500 mL of clear urine by Wu catheter, patient started to have syeda hematuria. Likely secondary to traumatic wu insertion. He has received 1 unit packed red blood cell. -Hemoglobin has been stable since. -Hemoglobin goal greater than 8 per cardiology #Bilateral lower extremity edema: Likely chronic in nature. TTE revealed EF greater than 65% and right ventricular systolic pressure 35 mmHg. -Continue to monitor #DANG: Resolved but bun incrteasing we should encourage oral intake #Chronic medical problems: -Continue home omeprazole, fluoxetine, carbidopa/levodopa, budesonide/formoterol DVT prophylaxis with apixiban Heart healthy, no caffeine Full code Problem List: 1. New onset a-fib 2. Hematuria Pain Ratin Pain Location: NO PAIN Pain Goal: Pain 4 or less Pain Plan: SAME Tomorrow's Labs & Rationales: CBC BEP Latoya Horn 03/29/17 1625: Attending MD Review Statement Attending Statement Attending MD Statement: examined this patient, discuss w/resident/PA/CARTON INSPECTOR, agreed w/resident/PA/CARTON INSPECTOR, reviewed EMR data (avail) Attending Assessment/Plan: Afib with RVR- still having high HR, increase cardizem to 300mg. encouraged pt to drink more fluids given increased BUN. d/w pt the care plan. possible dc to [facility] tomrrow.
[2017-03-29 12:00] VITALS: BP 110/60
--- NOTE | 2017-03-29 12:36 | PN- Cardiology ---
Subjective Subjective: Patient remains in atrial flutter. Ventricular rate is under control. No current complaints. No chest pain. No shortness of breath. No palpitations. No diaphoresis. Objective Vital Signs and I&Os Vital Signs Date Time Temp Pulse Resp B/P B/P Pulse O2 O2 Flow FiO2 Mean Ox Delivery Rate 03/29 1020 96 118/50 03/29 0000 Room Air 03/28 2217 97.6 138 18 118/50 96 Room Air 03/28 2142 137 118/50 03/28 2142 137 118/50 03/28 1654 96 96/50 03/28 1600 Room Air 03/28 1422 98.7 92 20 110/80 95 Room Air Intake & Output 03/29 1600 03/29 0800 03/29 0000 03/28 1600 03/28 0800 03/28 0000 Intake Total 0 450 800 100 100 Output Total 1000 550 500 500 750 Balance -1000 -100 300 -400 -650 Intake, Oral 0 450 800 100 100 Number 1 1 1 Bowel Movements Output, Urine 1000 550 500 500 750 Physical Exam: Well-developed, well-nourished elderly male in no acute distress. Vital signs: See above. HEENT: Normocephalic, atraumatic, EOMI, slightly dry mucous membranes. Neck: No JVD, no bruits. Lungs: Clear to auscultation bilaterally. Heart: S1, S2 with 1/6 systolic murmur. No gallop or rub. PMI fifth ICS at MCL. Abdomen: Soft, nontender, positive bowel sounds. Extremities: Trace bilateral lower extremity edema. Current Medications: Current Medications Sig/Jairon Start time Last Medication Dose Route Stop Time Status Admin Acetaminophen 650 MG Q6P PRN 03/21 1245 AC PO Apixaban 5 MG BID 03/25 1332 AC 03/29 PO 1019 Budesonide/ 2 PUF BID 03/21 2200 AC 03/29 Formoterol Fumarate INH 1020 Carbidopa/Levodopa 1 TAB TID 03/21 2200 AC 03/29 PO 1021 Digoxin 0.125 MG 1700 03/25 1700 AC 03/28 PO 1654 Diltiazem HCl 300 MG DAILY 03/29 1000 AC 03/29 PO 1020 Diltiazem HCl 30 MG ONCE ONE 03/28 2044 DC 03/28 PO 03/28 Diltiazem HCl 240 MG DAILY 03/28 1130 DC 03/28 PO 1352 Finasteride 5 MG DAILY 03/22 1229 AC 03/29 PO 1019 Fluoxetine HCl 20 MG DAILY 03/22 1000 AC 03/29 PO 1019 Metoprolol Tartrate 25 MG BID 03/27 2200 AC 03/29 PO 1020 Omeprazole 20 MG DAILY 03/22 1000 AC 03/29 PO 1019 Phosphate 250 MG PC AND AT BEDTIME 03/29 1300 AC PO Phosphate 250 MG PC AND AT BEDTIME 03/25 1800 DC 03/29 PO 1019 Senna/Docusate Sodium 2 TAB DAILY PRN 03/25 1730 AC 03/26 PO 0806 Results Last 48 Hrs of Labs/Mics: Laboratory Tests 03/29/17 0645: Anion Gap 9, Estimated GFR > 60, BUN/Creatinine Ratio 27.8 H, Phosphorus 3.8, CBC w Diff NO MAN DIFF REQ, RBC 3.54 L, MCV 90.8, MCH 29.1, MCHC 32.0 L, RDW 17.2 H, MPV 7.6, Gran % 74.6, Lymphocytes % 12.4 L, Monocytes % 8.2, Eosinophils % 4.5, Basophils % 0.3, Absolute Granulocytes 9.1 H, Absolute Lymphocytes 1.5, Absolute Monocytes 1.0 H, Absolute Eosinophils 0.6, Absolute Basophils 0 03/28/17 0705: Anion Gap 10, Estimated GFR > 60, BUN/Creatinine Ratio 24.4, CBC w Diff NO MAN DIFF REQ, RBC 3.37 L, MCV 90.1, MCH 28.8, MCHC 32.0 L, RDW 16.9 H, MPV 7.9, Gran % 74.4, Lymphocytes % 12.1 L, Monocytes % 7.6, Eosinophils % 5.4 H, Basophils % 0.5, Absolute Granulocytes 8.2 H, Absolute Lymphocytes 1.3, Absolute Monocytes 0.8 H, Absolute Eosinophils 0.6, Absolute Basophils 0.1 Assessment/Plan Assessment/Plan Assessment: 1. Hypertension 2. Parkinson's disease 3. Atrial flutter, recent onset. Rate under control. Anticoagulated. Plan: * Continue diltiazem, digoxin, metoprolol for rate control. * Continue Eliquis * Follow up with Dr. Abarca in 1 week after discharge Continue telemetry? Yes
[2017-03-29 14:39] VITALS: BP 118/58
[2017-03-29 23:02] VITALS: BP 110/70
[2017-03-30 06:35] VITALS: BP 98/58
--- NOTE | 2017-03-30 07:20 | PN- Housestaff ---
See Addendum Subjective Follow-up For: Afib RVR, traumatic wu Tele-Events Since Last Visit: Afib, 70-140 Subjective: No overnight events. Feels well this morning, no pain or issues. Review of Systems Constitutional: Reports: no symptoms. EENTM: Reports: no symptoms. Cardiovascular: Reports: no symptoms. Respiratory: Reports: no symptoms. Gastrointestinal: Reports: no symptoms. Genitourinary: Reports: no symptoms. Musculoskeletal: Reports: no symptoms. Skin: Reports: no symptoms. Neurological/Psychological: Reports: no symptoms. Hematologic/Endocrine: Reports: no symptoms. Immunologic/Allergic: Reports: no symptoms. Objective Last 24 Hrs of Vital Signs/I&O Vital Signs Date Time Temp Pulse Resp B/P B/P Pulse O2 O2 Flow FiO2 Mean Ox Delivery Rate 03/30 0635 97.6 67 18 98/58 93 Room Air 03/29 2302 97.6 103 20 110/70 95 03/29 2205 109 03/29 1758 101 102/50 03/29 1439 97.5 69 18 118/58 96 Room Air 03/29 1200 98.0 58 110/60 95 Room Air Room Air 03/29 1020 96 118/50 Intake & Output 03/30 0800 03/30 0000 03/29 1600 Intake Total 410 Output Total 650 1200 Balance -240 -1200 Intake, IV 10 Intake, Oral 400 Number 3 Bowel Movements Output, Urine 650 1200 Physical Exam General Appearance: Alert, Oriented X3, Cooperative, No Acute Distress Cardiovascular: irregular Lungs: Clear to Auscultation Abdomen: Normal Bowel Sounds, Soft, No Tenderness, wu draining yellow urine Extremities: No Cyanosis, No Edema Current Medications: Current Medications Sig/Jairon Start time Last Medication Dose Route Stop Time Status Admin Acetaminophen 650 MG Q6P PRN 03/21 1245 AC PO Apixaban 5 MG BID 03/25 1332 AC 03/29 PO 2205 Budesonide/ 2 PUF BID 03/21 220 AC 03/29 Formoterol Fumarate INH 2205 Carbidopa/Levodopa 1 TAB TID 03/21 2200 AC 03/29 PO 2205 Digoxin 0.125 MG 1700 03/25 1700 AC 03/29 PO 1758 Diltiazem HCl 300 MG DAILY 03/29 1000 AC 03/29 PO 1020 Diltiazem HCl 240 MG DAILY 03/28 1130 DC 03/28 PO 1352 Finasteride 5 MG DAILY 03/22 1229 AC 03/29 PO 1019 Fluoxetine HCl 20 MG DAILY 03/22 1000 AC 03/29 PO 1019 Metoprolol Tartrate 25 MG BID 03/27 2200 AC 03/29 PO 2205 Omeprazole 20 MG DAILY 03/22 1000 AC 03/29 PO 1019 Phosphate 250 MG PC AND AT BEDTIME 03/29 1300 AC 03/29 PO 2204 Phosphate 250 MG PC AND AT BEDTIME 03/25 1800 DC 03/29 PO 1019 Senna/Docusate Sodium 2 TAB DAILY PRN 03/25 1730 AC 03/26 PO 0806 Last 24 Hrs of Lab/Benjie Results Last 24 Hrs of Labs/Mics: Laboratory Tests 03/30/17 0705: Sodium Pending, Potassium Pending, Chloride Pending, Carbon Dioxide Pending, Anion Gap Pending, BUN Pending, Creatinine Pending, BUN/Creatinine Ratio Pending , CBC w Diff Pending, WBC Pending, RBC Pending, Hgb Pending, Hct Pending, MCV Pending, MCH Pending, MCHC Pending, RDW Pending, Plt Count Pending, MPV Pending Assessment/Plan Assessment: Mr. Hull is a 72-year-old male with past medical history significant for hypertension, COPD, dementia, Parkinson disease, depression, GERD, who presented to ED from [facility] after a fall. Problem list 1. New onset atrial fibrillation/A flutter with RVR 2. Traumatic wu 3. Fall 4. DANG 5. Bilateral lower extremity edema 6. Acute blood loss anemia 7. Hypernatremia #New onset atrial fibrillation/A flutter: EKG and troponins 3 negative. Rates have remained poorly controlled over the weekend and last night were 70-140. He may benefit from STEPH followed by cardioversion given that this is new onset. -Continue apixiban -Continue diltiazem 300 mg daily. Consider increasing dose -Continue digoxin 0.125 mg daily -Appreciate cardiology recommendations. Outpatient follow-up with cardiology recommended. -Continue metoprolol 25 mg twice a day #Hypernatremia: Today, sodium is 146. Patient was previously drinking large quantities of caffeinated soda beverages but this was stopped to prevent tachycardia from worsening. Seems like he has not drinking adequate amounts of water. -1 L D5 water 125 mL per hour -Encourage by mouth water intake #Traumatic wu: Abdominal ultrasound showed a suspicious bladder mass. Wu catheter was placed in the ED and yielded 2.5 mL of clear yellow urine afterwards patient had syeda hematuria. PSA also elevated at 8.51. Urology evaluated and noted that the Wu was inserted through the urethra, below the prostate, and behind the bladder into the retroperitoneum. Wu is now correctly inserted. From urology standpoint, he can be discharged and should follow up in 1 week for evaluation. -Continuous bladder irrigation -Appreciate urology recommendations: outpatient follow up -Continue finasteride -Do not remove wu #Fall: Patient has history of fall, unclear if he lost his consciousness or not. Was found alert oriented on the floor, hit his head, CT didn't show any intracranial changes. Orthostatic vital was negative. -Continue to monitor #Acute blood loss anemia: Patient presented with hemoglobin 10.4/32.5, no previous baseline. After draining 2500 mL of clear urine by Wu catheter, patient started to have syeda hematuria. Likely secondary to traumatic wu insertion. He has received 1 unit packed red blood cell. Hemoglobin has been stable since. -2 large-bore peripheral IV lines -Type and crossmatch -Hemoglobin goal greater than 8 per cardiology #Bilateral lower extremity edema: Likely chronic in nature. TTE revealed EF greater than 65% and right ventricular systolic pressure 35 mmHg. -Continue to monitor #DANG: Resolved. #Chronic medical problems: -Continue home omeprazole, fluoxetine, carbidopa/levodopa, budesonide/formoterol DVT prophylaxis with apixiban Heart healthy, no caffeine Full code Problem List: 1. New onset a-fib Pain Ratin Pain Location: none Pain Goal: Remain pain free Pain Plan: see a/p Tomorrow's Labs & Rationales: bep
[2017-03-30 08:30] LABS: ABSOLUTE BASOPHIL COUNT 0 /CUMM (0.0-0.2); ABSOLUTE EOSINOPHIL COUNT 0.5 /CUMM (0.0-0.7); ABSOLUTE GRANULOCYTE CT 8.2 /CUMM (1.4-6.5); ABSOLUTE LYMPH COUNT 1.5 /CUMM (1.2-3.4); ABSOLUTE MONOCYTE COUNT 1.1 /CUMM (0.10-0.60); BASOPHIL % 0.3 % (0.0-2.0); GRANULOCYTE % 72.7 % (42.2-75.2); MEAN CORPUSCULAR HGB 28.7 PG (27.0-31.0); MEAN CORPUSCULAR HGB CONC 31.6 G/DL (33.0-37.0); MEAN CORPUSCULAR VOLUME 90.7 FL (80.0-94.0); MEAN PLATELET VOLUME 7.7 FL (7.4-10.4); PLATELET COUNT 420 /CUMM (130-400); RBC DISTRIBUTION WIDTH 17.1 % (11.5-14.5); RED BLOOD CELL CT 3.42 /CUMM (4.70-6.10); WHITE BLOOD CELL COUNT 11.3 /CUMM (4.8-10.8)
--- NOTE | 2017-03-30 13:14 | PN- Cardiology ---
Subjective Subjective: No complaints. Remains in atrial flutter with ventricular response rates in the 60-70 bpm range. Objective Vital Signs and I&Os Vital Signs Date Time Temp Pulse Resp B/P B/P Pulse O2 O2 Flow FiO2 Mean Ox Delivery Rate 03/30 0804 100 98/48 03/30 0635 97.6 67 18 98/58 93 Room Air 03/29 2302 97.6 103 20 110/70 95 03/29 2205 109 03/29 1758 101 102/50 03/29 1439 97.5 69 18 118/58 96 Room Air Intake & Output 03/30 1600 03/30 0800 03/30 0000 03/29 1600 03/29 0800 03/29 0000 Intake Total 410 0 450 Output Total 299 535 2328 1000 550 Balance -500 -240 -1200 -1000 -100 Intake, IV 10 Intake, Oral 400 0 450 Number 3 1 Bowel Movements Output, Urine 632 822 2848 1000 550 Physical Exam: Well-developed, well-nourished elderly male in no acute distress. Vital signs: See above. HEENT: Normocephalic, atraumatic, EOMI, slightly dry mucous membranes. Neck: No JVD, no bruits. Lungs: Clear to auscultation bilaterally. Heart: S1, S2 with 1/6 systolic murmur. No gallop or rub. PMI fifth ICS at MCL. Abdomen: Soft, nontender, positive bowel sounds. Extremities: Trace bilateral lower extremity edema. Current Medications: Current Medications Sig/Jairon Start time Last Medication Dose Route Stop Time Status Admin Acetaminophen 650 MG Q6P PRN 03/21 1245 AC PO Apixaban 5 MG BID 03/25 1332 AC 03/30 PO 0802 Budesonide/ 2 PUF BID 03/21 2200 AC 03/30 Formoterol Fumarate INH 0804 Carbidopa/Levodopa 1 TAB TID 03/21 2200 03/30 PO 0803 Dextrose/Water 1,000 ML Q8H 03/30 1030 AC 03/30 IV 03/30 1829 1027 Digoxin 0.125 MG 1700 03/25 1700 AC 03/29 PO 1758 Diltiazem HCl 300 MG DAILY 03/29 1000 AC 03/30 PO 0803 Finasteride 5 MG DAILY 03/22 1229 AC 03/30 PO 0803 Fluoxetine HCl 20 MG DAILY 03/22 1000 AC 03/30 PO 0803 Metoprolol Tartrate 25 MG BID 03/27 2200 AC 03/30 PO 0804 Omeprazole 20 MG DAILY 03/22 1000 AC 03/30 PO 0803 Phosphate 250 MG PC AND AT BEDTIME 03/29 1300 AC 03/30 PO 0803 Senna/Docusate Sodium 2 TAB DAILY PRN 03/25 1730 AC 03/26 PO 0806 Results Last 48 Hrs of Labs/Mics: Laboratory Tests 03/30/17 0705: Anion Gap 12, Estimated GFR > 60, BUN/Creatinine Ratio 28.0 H, CBC w Diff NO MAN DIFF REQ, RBC 3.42 L, MCV 90.7, MCH 28.7, MCHC 31.6 L, RDW 17.1 H, MPV 7.7, Gran % 72.7, Lymphocytes % 13.0 L, Monocytes % 10.0 H, Eosinophils % 4.0, Basophils % 0.3, Absolute Granulocytes 8.2 H, Absolute Lymphocytes 1.5, Absolute Monocytes 1.1 H, Absolute Eosinophils 0.5, Absolute Basophils 0 03/29/17 0645: Anion Gap 9, Estimated GFR > 60, BUN/Creatinine Ratio 27.8 H, Phosphorus 3.8, CBC w Diff NO MAN DIFF REQ, RBC 3.54 L, MCV 90.8, MCH 29.1, MCHC 32.0 L, RDW 17.2 H, MPV 7.6, Gran % 74.6, Lymphocytes % 12.4 L, Monocytes % 8.2, Eosinophils % 4.5, Basophils % 0.3, Absolute Granulocytes 9.1 H, Absolute Lymphocytes 1.5, Absolute Monocytes 1.0 H, Absolute Eosinophils 0.6, Absolute Basophils 0 Assessment/Plan Assessment/Plan [id number] w/ hx HTN , COPD, dementia, depression, Parkinson's disease, GERD, and deafness who presented to ED from his assisting living facility following a mechanical fall and who was found to be in atrial fibrillation w/ 2:1 block on his 12-lead ECG. The patient is extremely hard of hearing making communication difficult. Have discussed management options with the house staff on a daily basis. The ventricular response to his atrial flutter is presently well controlled. Will continue on his presents cardiac regimen of diltiazem CD 300 mg daily, metoprolol 25 mg twice daily, and digoxin 0.125 mg daily for rate control and anticoagulation with the NOAC apixaban 5 mg twice daily. DVT prophylaxis being addressed by anticoagulation for his atrial flutter. Continue telemetry? Yes
--- NOTE | 2017-03-30 13:14 | Event Note ---
Event Note Event Note: S: The patient has been admitted in the hospital for over a week with difficulty controlling his heart rate secondary to new onset atrial fibrillation with rapid ventricular rate. B:Mr. Hull is a 72-year-old male with past medical history significant for hypertension, COPD, dementia, Parkinson disease, depression, GERD, who presented to ED from [facility] after a fall. A/R: I talked to Dr. Abarca and there are 2 options for this patient. He could have a STEPH in the hospital with subsequent cardioversion or outpatient cardioversion at a later date. Because we were having difficulty controlling his heart rate, we were considering doing the STEPH and cardioversion here. However, after communicating with the patient via written messages (he has profound deafness), he has indicated that he does not want this procedure and that he does not want us to discuss it with his family. He would prefer his family does not know about this.
[2017-03-30 14:19] VITALS: BP 102/60
[2017-03-30 22:21] VITALS: BP 122/60
[2017-03-31 07:00] VITALS: BP 128/76
--- NOTE | 2017-03-31 07:38 | PN- Housestaff ---
Angel REID,Te 03/31/17 0737: Subjective Follow-up For: New onset atrial fibrillation/A flutter with RVR Traumatic wu Fall DANG Bilateral lower extremity edema Acute blood loss anemia Hypernatremia Tele-Events Since Last Visit: Subjective: Patient was seen and examined today. States he is hungry this morning. Had no complaints today. No acute events overnight. Review of Systems Constitutional: Reports: no symptoms. Cardiovascular: Reports: no symptoms. Respiratory: Reports: no symptoms. Gastrointestinal: Reports: no symptoms. Genitourinary: Reports: no symptoms. Musculoskeletal: Reports: no symptoms. Neurological/Psychological: Reports: no symptoms. Objective Last 24 Hrs of Vital Signs/I&O Vital Signs Date Time Temp Pulse Resp B/P B/P Pulse O2 O2 Flow FiO2 Mean Ox Delivery Rate 03/31 1247 97.5 98 20 96/46 03/31 1135 98 96/46 03/31 0816 104 128/76 03/31 0800 95 Room Air 03/31 0700 97.5 104 20 128/76 94 Room Air 03/30 2221 97.4 97 18 122/60 95 Room Air 03/30 2206 97 122/60 03/30 1718 89 112/60 Intake & Output 03/31 1600 03/31 0800 03/31 0000 Intake Total 100 440 Output Total 750 Balance 100 -310 Intake, Oral 100 440 Output, Urine 750 Physical Exam General Appearance: Alert, Cooperative, No Acute Distress HEENT: Atraumatic, PERRLA, EOMI, Mucous Membr. moist/pink Cardiovascular: Normal S1, Normal S2, irregular rate Lungs: Clear to Auscultation, Normal Air Movement Abdomen: Normal Bowel Sounds, Soft, No Tenderness Extremities: No Clubbing, No Cyanosis, No Edema, Normal Pulses, No Tenderness/ Swelling Current Medications: Current Medications Sig/Jairon Start time Last Medication Dose Route Stop Time Status Admin Acetaminophen 650 MG Q6P PRN 03/21 1245 DCD PO Apixaban 5 MG BID 03/25 1332 DCD 03/31 PO 0815 Budesonide/ 2 PUF BID 03/21 2200 DCD 03/31 Formoterol Fumarate INH 0816 Carbidopa/Levodopa 1 TAB TID 03/21 2200 DCD 03/31 PO 0815 Dextrose/Water 1,000 ML Q8H 03/30 1030 DC 03/30 IV 03/30 1829 1027 Digoxin 0.125 MG 1700 03/25 1700 DCD 03/30 PO 1718 Diltiazem HCl 300 MG DAILY 03/29 1000 DCD 03/31 PO 0815 Finasteride 5 MG DAILY 03/22 1229 DCD 03/31 PO 0815 Fluoxetine HCl 20 MG DAILY 03/22 1000 DCD 03/31 PO 0815 Metoprolol Tartrate 50 MG BID 03/31 2200 DC PO Metoprolol Tartrate 25 MG BID 03/31 2200 DCD PO Metoprolol Tartrate 25 MG ONCE ONE 03/31 1045 DC PO 03/31 1046 Metoprolol Tartrate 25 MG BID 03/27 2200 DC 03/31 PO 0816 Omeprazole 20 MG DAILY 03/22 1000 DCD 03/31 PO 0815 Phosphate 250 MG PC AND AT BEDTIME 03/29 1300 DC 03/31 PO 0815 Senna/Docusate Sodium 2 TAB DAILY PRN 03/25 1730 DCD 03/26 PO 0806 Last 24 Hrs of Lab/Benjie Results Last 24 Hrs of Labs/Mics: Laboratory Tests 03/31/17 0622: Anion Gap 11, Estimated GFR > 60, BUN/Creatinine Ratio 32.5 H Lines/Diet/Fluids Wu Still Needed? Yes (will be followed outpatient ) Assessment/Plan Assessment: Mr. Hull is a 72-year-old male with past medical history significant for hypertension, COPD, dementia, Parkinson disease, depression, GERD, who presented to ED from [facility] after a fall. Problem list 1. New onset atrial fibrillation/A flutter with RVR 2. Traumatic wu, indwelling wu - stable 3. Fall 4. DANG- Resolved 5. Bilateral lower extremity edema 6. Acute blood loss anemia 7. Hypernatremia- Resolved #New onset atrial fibrillation/A flutter: EKG and troponins 3 negative. Rates have remained poorly controlled over the weekend and last night were 70-140. He may benefit from STEPH followed by cardioversion given that this is new onset. -Continue apixiban -Continue diltiazem 300 mg daily. -Continue digoxin 0.125 mg daily -Appreciate cardiology recommendations. Outpatient follow-up with cardiology recommended. -Continue metoprolol tartrate 25 mg twice a day #Hypernatremia: Resolved. Today, sodium is 141. Patient was previously drinking large quantities of caffeinated soda beverages but this was stopped to prevent tachycardia from worsening. Likely secondary to dehydration. Resolved after 1L of D5W -Encouraged to stay fluids #Traumatic wu: Abdominal ultrasound showed a suspicious bladder mass. Wu catheter was placed in the ED and yielded 2.5 mL of clear yellow urine afterwards patient had syeda hematuria. PSA also elevated at 8.51. Urology evaluated and noted that the Wu was inserted through the urethra, below the prostate, and behind the bladder into the retroperitoneum. Wu is now correctly inserted. -Continuous bladder irrigation -Appreciate urology recommendations: outpatient follow up -Continue finasteride -Patient will be discharged with wu in place. Patient will follow up with urology outpatient for further management. #Fall: Patient has history of fall, unclear if he lost his consciousness or not. Was found alert oriented on the floor, hit his head, CT didn't show any intracranial changes. Orthostatic vital was negative. -Continue to monitor #Acute blood loss anemia: Patient presented with hemoglobin 10.4/32.5, no previous baseline. After draining 2500 mL of clear urine by Wu catheter, patient started to have syeda hematuria. Likely secondary to traumatic wu insertion. He has received 1 unit packed red blood cell. No syeda hematuria seen in wu. H&H is stable. Patient stable for discharge. #Bilateral lower extremity edema: Likely chronic in nature. TTE revealed EF greater than 65% and right ventricular systolic pressure 35 mmHg. -Continue to monitor #DANG: Resolved. #Chronic medical problems: -Continue home omeprazole, fluoxetine, carbidopa/levodopa, budesonide/formoterol DVT prophylaxis with apixiban Heart healthy, no caffeine Full code Problem List: 1. New onset a-fib 2. Hematuria Pain Ratin Pain Location: n/a Pain Goal: Remain pain free Pain Plan: tylenol PRN Tomorrow's Labs & Rationales: none - discharge to [facility] today Latyoa Horn 03/31/172: Attending MD Review Statement Attending Statement Attending MD Statement: examined this patient, discuss w/resident/PA/DRIVER/SALES WORKERS, agreed w/resident/PA/DRIVER/SALES WORKERS, reviewed EMR data (avail), discussed with nursing, discussed with case mgmt Attending Assessment/Plan: Pt being dced to [facility]. Pt was offered STEPH and cardioversion which he refused. Pt was encouraged to maintain hydration. Please see dc summary for more details. refused. Pt was encouraged to maintain hydration. Please see dc summary for more details.
[2017-03-31] MEDS ORDERED: METOPROLOL TART50 M1 PO (11:09)
[2017-03-31 12:47] VITALS: BP 96/46
[2017-03-31] MEDS ORDERED: DILTIAZEM 24HR300 M2 PO (13:02)
[2017-03-31] MEDS ORDERED: LANOXIN125 MCG PO (13:02)
[2017-03-31] MEDS ORDERED: METOPROLOL TART25 M1 PO (13:07)
--- NOTE | 2017-04-01 07:34 | Operative Report ---
See Addendum Operative/Inv Procedure Report Surgery Date: 03/21/17 Name of Procedure: cystoscopy: difficult insertion of wu Pre-Operative Diagnosis: gross hematuria with retention. Post-Operative Diagnosis: same Estimated Blood Loss: large clot in bladder Surgeon/Legal Project Manager: MD Adelso, Hua, UROLOGY Anesthesia: laryngeal mask airway Drains: 20fr [place] tip wu Specimens: clot Complications: none Operative/Procedure Note Note: The patient was taken to the operative room and placed on the OR table in supine position. Timeout was performed in order to confirm the patient's identity, procedure, anesthesia, antibiotics, as well as any other pertinent information. After adequate anesthesia, and antibiotics, the patient was then placed lithotomy stirrups draped and prepped in the usual surgical fashion. A 22 Finnish cystoscope sheath with a 30 angle lens was inserted into the urethra and upon advancing the cystoscope slowly, a large traumatic false passage was seen undermining the prostate with significant bleed. The cystoscope was then Advanced into the bladder, under direct visualization without difficulty. The bladder was noted to have a large amount of clot, which was then evacuated with Blanca syringe and sent to pathology. The bladder was then hydrodistended 2 with the irrigation fluid at 40 cm above the symphysis pubis. No evidence of tumor, increased petechiae, nor Hunner's ulceration was noted. Both ureteral orifices had clear reflux in their orthotopic position. There were no stones, no tumors seen in the bladder. A 0.038 Glidewire was then inserted into the bladder via the cystoscope. Leaving the Glidewire in place, the cystoscope was removed under direct visualization. A 20 Finnish [place] tip Wu was railroaded over the Glidewire, and advanced into the bladder without significant difficulty draining clear fluid. 10 mL of sterile water was placed into the 10 mL balloon. The bladder Was then drained was then irrigated copiously with sterile water via the Wu catheter, with clear return. The patient tolerated procedure well and was taken to recovery room in satisfactory condition. He is to keep the Wu catheter for a minimum of 1 week prior to voiding trial in order to allow the urethral trauma to heal. Findings: false passage undermining the prostate at the bulbar urethra with bleed from prior wu cath. attemtps. Discharge Disposition: PACU CC: Hua Darden MD
== END 2017-03-31 13:46 | DRG 683 ==
LOC: ERH 06:41 → 1NO 11:13 → ERHI 11:13 → ENRESERV 14:08 → ENTRNSPT 16:18 → EDTRNSPTSTS 16:21 → EDTRNSPT 16:21 → 1NO 16:25 → CMPTRNSPT 16:42 → 1NO 03-22 14:27 → ENPENDDIS 03-31 13:37 → 1NO 03-31 13:46
PROVIDERS: Internal Medicine; Pediatrics; Radiology Vascular & Interventional Radiology; Student in an Organized Health Care Education/Training Program
PROC: 0TJB8ZZ Inspection of Bladder, Via Natural or Artificial Opening Endoscopic (ICD-10-PCS; principal; 2017-03-24)
DX: N17.9 Acute kidney failure, unspecified (principal); D62 Acute posthemorrhagic anemia; G20 Parkinson's disease; T19.0XXA Foreign body in urethra, initial encounter; I48.91 Unspecified atrial fibrillation; F02.80 Dementia in other diseases classified elsewhere, unspecified severity, without behavioral disturbance, psychotic disturbance, mood disturbance, and anxiety; R31.0 Gross hematuria; N13.9 Obstructive and reflux uropathy, unspecified
CPT/HCPCS: 1NP; 36415; 71045; 73080-RT; 73562-RT; 74018; 74176; 81001; 82436; 86920; 87086; 88305; 93005; 93010; 93306; 96365; 96366; 96376; 97110-GO; 97112-GO; 97116-GO; 97161-GP; 97530-GO; 99291; J0696; J1160; J1650; J3490; J7040; J7060; P9016